=== PATIENT | female | born 1960 | race Caucasian/White ===

== ENCOUNTER 2018-04-01 09:00 | Outpatient (RCR) | payer OTHER, SELFPAY ==
--- NOTE | 2018-03-02 09:30 | PTTR_ITS ---
DATE: 03/02/18 SUBJECTIVE: Indicated she is slowly improving, still has sensitivity at end range flexion. OBJECTIVE: * x Ultrasound - (x 8 mins) - 51730x9: Received ultrasound x 8 minutes at 3 mHz at 1.0 w/cm2 to left greater tubercle region. Manual therapy: (05839l6). Mobilization of left fannie-hum jt while in supine consisting of inferior and posterior glides, as well as caudal distraction. AA/PROM throughout all planes. STM to posterior cuff and TFM to anterior cuff. PA mobs at grade 1/2 to mid to upper thoracic vertebrae. CFM to lev scap and periscapular region. Therapeutic procedures (70981o4). * x See flow sheet: Focus on AAROM , scap stabilization and light theraband resisted IR/ ER. Performed 10 minutes of wellness with assistive personnel at no charge. * x Provided skilled instruction in proper exercise performance * x Provided skilled manual cues to facilitate proper muscle recruitment and/ or movement pattern * x Electrical Stim Unattended - [id number]: Ended session with IFC and MHP x 15 minutes to left shoulder at no charge. Direct treatment time: 40 minutes Total treatment time: 65 minutes
--- NOTE | 2018-03-04 10:30 | PTTR_ITS ---
DATE: 03/04/18 SUBJECTIVE: Delphine indicates that she continues to note improvement being made with her treatment. Manual therapy: (22461k3). Did receive mobilization of the L GH joint while in supine position. Mobilization did include inferior/posterior glides, caudal distraction, AAROM throughout all planes, cross friction to the greater tubercle region was performed as well as positional release techniques to posterior cuff and brief trigger point work throughout the periscapular region and upper trap. While in prone position did receive PA mobs at grade 2 to the thoracic vertebra. Did receive ultrasound 3 mhz, 50% duty cycle at 1.0 w/cm2 to L greater tubercle region x8 mins. Therapeutic procedures (21715s5). * x See flow sheet: with focus on scap stabilization and cuff strengthening. * x Other: finishing with wellness. She ended with IFC with moist heat x15 mins while in seated position at no charge. Direct treatment time: 30 mins Total treatment time: 60 mins SG/dl
--- NOTE | 2018-03-08 09:30 | PTTR_ITS ---
DATE: 03/08/18 SUBJECTIVE: Patient reports her shoulders have felt aggravated the past few days. She states she has been doing some lifting at work over the weekend. Rates her pain overall as 3-4/10. States she has been compliant with her HEP including the shoulder ER stretches. OBJECTIVE: Manual therapy: (19133g3). Reassessed left shoulder AROM at start of session. Flexion 150 degrees which is equal to right shoulder flexion, abduction 180, FIR to T9, and ER to 40 degrees. Performed left glenohumeral caudal distraction. Grade 2/3 left glenohumeral joint mobilizations inferior and posterior directions. STM anterior and posterior cuff, upper trapezius, and levator scapula. TP release infraspinatus/teres minor musculature. Cross friction massage over greater tuberosity. PROM into left shoulder flexion, abduction, ER, and IR. Therapeutic procedures (33945l2). [X] See flow sheet: Continued progressing left shoulder ROM, scapular stabilization and rotator cuff strengthening program. [X] Provided skilled instruction in proper exercise performance: for proper body mechanics and postural awareness. [X] Provided skilled manual cues to facilitate proper muscle recruitment and/or movement pattern: Continued with wellness portion of program x 20 minutes to complete ther-ex. Followed by 10 minutes of cryotherapy to the left shoulder. Will continue to advance and progress to strong I self management program within symptom allowance. Will monitor response to holding on the ultrasound. Direct treatment time: 30 minutes Total treatment time: 60 minutes Agatha Verma, SPT Lauren Almanza,MPT
--- NOTE | 2018-03-11 09:30 | PTTR_ITS ---
DATE: 03/11/18 SUBJECTIVE: Patient reports she has no pain upon arrival. She has been completing her HEP. She is working everyday this weekend. States she felt good after the exercises last session. OBJECTIVE: Manual therapy: (07021n0). Performed left glenohumeral joint caudal distraction. Grade 2/3 inferior and posterior glenohumeral joint mobilizations. STM left anterior and posterior cuff, upper trapezius, and levator scapula. Cross friction massage over greater tuberosity. Patient is still sensitive over greater tuberosity and reminded to perform self cross friction massage at home for desensitization. P/AAROM into shoulder flexion, abduction, ER, and IR. Therapeutic procedures (40015z3). [X] See flow sheet: Continued progressing left shoulder ROM, scapular stabilization, and rotator cuff strengthening program. [X] Provided skilled instruction in proper exercise performance: for proper body mechanics and postural awareness [X] Provided skilled manual cues to facilitate proper muscle recruitment and/or movement pattern: to inhibit upper trapezius activation during standing rows. Continued with wellness portion of program x 10 minutes for completion of ther- ex. Cryotherapy x 10 minutes to left shoulder in seated position post session. Direct treatment time: 30 minutes Total treatment time: 50 minutes Agatha Verma, SPT Lauren Almanza, MPT
--- NOTE | 2018-03-14 10:00 | PTTR_ITS ---
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 Post PT session patient indicated shoulder was feeling better than upon arrival. OBJECTIVE: Manual therapy: (81764n2). Mobilization of left fannie-hum jt while in supine consisting of inferior / posterior glides, caudal and lateral distraction and P/AAROM throughout all planes. TFM to anterior cuff, PRT to posterior cuff and TPM to upper traps and lev scap soft tissue. Performed 10 reps of active assistive PNF D1/D2 exercise within pain free ROM today. Therapeutic procedures (50105e6). * x See flow sheet: Focus was on AAROM, scap stabilization and rotator cuff strengthening. Performed 15 minutes of wellness with assistive personnel at no charge. * x Provided skilled instruction in proper exercise performance * x Provided skilled manual cues to facilitate proper muscle recruitment and/ or movement pattern * Ended session with IFC and cryotherapy x 15 minutes at no charge. Direct treatment time: 30 minutes Total treatment time: 60 minutes
--- NOTE | 2018-03-17 13:34 | PTTR_ITS ---
DATE: 03/17/18 SUBJECTIVE: Delphine reports that her shld is still sore but is feeling better today than earlier this week. OBJECTIVE: Manual therapy: (71011c2). mobilizations of left GH jt including posterior and inferior glides, caudal and lateral distractions. P/AAROM. STM t/o posterior cuff as well as levator scap and upper trap. CFM over anterior cuff, I also worked into her deltoid area. Therapeutic procedures (79479v5). * x See flow sheet: RTC strengthening and scapular stabilizations. * x Provided skilled instruction in proper exercise performance: proper scapular positioning. She ended with IFC and cryo to shld x 15 min at no charge. Direct treatment time: 30 min Total treatment time: 55 min
--- NOTE | 2018-03-21 09:00 | PTTR_ITS ---
DATE: March 21, 2018 SUBJECTIVE: Delphine reports ~75 % improved since her IE. She however notes that she had a tough weekend noting increased tightness into her left shoulder and cervical spine. She awoken with a tension TAYLOR on Wednesday and has struggled with it since. OBJECTIVE: Upon reassessment AROM left shoulder flexion 150 degrees, abduction 160 with painful arch, IR T9, ER 55 degrees. PROM flexion 160 degrees , abduction 175 degrees, IR 80 degrees at 90 degrees abduction, ER 75 degrees at 90 degrees abduction. Manual therapy: (36526x3). Manual cervical distractions. Side bending and rotation stretching. GH joint mobilization to the left shoulder Gr III inferior and posterior glides. STM throughout the anterior and posterior cuff. CFM to the greater tuberosity. TPR to the upper trap, lev scap and throughout the periscapular musculature. P/AAROM performed throughout all planes. Therapeutic procedures (21367g9). * HEP review: Recommended self massage techniques with use of tennis ball / theracane or wand to reduce triggers points that continue to develop. * X See flow sheet: Incorporated modified program today due to level of irritation. * X Provided skilled instruction in proper exercise performance: * X Provided skilled manual cues to facilitate proper muscle recruitment and/ or movement pattern: Electrical Stim Unattended - 91958w1: Provided to the left shoulder post therex along with cryotherapy for 15 minutes at no charge. She does not have a follow up consult with her PCP at this time however due to continued pain and limited function with lifting and overhead tasks feel at this time she consult with Dr. Woods again in question of further intervention via injection or orthopedic consult. Direct treatment time: 40 minutes Total treatment time: 55 minutes
--- NOTE | 2018-03-24 09:03 | PTTR_ITS ---
DATE: 03/24/18 SUBJECTIVE: Delphine indicates that her shoulder has actually felt pretty good for the past couple of days. Does get some increasing soreness with mobilization and therapeutic exercises, but realizes she has to continue stretching the shoulder in order to increase her ROM. OBJECTIVE: Manual therapy: (96144j9). Mobs of the left glenohumeral jt while in supine to include inferior and posterior glides, caudal and lateral distractions as well as AA/PROM throughout all planes. Minimal sensitivity noted with palpation of the anterior cuff, but did have notable sensitivity at the posterior cuff. Performed positional release techniques to this area, as well as brief trigger point work to the upper traps and rhomboids while in right side lying with a pillow between her knees, under her head and under her left UE. Therapeutic procedures (98905e7). * x See flow sheet: focus was on AAROM with [place] Pulleys, finger ladder and ball on the wall. * x Electrical Stim Unattended - 18313o3: applied x15 min. with cryotherapy while seated to the left shoulder. Direct treatment time: 30 min. Total treatment time: 45 min. SG/gc
--- NOTE | 2018-03-28 08:30 | PTTR_ITS ---
DATE: 03/28/18 SUBJECTIVE: Delphine continues to complain of up and down symptoms. She is overall had an okay weekend. Follows up with Dr. Woods on the . Manual therapy: (90111l5). GH joint mobilization of the L shoulder, inferior/ posterior glides, grade 2-3, caudal distraction, P/AAROM performed throughout all planes. PNF D1-D2 performed AA, soft tissue work to the anterior/posterior cuff, desensitization via cross friction to the greater tuberosity, trigger point work to the upper trap, levator scap. Therapeutic procedures (30298k0). Promoting rotator cuff, scap stabilization, end range GH mobility * x See flow sheet: * x Provided skilled instruction in proper exercise performance: * x Provided skilled manual cues to facilitate proper muscle recruitment and/ or movement pattern: Ended with cryotherapy to L shoulder post session. Direct treatment time: 30 mins Total treatment time: 50 mins with 10 mins of wellness and ice to the shoulder. KW/dl
--- NOTE | 2018-04-01 09:00 | PTTR_ITS ---
DATE: April 01, 2018 SUBJECTIVE: Delphine reports that Dr. Woods did not feel that an injection would help at this time. He feels that she can continue with her HEP at this time on her own to continue to promote her end range mobility. She continues to have ups and downs. She continues to utilize ice for pain reduction. Overall continues to feel that she has made gains just wished it would last longer. OBJECTIVE: Manual therapy: (77040q6).GH joint mobilization to the left shoulder in supine Gr II/III inferior and posterior glides. P/AAROM to the left shoulder. STM throughout the anterior and posterior cuff. CFM to the greater tuberosity and TPR to the upper trap and lev scap. Recommended that she continue with self massage techniques via therawand or cane or use of a tennis ball. Therapeutic procedures (64726p5). * X HEP review: Upgraded HEP to include PRE to the RTC and scapular stabilizers. Issued orange resistance band for continued stabilization. Reviewed her home stretches and emphasized importance of continuing with her ROM to prevent loss of mobility. * X See flow sheet: RTC strength and scapular stabilization along with AA/ AROM via wall climb, pulleys and ball walk on wall. * X Provided skilled instruction in proper exercise performance: promoting body mechanics and postural awareness. * X Provided skilled manual cues to facilitate proper muscle recruitment and/ or movement pattern: avoiding compensatory movement patterns. * X Other: Recommended utilizing the wall as a posture correction for continues to remain very forward increasing level of impingement pain. Electrical Stim Unattended - 57946y4: Provided to the left shoulder post session along with cryotherapy for 15 minutes. Patient at this time will be considered discharged from our care to independent self management program via MD order. Patient will contact us with any questions or concerns. If further problems occur recommend further consultation with PCP. Direct treatment time: 40 minutes Total treatment time: 55 minutes
== END 2018-04-01 23:59 | disposition home or self-care (01) ==
LOC: PT 09:00
PROVIDERS: PCP Emergency Medicine; Referring Provider Emergency Medicine; Visit Provider Emergency Medicine
DX: M75.02 Adhesive capsulitis of left shoulder (principal); M65.812 Other synovitis and tenosynovitis, left shoulder
CPT/HCPCS: 97014; 97035; 97110; 97140

== ENCOUNTER 2018-05-20 08:36 | Emergency (ER) | payer OTHER, SELFPAY ==
[2018-05-20 09:05] VITALS: BP 134/78; PULSE 120; RESP 16; TEMP 36.6; O2SAT 95
[2018-05-20] MEDS: Normal Saline 1,000 ML 1000 ML IV ×2 (09:40→12:10)
[2018-05-20] MEDS: Ondansetron 4 MG/2 ML VIAL IVP ×2 (09:46→12:43)
[2018-05-20] MEDS: MORPHine 10 MG/ML VIAL 2 MG IVP (09:47)
[2018-05-20 09:53] LABS: Abs Immature Grans 0.01 k/cumm (0.0-0.09); Absolute Basophil Count 0.01 k/cumm (0.0-0.2); Absolute Eosinophil Count 0.15 k/cumm (0.0-0.7); Absolute Lymphocyte Count 1.31 k/cumm (1.2-3.4); Absolute Monocyte Count 0.56 k/cumm (0.11-0.7); Absolute Neutrophil Count 6.99 k/cumm (1.2-6.7); Basophils % 0.1; Eosinophils % 1.7; HCT 42.7 % (36.0-46.0); HGB 13.8 g/dL (12.0-15.5); Immature Grans % 0.1; Lymphocytes % 14.5; Mean Corp. HGB Concentration 32.3 g/dL (32.0-36.0); Mean Corpuscular Hemoglobin 30.3 pg (27.0-33.0); Mean Corpuscular Volume 93.6 fL (80-95); Mean Platelet Volume 9.7 fL (8.0-11.0); Monocytes % 6.2; Neutrophils % 77.4; Platelet Count 298 x1000/uL (130-400); RBC 4.56 m/cumm (4.00-5.20); White Blood Cell Count 9.03 k/cumm (4.4-10.8)
[2018-05-20 10:07] LABS: ALT 37 U/L (12-78); AST 25 U/L (15-37); Albumin 3.5 g/dL (3.4-5.0); Alkaline Phosphatase 116 U/L (46-116); Anion Gap 11.2 mmol/L (3-11); BUN 18 mg/dL (7-18); Bilirubin, Total 0.6 mg/dL (0.2-1.0); CO2 25.8 mmol/L (21.0-32.0); CREATININE 1.37 mg/dL (0.55-1.02); Calcium 9.1 mg/dL (8.5-10.1); Chloride 102 mmol/L (98-107); Estimated GFR 39.74 (mL/min/1.73m2); Glucose 177 mg/dL (70-100); Lipase 96 U/L (73-393); Potassium 3.6 mmol/L (3.5-5.1); Sodium 139 mmol/L (136-145); Total Protein 7.9 g/dL (6.4-8.2)
[2018-05-20] MEDS: Omnipaque 350 MG/ML 50 ML BTL IJ (10:07)
[2018-05-20] MEDS: Breeza Beverage 473 ML BTL PO ×2 (10:07→10:08)
--- NOTE | 2018-05-20 10:46 | DI.CT_ITS ---
SYMPTOMS/DIAGNOSIS: ABD PAIN ABDOMINAL AND PELVIC CT: CT examination of the abdomen and pelvis was performed with oral contrast only. Images obtained through the lung bases are unremarkable. Note is made of hepatic steatosis. The gallbladder has been surgically removed. A small calcified splenic presumed granuloma is noted. The pancreas is unremarkable in appearance. No biliary dilatation seen. The abdominal aorta is of normal diameter. No abdominal or pelvic adenopathy. Bilateral fat containing inguinal hernias are noted. The adrenals and kidneys appear normal. No evidence of urinary tract calcification or obstruction. The appendix appears normal. The cecum appears to have a thickened irregular wall. The possibility of neoplastic vs inflammatory disease raised. Correlation with colonoscopy recommended. There is diverticulosis without evidence of diverticulitis. STRADDLE BUG structures appear intact. CONCLUSION: Normal appearance of the appendix but question irregular cecal wall thickening, neoplastic vs inflammatory cause. Colonoscopy recommended for further evaluation.
--- NOTE | 2018-05-20 12:17 | W.ED.GENAD ---
Discharge Plan Disposition Patient Disposition: HOME Condition: Improving Discharge Details Chief Complaint: Nausea/Vomit/Diar Clinical Impression: Abdominal pain, Nausea vomiting and diarrhea, Decreased renal function Primary Care Provider: Benny Woods ED Provider: Nishant Alvarez Home Meds and New Rx's Prescriptions: New ondansetron 4 mg tablet,disintegrating 4 mg PO QID PRN (Reason: nausea and vomiting) Qty: 12 RF: 0 Continue ibuprofen 800 MG tablet 800 mg PO TID PRNQty: 90 RF: 0 triamcinolone acetonide 60 ML lotion 1 grecia Topical DAILY, THEN PRN Qty: 1 RF: 0 cholecalciferol (vitamin D3) 1,000 UNIT tablet 1,000 unit PO DAILY Qty: 90 RF: 3 albuterol sulfate [Proventil HFA] 6.7 GM HFA aerosol inhaler 2 puff Inhalation Q6H PRN Qty: 1 RF: 2 duloxetine [Cymbalta] 60 MG capsule,delayed release(DR/EC) 60 mg PO DAILY Qty: 90 RF: 3 omeprazole 20 MG capsule,delayed release(DR/EC) 20 mg PO DAILY Qty: 90 RF: 3 sumatriptan succinate [Imitrex] 50 MG tablet 50 mg PO ONCE Qty: 10 RF: 4 levothyroxine [Synthroid] 100 MCG tablet 100 mcg PO DAILY Qty: 90 RF: 3 quetiapine 100 MG tablet 100 mg PO HS RF: 0 lamotrigine 100 MG tablet 100 mg PO DAILY RF: 0 modafinil 100 MG tablet 100 mg PO DAILY RF: 0 lisinopril 20 MG tablet 20 mg PO DAILY Qty: 60 RF: 3 clonazepam 1 MG tablet 1 mg PO HS Qty: 60 RF: 0 Discharge Instructions Instructions: Acute Nausea and Vomiting (ED), Abdominal Pain (ED) Additional Instructions: Feel free to return to the emergency department immediately for any new or worsening symptoms otherwise follow-up with your primary care provider and general surgeon for further testing and reassess Referrals: Benny Woods DO [Primary Care Provider] - 1 week (Please follow-up with your primary care provider for reassessment of your kidney function) Varinder Bryant DO [ [facility] STAFF PHYSICIAN] - 1 week (Please follow-up with general surgeon in the next 1-2 weeks for arrangement of colonoscopy testing) Discharge Data Discharge Date/Time-TO BE ENTERED AT DEPARTURE: 05/20/18 14:52 Medical Decision Making Patient presenting to the emergency department for abdominal pain. Patient states left lower pain. Physical exam shows diffuse nonspecific abdominal pain otherwise unremarkable exam. Labs and CT imaging performed. Pending results patient given Zofran, IV fluids, and morphine. Labs show signs of dehydration and some notation made of previous labs converted today decreasing renal function. It is questionable if this is more due to patient not being able to tolerate any p.o. intake for the last 2-3 days or if ongoing decreased renal function is being noted. Plan to give second liter of IV fluids pending other results. Also of notation is no leukocytosis and otherwise unremarkable labs. Patient with radiologist regarding CT imaging shows normal appendix, post cholecystectomy, and some cecal wall thickening that is concerning for inflammatory changes versus possible malignancy. She was reassessed and did have some improvement of her symptoms. Patient p.o. challenged and was able to tolerate intake of water which had not been able to do. Patient encouraged to stay well-hydrated and advance diet as tolerated. Patient placed up on follow-up list for primary care for reassessment of decreasing renal function versus dehydration and also placed on general surgery follow-up list for need of colonoscopy at recommendation of radiologist which I agree with this recommendation. After discussion of diagnosis and plan of care patient is no further needs, questions, or concerns and states clear understanding to return to the emergency department for any worsening symptoms. HPI General Mode of arrival: ambulatory. Date/Time Provider Initiated Documentation: 05/20/18 09:10. Limitations to Documentation: no limitations. Information obtained by: patient, RN notes reviewed and old records reviewed. History of Present Illness 57 year old F presents to the emergency department with the chief complaint of abd pain, described as moderate, with intensity rated at 8. Quality is described as aching and sharp, and is localized to the abdomen. Patient started experiencing this year(s) (2) and it has been intermittent. No relieving factors improve symptom(s), No exacerbating factors reported . Patient did receive the following treatments prior to arrival, none Related Data Home Medications Medication Instructions Recorded Confirmed ibuprofen 800 mg PO TID PRN #90 tab-cap 11/07/14 triamcinolone acetonide 1 grecia TOPICAL DAILY, THEN PRN #1 12/11/14 tube cholecalciferol (vitamin D3) 1,000 unit PO DAILY #90 tab 10/18/15 albuterol sulfate [Proventil HFA] 2 puff INHALATION Q6H PRN #1 puff 01/10/16 duloxetine [Cymbalta] 60 mg PO DAILY #90 tab-cap 09/04/16 omeprazole 20 mg PO DAILY #90 tab-cap 10/07/16 05/20/18 sumatriptan succinate [Imitrex] 50 mg PO ONCE #10 tab 03/12/17 05/20/18 levothyroxine [Synthroid] 100 mcg PO DAILY #90 tab-cap 06/29/17 05/20/18 lamotrigine 100 mg PO DAILY tab-cap 01/12/18 lisinopril 20 mg PO DAILY #60 tab-cap 01/12/18 05/20/18 modafinil 100 mg PO DAILY 01/12/18 quetiapine 100 mg PO HS 01/12/18 05/20/18 clonazepam 1 mg PO HS #60 tab 03/31/18 ondansetron 4 mg PO QID PRN #12 tab 05/20/18 Previous Rx's Medication Instructions Recorded levothyroxine [Synthroid] 100 mcg PO DAILY #90 tab-cap 06/29/17 lisinopril 20 mg PO DAILY #60 tab-cap 01/12/18 clonazepam 1 mg PO HS #60 tab 03/31/18 ondansetron 4 mg PO QID PRN #12 tab 05/20/18 Allergies Allergy/AdvReac Type Severity Reaction Status Date / Time lactose Allergy Unverified 05/20/18 13:41 ziprasidone HCl [From Geodon] AdvReac Intermediate leg pain, Unverified 05/20/18 13:41 couldn't sit still ziprasidone mesylate AdvReac Intermediate leg pain, Unverified 05/20/18 13:41 [From Geodon] couldn't sit still amoxicillin [Amoxicillin] AdvReac GI upset Unverified 05/20/18 13:41 Metronidazole HCl AdvReac GI UPSET Unverified 05/20/18 13:41 [From Flagyl] General Stated Complaint: Nausea/Vomit/Diar MAYRA: 3 Review of Systems Constitutional Denies chills, Denies fever(s) and Reports poor appetite Cardiovascular Denies chest pain and Denies dyspnea Respiratory Denies dyspnea Gastrointestinal Reports as per HPI, Reports abdominal pain, Denies melena, Reports bloating, Denies change in bowel habits, Denies constipation, Denies heartburn, Reports diarrhea, Reports nausea and Reports vomiting Genitourinary Denies hematuria, Denies urinary incontinence, Denies urinary hesitancy and Denies urinary urgency Integumentary/Breasts Denies rash PFSH Social History Smoking/Tobacco Use Status: Never Surgical History Biopsy of breast Cholecystectomy Cystoscopy Oophrectomy, Left (~04/2012) Exam Const General: cooperative Orientation: alert, awake and oriented x3 Resp Effort & Inspection: normal respiratory effort and able to speak in complete sentences Auscultation: clear to auscultation bilaterally Cardio Rate: regular rate Rhythm: regular rhythm Heart Sounds: S1 normal and S2 normal GI Palpation: soft, no hepatosplenomegaly, not firm, no guarding, no masses, no pulsatile masses, not rigid, no splenomegaly and tender in the epigastrum, in the LLQ and in the LUQ; not at McBurney's point and Falcon's sign negative Auscultation: normal bowel sounds Back/Spine/Pelvis Back: no CVA tenderness Neuro General: alert, awake, oriented x3, gait normal and moves all extremities Course Vital Signs Temperature 36.6 C 05/20/18 09:05 Pulse 120 H 05/20/18 09:05 Respiratory Rate 16 05/20/18 09:05 Blood Pressure 134/78 05/20/18 09:05 Pulse Oximetry 95 05/20/18 09:05 Temperature 36.6 C 05/20/18 09:05 Temperature Source Skin 05/20/18 09:05 Pulse 120 H 05/20/18 09:05 Respiratory Rate 16 05/20/18 09:05 Blood Pressure 134/78 05/20/18 09:05 Blood Pressure Position Sitting 05/20/18 09:05 Pulse Oximetry 95 05/20/18 09:05 Oxygen Delivery Method Room Air 05/20/18 09:05 Oxygen Flow Rate 0 05/20/18 09:05 Pain Level 8 05/20/18 09:47 Lab/Test Results Lab/Test Results: Laboratory Tests Range/Units 05/20/18 05/20/18 09:40 09:40 WBC (4.4-10.8) k/cumm 9.03 RBC (4.00-5.20) m/cumm 4.56 Hgb (12.0-15.5) g/dL 13.8 Hct (36.0-46.0) % 42.7 MCV (80-95) fL 93.6 MCH (27.0-33.0) pg 30.3 MCHC (32.0-36.0) g/dL 32.3 RDW (11.7-14.6) % 14.0 Plt Count (130-400) x1000/uL 298 MPV (8.0-11.0) fL 9.7 Immature Gran % 0.1 Neutrophils % 77.4 Lymphocytes % 14.5 Monocytes % 6.2 Eosinophils % 1.7 Basophils % 0.1 Absolute Neutrophils (1.2-6.7) k/cumm 6.99 H Absolute Lymphocytes (1.2-3.4) k/cumm 1.31 Absolute Monocytes (0.11-0.7) k/cumm 0.56 Absolute Eosinophils (0.0-0.7) k/cumm 0.15 Absolute Basophils (0.0-0.2) k/cumm 0.01 Sodium (136-145) mmol/L 139 Potassium (3.5-5.1) mmol/L 3.6 Chloride (98-107) mmol/L 102 Carbon Dioxide (21.0-32.0) mmol/L 25.8 Anion Gap (3-11) mmol/L 11.2 H BUN (7-18) mg/dL 18 Creatinine (0.55-1.02) mg/dL 1.37 H Estimated GFR/1.73 m2 (mL/min/1.73m2) 39.74 Glucose (70-100) mg/dL 177 H Calcium (8.5-10.1) mg/dL 9.1 Total Bilirubin (0.2-1.0) mg/dL 0.6 AST (15-37) U/L 25 ALT (12-78) U/L 37 Alkaline Phosphatase (46-116) U/L 116 Total Protein (6.4-8.2) g/dL 7.9 Albumin (3.4-5.0) g/dL 3.5 Lipase (73-393) U/L 96
[2018-05-20 12:46] VITALS: BP 115/61; PULSE 75; TEMP 36.9; O2SAT 94
[2018-05-20 14:24] LABS: Bilirubin Negative (Negative); Blood Trace-intact (Negative); Clarity Clear; Glucose Negative (Negative); Ketones Negative (Negative); Leukocyte Esterase Negative (Negative); Nitrite Negative (Negative); Urobilinogen 0.2 EU/dL (Up TO 0.2); pH 5.5 (5-8)
[2018-05-20 14:35] LABS: Bacteria Moderate HPF (Negative); C & S Indicated? No/Sq. Contamination; Casts Negative LPF (Negative); Crystals Negative HPF (Negative); Epithelial Cells Many HPF (Negative); Mucus Moderate (Negative); WBC 0-2 HPF (0-5)
--- NOTE | 2018-05-23 08:48 | PDOC.ERCMPRO ---
Care Management Progress Note 05/23-Serafin TREJO requested assistance with a PCP (Chuck) f/u this week for decreased renal function and a general surgery referral for abnormal CT-recommend colonoscopy. Referral faxed to [facility] and [facility] this am.
--- NOTE | 2018-05-23 08:50 | CMPROGNOTE_ITS ---
Care Management Progress Note 05/23-Serafin TREJO requested assistance with a PCP (Chuck) f/u this week for decreased renal function and a general surgery referral for abnormal CT- recommend colonoscopy. Referral faxed to [facility] this am.
== END 2018-05-20 14:52 | disposition home or self-care (01) ==
PROVIDERS: Emergency Provider Nurse Practitioner Family; PCP Emergency Medicine
DX: R11.2 Nausea with vomiting, unspecified (principal); R19.7 Diarrhea, unspecified; R10.32 Left lower quadrant pain; R93.3 Abnormal findings on diagnostic imaging of other parts of digestive tract; R94.4 Abnormal results of kidney function studies
CPT/HCPCS: 36415; 80053; 83690; 96361; 96374; 96375; 96376; 99284; 74176; 81003; 81015; 85025; J2270; J2405; Q9967

== ENCOUNTER 2018-06-14 10:54 | Day surgery (SDC) | payer OTHER, SELFPAY ==
[2018-06-14 11:00] VITALS: BP 158/103; PULSE 92; RESP 18; TEMP 37.3; O2SAT 94
[2018-06-14] MEDS: Lactated Ringers 1,000 ML 30 ML IV (11:45)
--- NOTE | 2018-06-14 14:28 | W.PM.ENDDOP ---
Date of service: 06/14/18 Time of Service: 14:28 Endoscopy Report DATE OF PROCEDURE: 06/14/18 PRE-OP DIAGNOSIS: 1. Abnormal findings on CT of the cecum.2. Abdominal pain w/n,v,d POST-OP DIAGNOSIS: other (1. Abnormal findings on CT 2. Abdominal pain w/n,v,d 3.Mild sigmoid diverticulosis) PROCEDURE: 1. Esophagogastroduodenoscopy with biopsy by cold forceps 2. Colonoscopy to cecum with random biopsies of the colon and rectum SURGEON: Varinder Bryant ANESTHESIA: MAC (Nanette Bob CRNA; ASA 3Mallampati class) ESTIMATED BLOOD LOSS: 1 PATHOLOGY: other (1. Gastric antral biopsies 2. Random colon biopsies 3. Random rectal biopsies) DISPOSITION: same day INDICATIONS: 57-year-old woman referred for abdominal pain with associated nausea, vomiting, and diarrhea. She reports a 1-2-year history of these symptoms that were intermittent mid occurring once every few months and lasting for 24-48 hours. She does not recall any association with food. This did start after her gallbladder was removed. She presented to the emergency room after her symptoms did not not resolve in 24-48 hours, but have lasted 2-3 weeks. She is really not had much improvement since being seen in the emergency room. She still reports abdominal pain that is nonfocal. She still has not having intermittent nausea, vomiting, and diarrhea. She has been following a brat diet, but is able to tolerate little else than that diet. It was recommended she undergo upper and lower endoscopy. The upper endoscopy and colonoscopy procedures were reviewed with her, and the risks of the procedure was discussed. All her questions were answered to her satisfaction. Consents been obtained to proceed with upper gastrointestinal endoscopy and colonoscopy. PREP: Miralax/Dulcolax (Prep quality good) FINDINGS: In examining the upper gastrointestinal tract from the oropharynx to the third portion of the duodenum, the duodenum and esophagus appear grossly normal. There were some inflammatory changes seen in the antrum of the stomach and multiple biopsies were taken. On examining the colon from cecum to anus, there is some mild sigmoid diverticulosis noted, but no other gross pathology was identified. Random biopsies were taken throughout the colon and rectum. PROCEDURE DESCRIPTION: The patient was brought to the procedure room. Monitoring for telemetry, end-tidal CO2, O2 saturation, blood pressure were applied. An appropriate timeout was taken reviewing the patient's identification, allergies, medications,and procedure. Sedation was titrated for effect by the SOIL CHEMIST. The upper endoscopy was performed first. An Olympus variable stiffness endoscope was advanced from the oropharynx to the third portion of the duodenum without difficulty. The scope was then withdrawn in circumferential manner from the duodenum back to the oropharynx. In performing withdrawal of the scope, the duodenum appeared grossly normal. The scope was then withdrawn into the gastric antrum and retroflexed to examine the entire stomach, and there was some shallow ulcerations noted in the gastric antrum but the remainder of the stomach anterior, posterior, lesser curvature, and greater curvature appeared grossly normal. Biopsies were taken from the gastric antrum submitted for pathology. The scope was then withdrawn to the GE junction which I measured at 30 cm The Z line was at 37 cm and appeared regular. I withdrew the scope through the remainder of the esophagus all which appear grossly normal. Scope was then withdrawn terminating the upper endoscopy. The patient was then repositioned for colonoscopy. Sedation was titrated for effect again. Once adequate sedation was achieved, I performed a inspection of the external perineum, and a digitial rectal examination. No significant external abnormalities were noted. On digital rectal examination, there was no blood, no masses, good rectal tone. I advanced the colonoscope from the anus to the cecum under direct visualization. The cecum was identified by the ileal-cecal valve, and the appendiceal orifice. The scope was then withdrawn in circumferential manner from the cecum to the rectum. No abnormalites were noted in the colon, and in particular the cecum and ascending colon appeared grossly normal with no significant abnormalities noted. Random biopsies were taken throughout the colon and submitted for pathology. There was some mild sigmoid diverticulosis noted no other abnormalities.. The scope was then withdrawn into the rectum, and retroflexed. No abnormalities were noted of the rectum or anorectal junction. Random biopsies were taken from the rectum for submission to pathology. The scope was then withdrawn, terminating the procedure. There were no complications during the procedure, and the patient tolerated the procedure well. The patient was returned to the day surgery recovery area in good condition. Plan: We will await biopsy results for making further recommendations.
--- NOTE | 2018-06-14 14:32 | ENDO_ITS ---
Date of service: 06/14/18 Time of Service: 14:28 Endoscopy Report DATE OF PROCEDURE: 06/14/18 PRE-OP DIAGNOSIS: 1. Abnormal findings on CT of the cecum.2. Abdominal pain w/ n,v,d POST-OP DIAGNOSIS: other (1. Abnormal findings on CT 2. Abdominal pain w/n,v,d 3.Mild sigmoid diverticulosis) PROCEDURE: 1. Esophagogastroduodenoscopy with biopsy by cold forceps 2. Colonoscopy to cecum with random biopsies of the colon and rectum SURGEON: Varinder Bryant ANESTHESIA: MAC (Nanette Bob CRNA; ASA 3Mallampati class) ESTIMATED BLOOD LOSS: 1 PATHOLOGY: other (1. Gastric antral biopsies 2. Random colon biopsies 3. Random rectal biopsies) DISPOSITION: same day INDICATIONS: 57-year-old woman referred for abdominal pain with associated nausea, vomiting, and diarrhea. She reports a 1-2-year history of these symptoms that were intermittent mid occurring once every few months and lasting for 24-48 hours. She does not recall any association with food. This did start after her gallbladder was removed. She presented to the emergency room after her symptoms did not not resolve in 24-48 hours, but have lasted 2-3 weeks. She is really not had much improvement since being seen in the emergency room. She still reports abdominal pain that is nonfocal. She still has not having intermittent nausea, vomiting, and diarrhea. She has been following a brat diet , but is able to tolerate little else than that diet. It was recommended she undergo upper and lower endoscopy. The upper endoscopy and colonoscopy procedures were reviewed with her, and the risks of the procedure was discussed. All her questions were answered to her satisfaction. Consents been obtained to proceed with upper gastrointestinal endoscopy and colonoscopy. PREP: Miralax/Dulcolax (Prep quality good) FINDINGS: In examining the upper gastrointestinal tract from the oropharynx to the third portion of the duodenum, the duodenum and esophagus appear grossly normal. There were some inflammatory changes seen in the antrum of the stomach and multiple biopsies were taken. On examining the colon from cecum to anus, there is some mild sigmoid diverticulosis noted, but no other gross pathology was identified. Random biopsies were taken throughout the colon and rectum. PROCEDURE DESCRIPTION: The patient was brought to the procedure room. Monitoring for telemetry, end- tidal CO2, O2 saturation, blood pressure were applied. An appropriate timeout was taken reviewing the patient's identification, allergies, medications,and procedure. Sedation was titrated for effect by the LANDSCAPER. The upper endoscopy was performed first. An Olympus variable stiffness endoscope was advanced from the oropharynx to the third portion of the duodenum without difficulty. The scope was then withdrawn in circumferential manner from the duodenum back to the oropharynx. In performing withdrawal of the scope , the duodenum appeared grossly normal. The scope was then withdrawn into the gastric antrum and retroflexed to examine the entire stomach, and there was some shallow ulcerations noted in the gastric antrum but the remainder of the stomach anterior, posterior, lesser curvature, and greater curvature appeared grossly normal. Biopsies were taken from the gastric antrum submitted for pathology. The scope was then withdrawn to the GE junction which I measured at 30 cm The Z line was at 37 cm and appeared regular. I withdrew the scope through the remainder of the esophagus all which appear grossly normal. Scope was then withdrawn terminating the upper endoscopy. The patient was then repositioned for colonoscopy. Sedation was titrated for effect again. Once adequate sedation was achieved, I performed a inspection of the external perineum, and a digitial rectal examination. No significant external abnormalities were noted. On digital rectal examination, there was no blood, no masses, good rectal tone. I advanced the colonoscope from the anus to the cecum under direct visualization. The cecum was identified by the ileal-cecal valve, and the appendiceal orifice. The scope was then withdrawn in circumferential manner from the cecum to the rectum. No abnormalites were noted in the colon, and in particular the cecum and ascending colon appeared grossly normal with no significant abnormalities noted. Random biopsies were taken throughout the colon and submitted for pathology. There was some mild sigmoid diverticulosis noted no other abnormalities.. The scope was then withdrawn into the rectum, and retroflexed. No abnormalities were noted of the rectum or anorectal junction. Random biopsies were taken from the rectum for submission to pathology. The scope was then withdrawn, terminating the procedure. There were no complications during the procedure, and the patient tolerated the procedure well. The patient was returned to the day surgery recovery area in good condition. Plan: We will await biopsy results for making further recommendations.
--- NOTE | 2018-06-14 14:53 | STOM_PTH ---
PATIENT: Delphine Chou V LOC: [facility] U#:[id number] AGE/SX: 57/F ROOM: RE06/14/[address]: Varinder Bryant DO : 1960 BED: DIS: 06/14/2018 SPEC #: [id number] RECD: 06/14/18 17:30 STATUS: ERNST REQ #: [id number] NUNO: 06/14/18 14:[address]: Varinder Bryant DEPT: Surgical Specimen RECD BY: Keena Shahid ENTERED: 06/14/18 17:31 SP TYPE: STOMACH OTHR DR: Benny Woods DO Tissues: 1 - STOMACH BIOPSY 2 - BIOPSY BOWEL 3 - BIOPSY BOWEL Procedures: GROSS AND MICRO LEVEL 4 Comments: [id number]
--- NOTE | 2018-06-14 15:57 | W.PM.DSUDISC ---
Discharge Plan Disposition Patient Disposition: HOME Condition: Good Discharge Details Reason For Visit: ABDOMINA; PAIN, N/V/DIARRHEA Attending Provider: Varinder Bryant Primary Care Provider: Benny Woods Home Meds and New Rx's Prescriptions: Continue ibuprofen 800 MG tablet 800 mg PO TID PRNQty: 90 RF: 0 cholecalciferol (vitamin D3) 1,000 UNIT tablet 1,000 unit PO DAILY Qty: 90 RF: 3 albuterol sulfate [Proventil HFA] 6.7 GM HFA aerosol inhaler 2 puff Inhalation Q6H PRN Qty: 1 RF: 2 duloxetine [Cymbalta] 60 MG capsule,delayed release(DR/EC) 60 mg PO DAILY Qty: 90 RF: 3 sumatriptan succinate [Imitrex] 50 MG tablet 50 mg PO ONCE Qty: 10 RF: 4 levothyroxine [Synthroid] 100 MCG tablet 100 mcg PO DAILY Qty: 90 RF: 3 quetiapine 100 MG tablet 100 mg PO HS RF: 0 lamotrigine 100 MG tablet 100 mg PO DAILY RF: 0 modafinil 100 MG tablet 100 mg PO DAILY RF: 0 lisinopril 20 MG tablet 20 mg PO DAILY Qty: 60 RF: 3 clonazepam 1 mg tablet 1 mg PO HS Qty: 60 RF: 0 ondansetron 4 mg tablet,disintegrating 4 mg PO QID PRN (Reason: nausea and vomiting) Qty: 12 RF: 0 ranitidine HCl [Zantac] 150 mg Tablet 150 mg PO DAILY RF: 0 Discharge Instructions Instructions: Colonoscopy (DC), Upper Endoscopy (DC) Activity:: Activity as Tolerated Diet:: As Tolerated Discharge Orders Discharge Orders: Discharge Order (Routine); Ordered 06/14/18 Ordered By: Varinder Bryant DS: Diagnosis Discharge Diagnosis (1) Nausea, vomiting, and diarrhea: Status: Acute Asessment and Plan: Upper Endoscopy and Colonoscopy performed: Endoscopy Report DATE OF PROCEDURE: 06/14/18 PRE-OP DIAGNOSIS: 1. Abnormal findings on CT of the cecum.2. Abdominal pain w/n,v,d POST-OP DIAGNOSIS: other (1. Abnormal findings on CT 2. Abdominal pain w/n,v,d 3.Mild sigmoid diverticulosis) PROCEDURE: 1. Esophagogastroduodenoscopy with biopsy by cold forceps 2. Colonoscopy to cecum with random biopsies of the colon and rectum SURGEON: Varinder Bryant ANESTHESIA: MAC (Nanette Bob CRNA; ASA 3Mallampati class) ESTIMATED BLOOD LOSS: 1 PATHOLOGY: other (1. Gastric antral biopsies 2. Random colon biopsies 3. Random rectal biopsies) DISPOSITION: same day INDICATIONS: 57-year-old woman referred for abdominal pain with associated nausea, vomiting, and diarrhea. She reports a 1-2-year history of these symptoms that were intermittent mid occurring once every few months and lasting for 24-48 hours. She does not recall any association with food. This did start after her gallbladder was removed. She presented to the emergency room after her symptoms did not not resolve in 24-48 hours, but have lasted 2-3 weeks. She is really not had much improvement since being seen in the emergency room. She still reports abdominal pain that is nonfocal. She still has not having intermittent nausea, vomiting, and diarrhea. She has been following a brat diet, but is able to tolerate little else than that diet. It was recommended she undergo upper and lower endoscopy. The upper endoscopy and colonoscopy procedures were reviewed with her, and the risks of the procedure was discussed. All her questions were answered to her satisfaction. Consents been obtained to proceed with upper gastrointestinal endoscopy and colonoscopy. PREP: Miralax/Dulcolax (Prep quality good) FINDINGS: In examining the upper gastrointestinal tract from the oropharynx to the third portion of the duodenum, the duodenum and esophagus appear grossly normal. There were some inflammatory changes seen in the antrum of the stomach and multiple biopsies were taken. On examining the colon from cecum to anus, there is some mild sigmoid diverticulosis noted, but no other gross pathology was identified. Random biopsies were taken throughout the colon and rectum. PROCEDURE DESCRIPTION: The patient was brought to the procedure room. Monitoring for telemetry, end-tidal CO2, O2 saturation, blood pressure were applied. An appropriate timeout was taken reviewing the patient's identification, allergies, medications,and procedure. Sedation was titrated for effect by the MAINTENANCE INSTRUCTOR. The upper endoscopy was performed first. An Olympus variable stiffness endoscope was advanced from the oropharynx to the third portion of the duodenum without difficulty. The scope was then withdrawn in circumferential manner from the duodenum back to the oropharynx. In performing withdrawal of the scope, the duodenum appeared grossly normal. The scope was then withdrawn into the gastric antrum and retroflexed to examine the entire stomach, and there was some shallow ulcerations noted in the gastric antrum but the remainder of the stomach anterior, posterior, lesser curvature, and greater curvature appeared grossly normal. Biopsies were taken from the gastric antrum submitted for pathology. The scope was then withdrawn to the GE junction which I measured at 30 cm The Z line was at 37 cm and appeared regular. I withdrew the scope through the remainder of the esophagus all which appear grossly normal. Scope was then withdrawn terminating the upper endoscopy. The patient was then repositioned for colonoscopy. Sedation was titrated for effect again. Once adequate sedation was achieved, I performed a inspection of the external perineum, and a digitial rectal examination. No significant external abnormalities were noted. On digital rectal examination, there was no blood, no masses, good rectal tone. I advanced the colonoscope from the anus to the cecum under direct visualization. The cecum was identified by the ileal-cecal valve, and the appendiceal orifice. The scope was then withdrawn in circumferential manner from the cecum to the rectum. No abnormalites were noted in the colon, and in particular the cecum and ascending colon appeared grossly normal with no significant abnormalities noted. Random biopsies were taken throughout the colon and submitted for pathology. There was some mild sigmoid diverticulosis noted no other abnormalities.. The scope was then withdrawn into the rectum, and retroflexed. No abnormalities were noted of the rectum or anorectal junction. Random biopsies were taken from the rectum for submission to pathology. The scope was then withdrawn, terminating the procedure. There were no complications during the procedure, and the patient tolerated the procedure well. The patient was returned to the day surgery recovery area in good condition. Plan: We will await biopsy results for making further recommendations. (2) Abnormal finding on CT scan: Status: Acute
[2018-06-14 16:15] VITALS: BP 157/87; PULSE 75; RESP 18; TEMP 37.1; O2SAT 95
== END 2018-06-14 16:47 | disposition home or self-care (01) ==
PROVIDERS: PCP Emergency Medicine; Visit Provider Surgery
PROC: (CPT 43239; principal; 2018-06-14 12:45)
DX: R93.5 Abnormal findings on diagnostic imaging of other abdominal regions, including retroperitoneum (principal); R19.7 Diarrhea, unspecified; K57.30 Diverticulosis of large intestine without perforation or abscess without bleeding; R10.84 Generalized abdominal pain; R11.2 Nausea with vomiting, unspecified; K31.89 Other diseases of stomach and duodenum; K29.00 Acute gastritis without bleeding; K21.9 Gastro-esophageal reflux disease without esophagitis
CPT/HCPCS: 43239; 45380; 88305

== ENCOUNTER 2018-07-12 09:20 | Outpatient (CLI) | payer OTHER, SELFPAY ==
[2018-07-12 11:22] LABS: TSH 1.41 uIU/mL (0.358-3.74)
== END 2018-07-12 09:40 ==
PROVIDERS: PCP Emergency Medicine; Visit Provider Emergency Medicine
DX: E03.9 Hypothyroidism, unspecified (principal)
CPT/HCPCS: 36415; 84443

== ENCOUNTER 2019-02-15 09:38 | Outpatient (CLI) | payer OTHER, SELFPAY ==
[2019-02-15 12:43] LABS: ALT 45 U/L (12-78); AST 24 U/L (15-37); Albumin 3.5 g/dL (3.4-5.0); Alkaline Phosphatase 116 U/L (46-116); Anion Gap 10.2 mmol/L (3-11); BUN 13 mg/dL (7-18); Bilirubin, Total 0.4 mg/dL (0.2-1.0); CO2 26.8 mmol/L (21.0-32.0); CREATININE 1.17 mg/dL (0.55-1.02); Chloride 108 mmol/L (98-107); Estimated GFR 47.51 (mL/min/1.73m2); Glucose 133 mg/dL (70-100); Potassium 4.2 mmol/L (3.5-5.1); Sodium 145 mmol/L (136-145); Total Protein 6.8 g/dL (6.4-8.2)
[2019-02-16 06:53] LABS: Vitamin D 25 Total 17.4 ng/ml (30-100)
== END 2019-02-15 09:58 ==
PROVIDERS: PCP Emergency Medicine; Visit Provider Internal Medicine
DX: E55.9 Vitamin D deficiency, unspecified (principal); I10 Essential (primary) hypertension
CPT/HCPCS: 36415; 80053; 82306

== ENCOUNTER 2019-03-22 07:07 | Day surgery (SDC) | payer OTHER, SELFPAY ==
[2019-03-22] VITALS (10 sets, daily range): BP systolic 131–192; BP diastolic 65–106; PULSE 64–82; RESP 11–18; TEMP 36.6–37.2; O2SAT 94–99
--- NOTE | 2019-03-22 06:38 | W.PM.OP ---
Date of service: 03/22/19 Time of Service: 09:37 Operative Note DATE OF PROCEDURE: 03/22/19 PRE-OP DIAGNOSIS: LLE skin lesion POST-OP DIAGNOSIS: same PROCEDURE: Excision of LLE skin lesion with Z-plasty closure SURGEON: Ivania Hedrick COOKER PROCESS CHEESE: Kelsi Clement ANESTHESIA: MAC (LMA) and local ESTIMATED BLOOD LOSS: 10 PATHOLOGY: other (skin lesion suture superior) COMPLICATIONS: None Patient was transported to: same day Patient's condition: stable Indications: Mrs. Chou is a pleasant 58 year old female whom I saw in the office for removal of a skin lesion. The lesion is a good size and is right next to her knee. Risks, benefits, complications were reviewed with her in the office and again in same-day surgery. Questions were entertained and answered to her satisfaction and she wished to proceed. No guarantees were given or implied. Findings: 1 x 1.5 cm raised lesion of the LLE Excision site was 3 x 6 cm Procedure Description: After informed consent was obtained and her left lower extremity lesion was marked in same-day surgery, Mrs. Gonzalez was taken back to the operating room and placed in the supine position on the operating room table. Monitors were applied and she was placed under a general anesthetic with LMA. At this point a timeout was done. The patient's name, date of , allergies to medications, antibiotic given, DVT prophylaxis, procedure type and site were reviewed. Fire risk was assessed. Next a stockinette was applied to her left foot and her leg was elevated. The leg was circumferentially prepped with iodine and then draped in a sterile surgical fashion. The lesion was again inspected and measured to 1 x 1.5 cm. An elliptical kiana was placed around the lesion measuring 3 x 6 cm. The area was then infiltrated with half percent Marcaine with epi mixed with 1% lidocaine. Approximately 20 cc of total local was used. An incision was then made along the previously marked line with a 10 blade down to the subcutaneous tissue. Cautery was used to stop any bleeding and dissect the subcutaneous tissue down to the fascia. The lesion was removed from the operating area and marked with a 2-0 Vicryl in the superior edge. The wound was inspected and some bleeding was noted which was stopped using cautery. The wound edges were then pulled together and a lot of tension was noted. Flaps were created circumferentially and then the edges were again pulled together and there was still a lot of tension. More local was then injected inferiorly and superiorly in a straight line in a Z pattern. An incision was then made into the skin with a 10 blade. Dissection was done with cautery down to the fascia through the subcutaneous tissue. Triangular flaps were created on both ends of the incision. The flaps were then slightly rotated and the skin was loosely re-approximated with shira. Interrupted 4-0 Prolene vertical mattress sutures were used to close the entire incision. The shira were removed. The leg was grabbed and bent to make sure that the incision did not open up. At this point the skin was cleaned and dried. A Xeroform dressing was applied to the incision this was covered with 4 x 4's and held in place with Kerlix. Cold band was then used to hold the Kerlix in place. The drapes were removed and the patient was woken up, the LMA was removed and she was taken back to recovery in stable condition. Suture, instrument and needle counts were correct at the end of the case. There were no immediate complications.
--- NOTE | 2019-03-22 06:41 | W.PM.DSUDISC ---
Discharge Plan Disposition Patient Disposition: HOME Condition: Good Discharge Details Reason For Visit: Skin lesion Attending Provider: Ivania Hedrick Primary Care Provider: Benny Woods Home Meds and New Rx's Prescriptions: New ibuprofen 600 mg tablet 600 mg PO Q6H PRN (Reason: pain) Qty: 60 RF: 0 acetaminophen [Tylenol] 325 mg tablet 650 mg PO Q6H PRN (Reason: pain) Qty: 30 RF: 0 Continued ranitidine HCl [Zantac] 150 mg tablet 150 mg PO DAILY PRNRF: 0 sumatriptan succinate [Imitrex] 50 mg tablet 50 mg PO ONCE PRNRF: 0 ondansetron 4 mg tablet,disintegrating 4 mg PO QID PRN (Reason: nausea and vomiting) Qty: 14 RF: 0 lisinopril 20 mg tablet 20 mg PO DAILY Qty: 90 RF: 3 cholecalciferol (vitamin D3) 1,000 UNIT tablet 1,000 unit PO DAILY Qty: 90 RF: 3 duloxetine [Cymbalta] 60 MG capsule,delayed release(DR/EC) 60 mg PO DAILY Qty: 90 RF: 3 quetiapine 100 MG tablet 100 mg PO HS RF: 0 lamotrigine 100 MG tablet 100 mg PO DAILY RF: 0 levothyroxine [Synthroid] 100 mcg tablet 100 mcg PO DAILY Qty: 90 RF: 3 omeprazole 20 mg capsule,delayed release(DR/EC) 20 mg PO DAILY Qty: 90 RF: 4 cholecalciferol (vitamin D3) 50,000 unit capsule 50,000 unit PO QWEEK Qty: 8 RF: 0 clonazepam 1 mg tablet 1 mg PO HS Qty: 60 RF: 1 Discontinued ibuprofen 800 mg tablet See Rx Instructions PO ONCE PRNRF: 0 Discharge Instructions Instructions: Care For Your Stitches (ED) Additional Instructions: Activity at Home after surgery: 1. Make sure you walk outside at least 4 times per day 2. You should be able to climb a flight of stairs 3. No driving while in pain or taking pain medications Diet, Nutrition, & wound healin. Avoid alcohol until after you are recovered from your surgery 2. Make sure to eat plenty of lean protein (meat, fish, eggs, cottage cheese, beans) 3. Eat a variety of fruits and vegetables. Eat plenty of high fiber foods to avoid constipation. 4. Drink plenty of liquids to stay hydrated and avoid constipation Pain Medications: 1. Alternate Tylenol 650 mg and Ibuprofen 600 mg every 3 hours 2. If a narcotic has been prescribed take as directed only for breakthrough pain For Constipation: 1. Take Milk of Magnesia or MiraLax as needed for constipation Other: 1. You may shower on 03/24/19. Do not scrub the incisions 2. Do not soak the incisions for 1 week 3. You may alternate ice and heat as needed for pain and swelling 4. Leave dressing on for 48 hours. May remove the dressing in 48 hours and then leave open to air Wound Care: 1. Keep the incisions clean and dry Please call our office if you develop: 1. Fevers >101.5 2. Nausea or Vomiting 3. Worsening pain 4. Redness and thick discharge from the wounds If after hours please call the Hospital at and ask to speak to the on-call surgeon Referrals: Ivania Hedrick MD [ [facility] STAFF PHYSICIAN] - 04/07/19 Activity:: NO strenuous activity for 2 weeks Diet:: As Tolerated Discharge Orders Discharge Orders: Discharge Order (Routine); Ordered 03/22/19 Ordered By: Ivania Hedrick DS: Diagnosis Discharge Diagnosis (1) Skin lesion: Status: Chronic (2) H/O excision of mass:
[2019-03-22] MEDS: Lactated Ringers 1,000 ML 80 ML IV (07:50)
[2019-03-22] MEDS: ceFAZolin 2 GM/50 ML BAG IVPB (08:55)
[2019-03-22] MEDS: Lidocaine 1% Multi-Dose 50 ML VIAL (09:00)
--- NOTE | 2019-03-22 09:03 | SKI_PTH ---
PATIENT: Delphine Chou V LOC: LUCIO U#:[id number] AGE/SX: 58/F ROOM: RE03/22/[address]: Ivania Hedrick MD : 1960 BED: DIS: 03/22/2019 SPEC #: [id number] RECD: 03/22/19 12:50 STATUS: ERNST REQ #: [id number] NUNO: 03/22/19 09:[address]: Ivania Hedrick DEPT: Surgical Specimen RECD BY: Keena Shahid ENTERED: 03/22/19 12:52 SP TYPE: RYNE PHILLIPS DR: Benny Woods DO Tissues: 1 - SKIN BIOPSY(SHAVE/PUNCH) Procedures: SKIN LEVEL 4 Comments: [id number]
[2019-03-22] MEDS: Acetaminophen 500 MG TAB 1000 MG PO (10:56)
== END 2019-03-22 11:40 | disposition home or self-care (01) ==
PROVIDERS: PCP Emergency Medicine; Visit Provider Surgery
PROC: (CPT 11606; principal; 2019-03-22 08:45)
DX: C44.719 Basal cell carcinoma of skin of left lower limb, including hip (principal)
CPT/HCPCS: 11606; 88305; J0690; J1100; J1885; J2250; J2405; J3010

== ENCOUNTER 2019-05-17 09:33 | Outpatient (REF) | payer OTHER, SELFPAY ==
--- NOTE | 2019-05-17 09:00 | PAPFT_PTH ---
PATIENT: Delphine Chou V LOC: SKY U#:[id number] AGE/SX: 58/F ROOM: RE05/17/[address]: Yany Monroy NP : 1960 BED: DIS: 05/17/2019 SPEC #: [id number] RECD: 05/17/19 12:55 STATUS: ERNTS REThiago #: [id number] NUNO: 05/17/19 09:[address]: Yany Monroy NP DEPT: [facility] Cytology RECD BY: Keena Shahid ENTERED: 05/17/19 12:55 SP TYPE: PAPFT ALAN DR: Benny Woods, DO Tissues: 1 - CX/ENDOCX FOR PAP SMEARS Procedures: PAP THIN PREP/UVM Screening HPV DNA PROBE Comments: [id number]
== END 2019-05-17 09:53 ==
LOC: LBN 09:33
PROVIDERS: PCP Emergency Medicine; Visit Provider Nurse Practitioner Women's Health
DX: Z12.4 Encounter for screening for malignant neoplasm of cervix (principal); Z11.51 Encounter for screening for human papillomavirus (HPV)
CPT/HCPCS: 88142; 87624

== ENCOUNTER 2020-05-17 11:02 | Outpatient (REF) | payer OTHER, SELFPAY ==
[2020-05-17 13:49] LABS: Anion Gap 10.2 mmol/L (3-11); BUN 17 mg/dL (7-18); CO2 28.8 mmol/L (21.0-32.0); CREATININE 1.37 mg/dL (0.55-1.02); Calcium 9.1 mg/dL (8.5-10.1); Calculated LDL 119 mg/dL (<100); Chloride 105 mmol/L (98-107); Cholesterol 194 mg/dL (<200); Estimated GFR 39.46 (mL/min/1.73m2); Glucose 205 mg/dL (74-106); HDL Cholesterol 50 mg/dL (40-60); Sodium 144 mmol/L (136-145); TSH 2.41 uIU/mL (0.36-3.74); Triglyceride 125 mg/dL (<150)
== END 2020-05-17 11:22 ==
LOC: LBN 11:02
PROVIDERS: PCP Nurse Practitioner Family; Visit Provider Emergency Medicine
DX: I10 Essential (primary) hypertension (principal); E11.9 Type 2 diabetes mellitus without complications; E03.9 Hypothyroidism, unspecified
CPT/HCPCS: 80048; 80061; 83036; 84443

== ENCOUNTER 2020-07-08 01:12 | Outpatient (CLI) | payer OTHER, SELFPAY ==
--- NOTE | 2020-07-08 06:30 | DI.MAMMO_ITS ---
EXAM: MG MAMMO SCREENING CLINICAL HISTORY: screening. TECHNIQUE: Bilateral full field digital CC and MLO mammographic images were obtained with 3D tomosyn thesis and utilizing computer aided detection (CAD). COMPARISON: None FINDINGS: Towards the lateral aspect of the left breast there is a suggestion of a new noncalcified nodular den sity measuring approximately 8 x 4 millimeters and located 10 centimetres in from the nipple. Spot c ompression view recommended. In the opposite-right breast there is a noncalcified well-defined nodule located inferiorly which bakari sures 5 x 4 millimeters, approximately 6 centimetres in from the nipple on 3D imaging.. No malignant -appearing microcalcification groups evident in this region nor elsewhere in either breast. There is a biopsy marker clip noted posteromedially in the right breast adjacent to a benign-appearing nodule . There is no new architectural distortion nor skin thickening-retraction. IMPRESSION: Bilateral nodular densities. Spot compression views and bilateral breast ultrasound examination are recommended BI-RADS Category 0 - Assessment Incomplete: Need additional imaging evaluation Breast Density - Category B - Scattered areas of fibroglandular density Breast density Category C or D implies that the patient has dense breast tissue. Dense breast tissue can make it harder to find cancer on a mammogram. Dense breast tissue is also associated with an incr eased risk of breast cancer. This information about the result of the mammogram report was provided to the patient to raise their awareness. Use this report when you speak with the patient about their risks for breast cancer, which includes their family history. At that time, you may recommend additional screening tests (Ultrasoun d or MRI) as these tests may add significant information. A negative radiographic report should not delay biopsy if a dominant or clinically suspicious mass is present. Up to ten percent of cancers are not identified on mammography. A negative report may reinforce clinical impression. Adenosis and dense breasts may obscure an underlying neoplasm. False positive reports average 6 to 10%. Patient will receive a letter notifying them of these results.
== END 2020-07-08 01:32 ==
PROVIDERS: PCP Nurse Practitioner Family; Visit Provider Emergency Medicine
DX: Z12.31 Encounter for screening mammogram for malignant neoplasm of breast (principal); R92.8 Other abnormal and inconclusive findings on diagnostic imaging of breast
CPT/HCPCS: 77063; 77067

== ENCOUNTER 2020-07-18 00:32 | Outpatient (CLI) | payer OTHER, SELFPAY ==
--- NOTE | 2020-07-18 | DI.US_ITS ---
EXAM: US BREAST RT LIMITED CLINICAL HISTORY: F/U MAMMO, LT DENSITY, RT NODULE TECHNIQUE: Ultrasound right breast performed using standard protocol. COMPARISON: US RENAL ULTRASOUND(P) {[id number]} from 01/17/2015 mammogram was reviewed FINDINGS: There is a 3 millimeter microcysts at the 9 o'clock position. No other focal ultrasound findings in the right breast. IMPRESSION: Solitary benign 3 3 millimeter microcysts 3 o'clock position. No solid lesions seen. BI-RADS Category 2 - Benign Findings DATA REPOSITORY:
--- NOTE | 2020-07-18 | DI.US_ITS ---
EXAM: US BREAST LT LIMITED CLINICAL HISTORY: F/U MAMMO, LT DENSITY, RT NODULE TECHNIQUE: Ultrasound right breast performed using standard protocol. Additional spot mammographic view left breast performed 3D. COMPARISON: Prior screening mammogram was reviewed. FINDINGS: Additional spot compression 3D mammogram view does reveal a nodular density at 3 o'clock position. Left breast performed following this mammogram today does reveal a finding at 3 o'clock position judie esponding to this nodule. 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 Exhibits neutral through transmis jessica. IMPRESSION: 3 o'clock position finding as described above, probably benign and correspond to the finding on the m ammogram. Appropriate follow-up is repeat left breast imaging in 6 months, to include repeat left justin mogram and ultrasound. BI-RADS Category 3 - 6 month - Probably Benign Finding: Recommend follow-up mammography and ultrasoun d in 6 months DATA REPOSITORY:
--- NOTE | 2020-07-18 13:46 | DI.MAMMO_ITS ---
EXAM: MG MAMMO SCREEN CALL BACK BI CLINICAL HISTORY: F/U MAMMO, SUGGESTION LT BREAST NODULAR DENSITY,RT BREAST NODULE. TECHNIQUE: Bilateral breast ultrasound COMPARISON: Prior mammograms reviewed FINDINGS: At the 3 o'clock position of the left breast there is a 9 by 5 millimeter wider than taller benign-ap pearing finding which has appearance of a septated cyst, this correspond to the finding on the mammog walter. No other focal ultrasound findings in the left breast. No significant axillary adenopathy IMPRESSION: Benign-appearing septated microcyst at 3 o'clock position left breast. Incorrectly marked 9 o'clock position on the images)) Appropriate follow-up is repeat left breast mammogram in 6 months. BI-RADS Category 3 - 6 month - Probably Benign Finding: Recommend follow-up mammography in 6 months Breast Density - Category C - Heterogeneously dense Breast density Category C or D implies that the patient has dense breast tissue. Dense breast tissue can make it harder to find cancer on a mammogram. Dense breast tissue is also associated with an incr eased risk of breast cancer. This information about the result of the mammogram report was provided to the patient to raise their awareness. Use this report when you speak with the patient about their risks for breast cancer, which includes their family history. At that time, you may recommend additional screening tests (Ultrasoun d or MRI) as these tests may add significant information. A negative radiographic report should not delay biopsy if a dominant or clinically suspicious mass is present. Up to ten percent of cancers are not identified on mammography. A negative report may reinforce clinical impression. Adenosis and dense breasts may obscure an underlying neoplasm. False positive reports average 6 to 10%. Patient will receive a letter notifying them of these results.
== END 2020-07-18 00:52 ==
PROVIDERS: PCP Nurse Practitioner Family; Visit Provider Emergency Medicine
DX: R92.8 Other abnormal and inconclusive findings on diagnostic imaging of breast (principal); N60.02 Solitary cyst of left breast; N60.01 Solitary cyst of right breast
CPT/HCPCS: 76642; 77063; 77067

== ENCOUNTER 2020-07-31 12:37 | Outpatient (CLI) | payer OTHER, SELFPAY ==
--- NOTE | 2020-07-31 12:00 | DI.RAD_ITS ---
EXAM: XR FOOT LT COMPLETE CLINICAL HISTORY: Trauma to left lateral foot with discoloration/swe S99.922A INJURY TECHNIQUE: COMPARISON: CR LEFT FOOT COMPLETE from 12/02/2009 FINDINGS: Three views were obtained. Bony alignment appears within normal limits. No evidence of acute fractu re or dislocation. IMPRESSION: RADIATION DOSE DELIVERED: Total DLP
== END 2020-07-31 12:57 ==
PROVIDERS: PCP Emergency Medicine; Visit Provider Nurse Practitioner Family
DX: S99.822A Other specified injuries of left foot, initial encounter (principal); R23.8 Other skin changes; R60.0 Localized edema
CPT/HCPCS: 73630

== ENCOUNTER 2020-10-10 03:54 | Outpatient (CLI) | payer OTHER, SELFPAY ==
--- NOTE | 2020-10-10 14:00 | NS.NUTBLAN_ITS ---
Delphine was referred for medical nutrition therapy for newly diagnosed DM2. She was recently started on metformin 750 mg/dl qd, which she tolerates. She reports losing about 7 lbs in last month. BMI 32. Most recent A1c 7% (05/17/21). random finger stick today: 119 mg/dl. She has an active job, working at a [employer] 4 days per week. Session today focused on how to use glucometer and optimal blood sugar ranges. Reviewed technique to capture optimal blood sample. Reviewed carbohydrate counting and encouraged her to follow [id number] kcal diet, with 80-100 g carbohydrate, 60-80 g prot, 45-55 g fat which should lead to moderate weight loss. Reviewed menu ideas that incorporate complex carbs, lean protein and non starchy vegetables. Encourage daily exercise of 20 minutes. Goal is to have optimal glycemic control with 10% weight loss to help increase insulin sensitivity. Delphine was engaged during education. Plan: recommended that Delphine keep a blood sugar log and bring to next MD appt Delphine did not want to make a follow up appt. today Delphine to follow up with proposal lead writer if needs continued diabetes education
== END 2020-10-10 03:55 | disposition home or self-care (01) ==
LOC: DS 03:54
PROVIDERS: PCP Emergency Medicine; Visit Provider Dietitian, Registered
DX: E11.9 Type 2 diabetes mellitus without complications (principal); Z71.3 Dietary counseling and surveillance
CPT/HCPCS: 97802

== ENCOUNTER 2020-12-18 10:27 | Outpatient (CLI) | payer OTHER, SELFPAY ==
[2020-12-18 13:06] LABS: Anion Gap 8.9 mmol/L (3-11); BUN 16 mg/dL (7-18); CO2 29.1 mmol/L (21.0-32.0); CREATININE 1.5 mg/dL (0.55-1.02); Calcium 9.5 mg/dL (8.5-10.1); Chloride 109 mmol/L (98-107); Estimated GFR 35.42 (mL/min/1.73m2); Glucose 115 mg/dL (74-106); Potassium 4.4 mmol/L (3.5-5.1); Sodium 147 mmol/L (136-145); TSH 1.84 uIU/mL (0.36-3.74)
[2020-12-18 14:35] LABS: Hemoglobin A1C 5.7 % (<5.7)
== END 2020-12-18 10:28 | disposition home or self-care (01) ==
LOC: LOS 10:27
PROVIDERS: PCP Emergency Medicine; Visit Provider Emergency Medicine
DX: I10 Essential (primary) hypertension (principal); E11.9 Type 2 diabetes mellitus without complications; E03.9 Hypothyroidism, unspecified
CPT/HCPCS: 36415; 80048; 83036; 84443

== ENCOUNTER → 2021-03-05 02:25 | Outpatient (CLI) | payer OTHER, SELFPAY ==
--- NOTE | 2021-03-05 07:00 | DI.MAMMO_ITS ---
Exam(s) MG MAMMO DIAGNOSTIC UNI EXAM: MAMMO DIAGNOSTIC UNI -LEFT CLINICAL HISTORY: 3-6 MO F/U, F/U ABNL MAMMO, R92.8,INCONCLUSIVE MAMMO, Z09. TECHNIQUE: Unilateral spot mammographic images were obtained with 3D Tomosynthesistechnique and util izing computer aided detection (CAD). COMPARISON: Prior mammograms were reviewed, most recent being july 2020 FINDINGS: Patient has now returned for repeat left breast mammogram and spot views. The previously described nodular density towards the lateral aspect of the left breast is still evide nt on the mammogram. It does not appear to have appreciably changed. Repeat left breast ultrasound is required. Unfortunately I am informed by the technologist at this [facility] was not scheduled for this ultrasound and there are unfortunately not able to fit her in for [facility] breast ultrasound today because of a very tight schedule. Final report will follow when the ultrasound is performed. Apparently she was given an appointment in the near future prior to leaving the department today. IMPRESSION: Stable mammographic finding but final report will follow when the ultrasound is performed. Apparently this was not able to be performed today. The patient was informed of the findings and follow-up recommendations prior to leaving the departmen t today. BI-RADS Category 0 - Assessment Incomplete: Need additional imaging evaluation Breast Density - Category C - Heterogeneously dense Breast density Category C or D implies that the patient has dense breast tissue. Dense breast tissue can make it harder to find cancer on a mammogram. Dense breast tissue is also associated with an incr eased risk of breast cancer. This information about the result of the mammogram report was provided to the patient to raise their awareness. Use this report when you speak with the patient about their risks for breast cancer, which includes their family history. At that time, you may recommend additional screening tests (Ultrasoun d or MRI) as these tests may add significant information. A negative radiographic report should not delay biopsy if a dominant or clinically suspicious mass is present. Up to ten percent of cancers are not identified on mammography. A negative report may reinforce clinical impression. Adenosis and dense breasts may obscure an underlying neoplasm. False positive reports average 6 to 10%. Patient will receive a letter notifying them of these results.
== END ==
PROVIDERS: PCP Emergency Medicine; Visit Provider Emergency Medicine
DX: Z09 Encounter for follow-up examination after completed treatment for conditions other than malignant neoplasm; R92.8 Other abnormal and inconclusive findings on diagnostic imaging of breast; R92.2 Inconclusive mammogram
CPT/HCPCS: 77061; 77065; G0279

== ENCOUNTER 2021-04-08 10:19 | Emergency (ER) | payer OTHER, SELFPAY ==
--- NOTE | 2021-04-08 10:15 | DI.CT_ITS ---
Exam(s) CT RENAL COLIC WO EXAM: CT RENAL COLIC WO CLINICAL HISTORY: Left side abd pain, hematuria, Hx kidney stones. TECHNIQUE: Imaging Protocol: Axial computed tomography images with coronal and sagittal reformatted images were created and reviewed. CONTRAST MATERIAL: Noncontrast COMPARISON: CT CT ABDOMEN PELVIS WO from 05/20/2018 FINDINGS: ABDOMEN: Lung Bases: Normal where visualized. Liver: Normal attenuation. No measurable mass. Gallbladder and biliary tract: Status post cholecystectomy. No radiodense calculus or dilation. Pancreas: Normal density, no calcifications or inflammatory process. Spleen: Normal. Kidneys: Normal size, contour and axis. No radiodense stones or obstructive uropathy. Stable cyst mi d pole left kidney no masses seen. Adrenal glands: No masses seen. Abdominal Aorta: Abdominal portion non-dilated. PELVIS: Bladder: Symmetric distention, no gross wall thickening. Bowel: No obstruction or bowel wall thickening. Normal appendix. Diverticulosis descending and sigm oid. No evidence of diverticulitis. Increased stool. Peritoneal cavity: No ascites, collection or mesenteric inflammatory response. Soft tissues: Bilateral fatty containing inguinal hernias, stable. Reproductive: Retroverted uterus with question of small fibroids. Bones: Mild degenerative changes. IMPRESSION: No evidence of urinary tract calculi, hydronephrosis or other acute abnormality. RADIATION DOSE DELIVERED: 1,058.29mGy.cm Total DLP DATA REPOSITORY: All CT scans at this facility are submitted to the National Radiology Data Registry (NRDR) Dose Index Registry (DIR) with the [employer] (ACR). RADIATION OPTIMIZATION: All CT scans at this facility use at least one of these dose optimization te chniques: automated exposure control; mA and/or kV adjustment per patient size (includes targeted exa ms where dose is matched to clinical indication); or iterative reconstruction.
[2021-04-08 10:25] VITALS: BP 135/70; PULSE 89; RESP 14; TEMP 36.7; O2SAT 98
--- NOTE | 2021-04-08 10:35 | W.ED.GENAD ---
Discharge Plan Disposition Patient Disposition: HOME Condition: Stable Discharge Details Clinical Impression: UTI (urinary tract infection), Diverticulosis Primary Care Provider: Benny Woods ED Provider: Debra Haile Home Meds and New Rx's Prescriptions: New nitrofurantoin macrocrystal 100 mg capsule 100 mg PO BID 7 Days Qty: 14 RF: 0 No Action sumatriptan succinate [Imitrex] 50 mg tablet 50 mg PO ONCE PRNRF: 0 lisinopril 30 mg tablet 30 mg PO DAILY Qty: 90 RF: 4 omeprazole 20 mg capsule,delayed release(DR/EC) 20 mg PO DAILY PRNRF: 0 amlodipine 10 mg tablet 10 mg PO DAILY Qty: 90 RF: 3 (DME) blood-glucose meter [[employer] WideTouch Ultra2 Meter] Kit See Rx Instructions .ROUTE .MEDSUPPLY Qty: 1 RF: 0 duloxetine [Cymbalta] 60 MG capsule,delayed release(DR/EC) 60 mg PO DAILY Qty: 90 RF: 3 quetiapine 100 MG tablet 100 mg PO HS RF: 0 cholecalciferol (vitamin D3) 25 mcg (1,000 unit) tablet 2,000 unit PO DAILY Qty: 90 RF: 3 lamotrigine 100 mg tablet 100 mg PO DAILY Qty: 90 RF: 3 (DME) OneTouch Ultra Blue Test Strip Strip See Rx Instructions .ROUTE .MEDSUPPLY Qty: 100 RF: 5 (DME) lancets [OneTouch UltraSoft Lancets] Misc See Rx Instructions .ROUTE .MEDSUPPLY Qty: 100 RF: 4 clonazepam 1 mg tablet 1 mg PO HS Qty: 90 RF: 1 levothyroxine [Synthroid] 100 mcg tablet 100 mcg PO DAILY Qty: 90 RF: 3 ibuprofen 600 mg tablet 600 mg PO Q6H PRN (Reason: pain) Qty: 60 RF: 0 acetaminophen [Tylenol] 325 mg tablet 650 mg PO Q6H PRN (Reason: pain) Qty: 30 RF: 0 Discharge Instructions Instructions: Urinary Tract Infection in Women (ED), Abdominal Pain (ED) Additional Instructions: The CT today shows no evidence for kidney stone at this time. You do have a urinary tract infection we will give you antibiotics Macrobid twice daily x7 days. Follow up with primary care provider in 3-5 days. Return to ED sooner if any worsening or concerns. Increase oral fluids. Please take Tylenol or Ibuprofen with food every 4-6 hours as needed for pain and swelling. Referrals: Benny Woods DO [Primary Care Provider] - Medical Decision Making 60-year-old female presents to the ER after being seen by primary care provider today with chief complaint of some left lower quadrant abdominal pain which has been ongoing for 2 days. Patient states it originated her left flank and is now pinpoint left lower pelvis. She describes it as intermittent sharp pain associated with nausea no vomiting no diarrhea no fever. She also reports some urinary frequency and hesitancy. Urine dip done prior to arrival showed positive for moderate blood and leukocytes. Has been taking Tylenol at home with little to no relief. Does have a history of an oophorectomy on the left side and kidney stones with stone retrieval. Urinalysis shows moderate leukocytes small blood 5-10 RBCs greater than 50 WBCs culture is pending at this time. Back a blood cell count slightly elevated at 13.63 BUN 22 creatinine 1.4 GFR 38 is at patient's baseline. CT RENAL COLIC WO EXAM: CT RENAL COLIC WO CLINICAL HISTORY: Left side abd pain, hematuria, Hx kidney stones. TECHNIQUE: Imaging Protocol: Axial computed tomography images with coronal and sagittal reformatted images were created and reviewed. CONTRAST MATERIAL: Noncontrast COMPARISON: CT CT ABDOMEN PELVIS WO from 05/20/2018 FINDINGS: ABDOMEN: Lung Bases: Normal where visualized. Liver: Normal attenuation. No measurable mass. Gallbladder and biliary tract: Status post cholecystectomy. No radiodense calculus or dilation. Pancreas: Normal density, no calcifications or inflammatory process. Spleen: Normal. Kidneys: Normal size, contour and axis. No radiodense stones or obstructive uropathy. Stable cyst mid pole left kidney no masses seen. Adrenal glands: No masses seen. Abdominal Aorta: Abdominal portion non-dilated. PELVIS: Bladder: Symmetric distention, no gross wall thickening. Bowel: No obstruction or bowel wall thickening. Normal appendix. Diverticulosis descending and sigmoid. No evidence of diverticulitis. Increased stool. Peritoneal cavity: No ascites, collection or mesenteric inflammatory response. Soft tissues: Bilateral fatty containing inguinal hernias, stable. Reproductive: Retroverted uterus with question of small fibroids. Bones: Mild degenerative changes. IMPRESSION: No evidence of urinary tract calculi, hydronephrosis or other acute abnormality. Discussed CT results with patient who verbalized understanding. Discussed follow-up with PCP. Patient was given Macrobid for UTI. HPI General Mode of arrival: ambulatory. Date/Time Provider Initiated Documentation: 04/08/21 10:20. Limitations to Documentation: no limitations. Information obtained by: patient and RN notes reviewed. HPI Narrative: 60-year-old female presents to the ER after being seen by primary care provider today with chief complaint of some left lower quadrant abdominal pain which has been ongoing for 2 days. Patient states it originated her left flank and is now pinpoint left lower pelvis. She describes it as intermittent sharp pain associated with nausea no vomiting no diarrhea no fever. She also reports some urinary frequency and hesitancy. Urine dip done prior to arrival showed positive for moderate blood and leukocytes. Has been taking Tylenol at home with little to no relief. Does have a history of an oophorectomy on the left side and kidney stones with stone retrieval. Related Data Home Medications Medication Instructions Recorded Confirmed duloxetine [Cymbalta] 60 mg PO DAILY #90 tab-cap 09/04/16 04/08/21 quetiapine 100 mg PO HS 01/12/18 04/08/21 sumatriptan succinate 50 mg tablet 50 mg PO ONCE PRN tab 03/10/19 04/08/21 acetaminophen [Tylenol] 650 mg PO Q6H PRN #30 tab 03/22/19 04/08/21 ibuprofen 600 mg PO Q6H PRN #60 tab 03/22/19 04/08/21 cholecalciferol (vitamin D3) 25 2,000 unit PO DAILY #90 tab 10/13/19 04/08/21 mcg (1,000 unit) tablet lamotrigine 100 mg tablet 100 mg PO DAILY #90 tab-cap 01/09/20 04/08/21 lisinopril 30 mg tablet 30 mg PO DAILY #90 tab 04/15/20 04/08/21 amlodipine 10 mg tablet 10 mg PO DAILY #90 tab 05/17/20 04/08/21 omeprazole 20 mg capsule,delayed 20 mg PO DAILY PRN cap 05/17/20 04/08/21 release blood sugar diagnostic #100 ea 10/02/20 04/08/21 blood-glucose meter #1 ea 10/02/20 04/08/21 lancets #100 ea 10/04/20 04/08/21 clonazepam 1 mg tablet 1 mg PO HS #90 tab 10/16/20 04/08/21 levothyroxine 100 mcg tablet 100 mcg PO DAILY #90 tab-cap 03/18/21 04/08/21 nitrofurantoin macrocrystal 100 mg PO BID 7 Days #14 cap 04/08/21 Previous Rx's Medication Instructions Recorded acetaminophen [Tylenol] 650 mg PO Q6H PRN #30 tab 03/22/19 ibuprofen 600 mg PO Q6H PRN #60 tab 03/22/19 lamotrigine 100 mg tablet 100 mg PO DAILY #90 tab-cap 01/09/20 lisinopril 30 mg tablet 30 mg PO DAILY #90 tab 04/15/20 amlodipine 10 mg tablet 10 mg PO DAILY #90 tab 05/17/20 blood sugar diagnostic #100 ea 10/02/20 blood-glucose meter #1 ea 10/02/20 lancets #100 ea 10/04/20 clonazepam 1 mg tablet 1 mg PO HS #90 tab 10/16/20 levothyroxine 100 mcg tablet 100 mcg PO DAILY #90 tab-cap 03/18/21 nitrofurantoin macrocrystal 100 mg PO BID 7 Days #14 cap 04/08/21 Allergies Allergy/AdvReac Type Severity Reaction Status Date / Time lactose AdvReac Intermediate Diarrhea Verified 04/08/21 10:34 ziprasidone HCl [From Geodon] AdvReac Intermediate leg pain, Verified 04/08/21 10:34 couldn't sit still ziprasidone mesylate AdvReac Intermediate leg pain, Verified 04/08/21 10:34 [From Geodon] couldn't sit still amoxicillin [Amoxicillin] AdvReac GI upset Verified 04/08/21 10:34 Metronidazole HCl AdvReac GI UPSET Verified 04/08/21 10:34 [From Flagyl] General Stated Complaint: Urinary MAYRA: 3 Review of Systems Narrative: Constitutional: Negative for weight loss, alert and oriented, well groomed, normal body habitus, appears comfortable. HEENT: Denies trauma, headaches, blurry vision, nasal discharge, sore throat, trouble swallowing. Chest: Denies chest pain, palpitations, irregular rhythm, hypertension. Respiratory: Denies Shortness of breath, cough, hemoptysis. GI: Denies vomiting, diarrhea, constipation. Positive abdominal pain and nausea. : Deniesrectal bleeding. Positive urinary frequency hesitancy positive hematuria. history of kidney stones. Neuro: Denies dizziness, blurry vision, weakness, syncope, headache or facial numbness. Hematologic: Denies easy bruising, intolerance to heat or cold, hair loss. [facility] Medical History Depression Fibromyalgia Gastritis History of basal cell cancer Hypothyroidism Left shoulder pain Plantar fascia syndrome PTSD (post-traumatic stress disorder) Surgical History Biopsy of breast Cholecystectomy Cystoscopy H/O colonoscopy (06/14/18) dr escamilla, no abnormalities, repeat in ten years H/O excision of mass (~03/22/19) Skin lesion excision on the LLE History of esophagogastroduodenoscopy (EGD) (06/14/18) dr escamilla, mild gastropathy Oophrectomy, Left (~04/2012) [facility] Family History Mother Breast cancer Hyperlipidemia Hypertension Thyroid disease History of venous thromboembolism Paternal Grandmother Breast cancer Social History Smoking/Tobacco Use Status: Never Smoking risk assessment performed?: Yes Alcohol Intake: never Drug use: Never Substance use type: does not use Do you feel safe at home: Yes Do you feel safe in your relationship?: Yes Female Reproductive History Menstrual Menopause type: natural History History 3 Para 3 Hx # Term Pregnancies 3 Multiple births Hx # Pregnancies Ectopic pregnancies AB induced Hx Number of Living Children 3 AB spontaneous Exam Narrative Exam Narrative: Constitutional: Alert and oriented x3. Appears stated age. Normal body habitus. Head: Normocephalic, no trauma. Eyes: Pupils PERRLA, Red reflex noted, EOM's intact. Eyelids symmetrical without lesions, discharge, or swelling. ENT: Bilateral TM's WNL, External ear normal to inspection, no mastoid TTP, swelling, or erythema, Nasal turbinates WNL, no nasal discharge. Normal dentition, Posterior pharynx WNL, no exudate. Chest: RRR, Normal S1, S2, distal pulses intact. Resp: Lungs clear to auscultation bilaterally, no wheezes, rales, or rhonchi. Abdomen: Soft, nondistended tender with palpation left upper quadrant and left lower quadrant. Musculoskeletal: Normal gait, 5/5 strength to all four extremities. Skin: No suspicious rashes or lesions. Capillary refill less than 2 sec. Neurologic: Cranial nerves II-XII intact. Alert and oriented x 3. DTR's intact. Hematologic/Lymphatic: No ecchymosis, no lymphadenopathy. Course Vital Signs Vital signs: Vital Signs Temperature 36.7 C 04/08/21 10:25 Pulse 89 04/08/21 10:25 Respiratory Rate 14 04/08/21 10:25 Blood Pressure 135/70 04/08/21 10:25 Pulse Oximetry 98 04/08/21 10:25 Temperature 36.7 C 04/08/21 10:25 Temperature Source Skin 04/08/21 10:25 Pulse 89 04/08/21 10:25 Respiratory Rate 14 04/08/21 10:25 Respiratory Effort 04/08/21 10:32 Blood Pressure 135/70 04/08/21 10:25 Blood Pressure Position Sitting 04/08/21 10:25 Pulse Oximetry 98 04/08/21 10:25 Oxygen Delivery Method Room Air 04/08/21 10:25 Oxygen Flow Rate 0 04/08/21 10:25 Pain Level 9 04/08/21 10:32
[2021-04-08] MEDS: Ondansetron 4 MG/2 ML VIAL IVP (10:48)
[2021-04-08] MEDS: Normal Saline 1,000 ML 1000 ML IV (10:49)
[2021-04-08] MEDS: Normal Saline Flush 10 ML SYR IVP (10:50)
[2021-04-08 11:28] LABS: Abs Immature Grans 0.05 10^3/uL (0.0-0.06); Absolute Basophil Count 0.07 10^3/uL (0.0-0.2); Absolute Eosinophil Count 0.35 10^3/uL (0.0-0.7); Absolute Monocyte Count 0.45 10^3/uL (0.1-0.8); Basophils % 0.5; Eosinophils % 2.6; HCT 37.7 % (36.0-46.0); HGB 11.9 g/dL (11.2-15.7); Immature Grans % 0.4; Lymphocytes % 15.4; MCHC 31.6 % (32.0-36.0); MPV 9.7 fL (8.0-11.0); Monocytes % 3.3; Neutrophils % 77.8; Nucleated RBC 0 %; Platelet Count 287 10^3/uL (130-400); RBC 3.97 10^6/uL (3.93-5.22); RDW 13.2 % (11.7-14.6); RDW-SD 46.3 fL; WBC 13.63 10^3/uL (4.4-10.8)
[2021-04-08 11:44] LABS: ALT 23 U/L (14-59); AST 14 U/L (15-37); Albumin 3.4 g/dL (3.4-5.0); Alkaline Phosphatase 105 U/L (46-116); Anion Gap 6.4 mmol/L (3-11); BUN 22 mg/dL (7-18); Bilirubin, Total 0.2 mg/dL (0.2-1.0); CO2 29.6 mmol/L (21.0-32.0); CREATININE 1.4 mg/dL (0.55-1.02); Chloride 107 mmol/L (98-107); Estimated GFR 38.36 (mL/min/1.73m2); Glucose 117 mg/dL (74-106); Lipase 97 U/L (73-393); Potassium 4.2 mmol/L (3.5-5.1); Sodium 143 mmol/L (136-145); Total Protein 7.2 g/dL (6.4-8.2)
[2021-04-08 11:48] LABS: Bilirubin Negative (Negative); Blood Small (Negative); Clarity Sl Cloudy (Clear); Glucose Negative (Negative); Ketones Negative (Negative); Leukocyte Esterase Moderate (Negative); Nitrite Negative (Negative); Urobilinogen 0.2 EU/dL (Up TO 0.2); pH 5.5 (5-8)
[2021-04-08 12:02] LABS: Bacteria Many HPF (Negative); C & S Indicated? Yes; Casts Negative LPF (Negative); Crystals Negative HPF (Negative); Epithelial Cells Few HPF (Negative); Mucus Negative (Negative); WBC >50 HPF (0-5)
== END 2021-04-08 12:35 | disposition home or self-care (01) ==
PROVIDERS: Emergency Provider Registered Nurse Emergency; PCP Emergency Medicine
DX: N39.0 Urinary tract infection, site not specified (principal); B96.20 Unspecified Escherichia coli [E. coli] as the cause of diseases classified elsewhere; K57.90 Diverticulosis of intestine, part unspecified, without perforation or abscess without bleeding; Z87.442 Personal history of urinary calculi
CPT/HCPCS: 36415; 80053; 83690; 87077; 96361; 96374; 99284; 74176; 81003; 81015; 85025; 87086; 87186; J2405

== ENCOUNTER 2021-08-02 11:33 | Outpatient (REF) | payer OTHER, SELFPAY | END 2021-08-02 11:34 | disposition home or self-care (01) | LOC: LBN 11:33 | PROVIDERS: PCP Emergency Medicine; Visit Provider Physician Assistant Medical | DX: R39.89 Other symptoms and signs involving the genitourinary system (principal) | CPT/HCPCS: 87086 ==

== ENCOUNTER 2021-08-14 04:26 | Outpatient (CLI) | payer OTHER, SELFPAY ==
[2021-08-14 11:54] LABS: COMMENT (LAB VIEW ONLY) 89.73 mg/dL; Microalb ug/mg Crea 10.4 ug/mg Cr
[2021-08-14 12:02] LABS: Anion Gap 7.6 mmol/L (3-11); BUN 14 mg/dL (7-18); CO2 29.4 mmol/L (21.0-32.0); CREATININE 1.4 mg/dL (0.55-1.02); Calcium 9.1 mg/dL (8.5-10.1); Calculated LDL 156 mg/dL (<100); Chloride 106 mmol/L (98-107); Cholesterol 243 mg/dL (<200); Estimated GFR 38.23 (mL/min/1.73m2); Glucose 117 mg/dL (74-106); HDL Cholesterol 57 mg/dL (40-60); Potassium 4.4 mmol/L (3.5-5.1); Sodium 143 mmol/L (136-145); TSH 1.59 uIU/mL (0.36-3.74); Triglyceride 151 mg/dL (<150)
== END 2021-08-14 04:27 | disposition home or self-care (01) ==
LOC: LBO 04:26
PROVIDERS: PCP Family Medicine; Visit Provider Emergency Medicine
DX: E03.9 Hypothyroidism, unspecified (principal); E11.9 Type 2 diabetes mellitus without complications; I10 Essential (primary) hypertension
CPT/HCPCS: 36415; 80048; 80061; 82043; 82570; 83036; 84443

== ENCOUNTER 2021-10-17 19:31 | Outpatient (REF) | payer OTHER, SELFPAY ==
[2021-10-17 18:38] LABS: Uric Acid 8.6 mg/dL (2.6-6.0)
== END 2021-10-17 19:32 | disposition home or self-care (01) ==
LOC: LBN 19:31
PROVIDERS: PCP Family Medicine; Visit Provider Nurse Practitioner Family
DX: M10.9 Gout, unspecified (principal)
CPT/HCPCS: 84550

== ENCOUNTER 2021-12-01 20:57 | Outpatient (REF) | payer OTHER, SELFPAY ==
[2021-12-03 12:01] LABS: COVID-19 RT-PCR UVMMC Result Negative (Negative)
== END 2021-12-01 20:58 | disposition home or self-care (01) ==
LOC: LBN 20:57
PROVIDERS: PCP Family Medicine; Visit Provider Nurse Practitioner Family
DX: Z20.822 Contact with and (suspected) exposure to COVID-19 (principal)
CPT/HCPCS: U0003

== ENCOUNTER 2022-05-08 18:01 | Outpatient (REF) | payer MEDICAID, SELFPAY ==
[2022-05-08 13:56] LABS: *AMPHETAMINES SCREEN URINE Negative (Negative); *BARBITURATES SCREEN URINE Negative (Negative); *BENZODIAZEPINES SCREEN URINE Negative (Negative); Cannabinoids THC Negative (Negative); Cocaine Screen,Urine Negative (Negative); METHADONE URINE SCREEN Negative (Negative); OPIATES URINE SCREEN Positive (Negative); Tricyclic Antidepressants Negative (Negative)
[2022-05-12 09:06] LABS: 2-OH-Ethyl-Flurazepam Negative ng/mL (Cutoff: 10); 7-NH-Clonazepam 264 ng/mL (Cutoff: 10); 7-NH-Flunitrazepam Negative ng/mL (Cutoff: 10); Alpha OH-Alprazolam Negative ng/mL (Cutoff: 10); Alpha-OH Midazolam Negative ng/mL (Cutoff: 10); Alpha-OH-Triazolam Negative ng/mL (Cutoff: 10); Alprazolam Negative ng/mL (Cutoff: 10); Benzodiazepines Interpretation Positive.; Chlordiazepoxide Negative ng/mL (Cutoff: 10); Clobazam Negative ng/mL (Cutoff: 10); Clonazepam Negative ng/mL (Cutoff: 10); Diazepam Negative ng/mL (Cutoff: 10); Flurazepam Negative ng/mL (Cutoff: 10); Lorazepam Negative ng/mL (Cutoff: 10); Midazolam Negative ng/mL (Cutoff: 10); N-Desmethylclobazam Negative ng/mL (Cutoff: 10); Prazepam Negative ng/mL (Cutoff: 10); Temazepam Negative ng/mL (Cutoff: 10); Triazolam Negative ng/mL (Cutoff: 10); Zolpidem Carboxylic acid Negative ng/mL (Cutoff: 10)
== END 2022-05-08 18:02 | disposition home or self-care (01) ==
LOC: LBN 18:01
PROVIDERS: PCP Nurse Practitioner; Visit Provider Nurse Practitioner Family
DX: G47.00 Insomnia, unspecified (principal)
CPT/HCPCS: 80307; 80346

== ENCOUNTER 2022-07-28 12:34 | Outpatient (REF) | payer MEDICAID, SELFPAY | END 2022-07-28 12:35 | disposition home or self-care (01) | LOC: LBN 12:34 | PROVIDERS: PCP Nurse Practitioner Family; Visit Provider Physician Assistant Medical | DX: N39.0 Urinary tract infection, site not specified (principal) | CPT/HCPCS: 87077; 87086; 87186 ==

== ENCOUNTER 2022-08-07 02:23 | Outpatient (CLI) | payer MEDICAID, SELFPAY ==
[2022-08-07 13:22] LABS: COMMENT (LAB VIEW ONLY) 101.68 mg/dL; Microalb ug/mg Crea 36.9 ug/mg Cr
[2022-08-07 13:23] LABS: ALT 29 U/L (14-59); AST 19 U/L (15-37); Albumin 3.6 g/dL (3.4-5.0); Alkaline Phosphatase 115 U/L (46-116); Anion Gap 9.7 mmol/L (3-11); BUN 14 mg/dL (7-18); Bilirubin, Total 0.3 mg/dL (0.2-1.0); CO2 27.3 mmol/L (21.0-32.0); CREATININE 1.4 mg/dL (0.55-1.02); Calcium 9.5 mg/dL (8.5-10.1); Calculated LDL 141 mg/dL (<100); Chloride 108 mmol/L (98-107); Cholesterol 220 mg/dL (<200); Estimated GFR 42.54 (mL/min/1.73m2); Glucose 118 mg/dL (74-106); HDL Cholesterol 53 mg/dL (40-60); Potassium 3.8 mmol/L (3.5-5.1); Sodium 145 mmol/L (136-145); TSH (W/Ref FT4) 1.49 uIU/mL (0.36-3.74); Total Protein 7.6 g/dL (6.4-8.2); Triglyceride 133 mg/dL (<150)
[2022-08-07 14:48] LABS: Uric Acid 7.6 mg/dL (2.6-6.0)
[2022-08-09 13:20] LABS: HIV-1/2 Ag & Ab Screen Negative (Negative)
[2022-08-10 09:24] LABS: Hepatitis C Ab w Rflx HCV PCR Negative (Negative)
== END 2022-08-07 02:24 | disposition home or self-care (01) ==
LOC: LOS 02:23
PROVIDERS: PCP Nurse Practitioner Family; Visit Provider Family Medicine
DX: I10 Essential (primary) hypertension (principal); E11.9 Type 2 diabetes mellitus without complications; E03.9 Hypothyroidism, unspecified; M10.9 Gout, unspecified; N18.30 Chronic kidney disease, stage 3 unspecified; Z11.4 Encounter for screening for human immunodeficiency virus [HIV]; Z11.59 Encounter for screening for other viral diseases
CPT/HCPCS: 36415; 80053; 80061; 86803; 87389; 82043; 82570; 84443; 84550

== ENCOUNTER 2022-09-11 16:05 | Outpatient (REF) | payer BC, MEDICAID, SELFPAY ==
--- NOTE | 2022-09-11 15:12 | PAPFT_PTH ---
PATIENT: Delphine Chou V LOC: [facility] U#:[id number] AGE/SX: 62/F ROOM: RE09/11/[address]: Alisia Payton MD : [id number] BED: DIS: 09/11/2022 SPEC #: [id number] RECD: 09/11/22 18:22 STATUS: ERNST REThiago #: [id number] NUNO: 09/11/22 15:[address]: Alisia Payton DEPT: [facility] Cytology RECD BY: Keena Shahid ENTERED: 09/11/22 18:22 SP TYPE: PAPFT ALAN DR: Nancy Cabrera, NEIL Tissues: 1 - CX/ENDOCX FOR PAP SMEARS Procedures: PAP THIN PREP/UVM Screening HPV DNA PROBE Comments: [id number]
== END 2022-09-11 16:06 | disposition home or self-care (01) ==
LOC: LBN 16:05
PROVIDERS: PCP Nurse Practitioner Family; Visit Provider Obstetrics & Gynecology
DX: Z12.4 Encounter for screening for malignant neoplasm of cervix (principal); Z11.51 Encounter for screening for human papillomavirus (HPV)
CPT/HCPCS: 88142; 87624

== ENCOUNTER 2022-09-21 01:34 | Outpatient (CLI) | payer BC, MEDICAID, SELFPAY ==
--- NOTE | 2022-09-21 08:00 | DI.MAMMO_ITS ---
Exam(s) MAMMO SCREENING EXAM: MAMMO SCREENING CLINICAL HISTORY: screening,Z12.39 TECHNIQUE: Mammograms were interpreted according to the usual protocol including computer analysis w [employer] CAD system, tomosynthesis and C-view imaging. COMPARISON: 2013 through 2020 FINDINGS: The breasts are composed of scattered fibroglandular densities, Breast Density category B. No suspicious masses or suspicious microcalcifications are seen. There is a stable circumscribed nod ule in the upper outer quadrant of the left breast. A biopsy marker clip is again noted adjacent to a tiny nodule in the posterior lower inner quadrant of the right breast. No skin thickening or abnormal axillary lymph nodes are seen. There has been no significant change from prior exams. IMPRESSION: Yearly screening mammography is recommended. BI-RADS Cat 2 - Benign Findings Breast Density - Category B, scattered fibroglandular densities. A negative radiographic report should not delay biopsy if a dominant or clinically suspicious mass is present. Up to ten percent of cancers are not identified on mammography. A negative report may reinforce clinical impression. Adenosis and dense breasts may obscure an underlying neoplasm. False positive reports average 6 to 10%. Patient will receive a letter notifying them of these results.
== END 2022-09-21 01:54 ==
PROVIDERS: PCP Nurse Practitioner Family; Visit Provider Obstetrics & Gynecology
DX: Z12.31 Encounter for screening mammogram for malignant neoplasm of breast (principal)
CPT/HCPCS: 77063; 77067

== ENCOUNTER 2023-02-11 10:09 | Outpatient (REF) | payer MEDICAID, SELFPAY ==
[2023-02-11 12:31] LABS: Bilirubin Negative (Negative); Blood Negative (Negative); Clarity Clear (Clear); Glucose Negative (Negative); Ketones Negative (Negative); Leukocyte Esterase Small (Negative); Nitrite Negative (Negative); Specific Gravity >= 1.030 (1.005-1.025); Urobilinogen 0.2 mg/dL (Up to 0.2)
[2023-02-11 12:37] LABS: Bacteria Few HPF (Negative); C & S Indicated? No/Sq. Contamination; Casts Negative LPF (Negative); Crystals Negative HPF (Negative); Epithelial Cells Moderate HPF (Negative); Mucus Negative (Negative); RBC Negative HPF (0-2)
== END 2023-02-11 10:10 | disposition home or self-care (01) ==
LOC: LBN 10:09
PROVIDERS: PCP Nurse Practitioner Family; Visit Provider Nurse Practitioner Family
DX: R30.0 Dysuria (principal); R35.0 Frequency of micturition; N39.0 Urinary tract infection, site not specified
CPT/HCPCS: 81003; 81015

== ENCOUNTER 2023-02-11 10:53 | Outpatient (CLI) | payer MEDICAID, SELFPAY ==
[2023-02-11 12:19] LABS: Abs Immature Grans 0.01 10^3/uL (0.0-0.06); Absolute Basophil Count 0.07 10^3/uL (0.0-0.2); Absolute Eosinophil Count 0.43 10^3/uL (0.0-0.7); Absolute Lymphocyte Count 2.39 10^3/uL (1.2-3.4); Absolute Monocyte Count 0.35 10^3/uL (0.1-0.8); Absolute Neutrophil Count 3.95 10^3/uL (1.2-6.7); HCT 38.2 % (36.0-46.0); HGB 11.9 g/dL (11.2-15.7); Immature Grans % 0.1; Lymphocytes % 33.2; MCH 30.9 pg (27.0-33.0); MCHC 31.2 % (32.0-36.0); MCV 99 fL (80-95); MPV 10.4 fL (8.0-11.0); Monocytes % 4.9; Neutrophils % 54.8; Platelet Count 310 10^3/uL (130-400); RBC 3.85 10^6/uL (3.93-5.22); RDW-SD 50.7 fL
[2023-02-11 12:35] LABS: Anion Gap 6.6 mmol/L (3-11); BUN 16 mg/dL (7-18); CO2 28.4 mmol/L (21.0-32.0); CREATININE 1.8 mg/dL (0.55-1.02); Calcium 9.5 mg/dL (8.5-10.1); Chloride 108 mmol/L (98-107); Estimated GFR 31.46 (mL/min/1.73m2); Glucose 109 mg/dL (74-106); Potassium 3.9 mmol/L (3.5-5.1); Sodium 143 mmol/L (136-145)
== END 2023-02-11 10:54 | disposition home or self-care (01) ==
LOC: LOS 10:53
PROVIDERS: PCP Nurse Practitioner Family; Referring Provider Nurse Practitioner Family; Visit Provider Nurse Practitioner Family
DX: E11.9 Type 2 diabetes mellitus without complications (principal); N18.30 Chronic kidney disease, stage 3 unspecified; N39.0 Urinary tract infection, site not specified; I10 Essential (primary) hypertension; K21.9 Gastro-esophageal reflux disease without esophagitis
CPT/HCPCS: 36415; 80048; 85025

== ENCOUNTER 2023-02-11 15:10 | Outpatient (CLI) | payer MEDICAID, SELFPAY ==
--- NOTE | 2023-02-11 13:15 | DI.US_ITS ---
Exam(s) US RENAL EXAM: US RENAL CLINICAL HISTORY: UTI, N39.0, evaluate renal stones/hydronephrosis TECHNIQUE: Ultrasound of both kidneys performed using standard protocol. COMPARISON: Prior CT scan of April 2021 was reviewed. FINDINGS: RIGHT KIDNEY: Measures 9.6 cm in length. No cysts evident. Normal cortical thickness and corticomedullary different iation .No solid masses No intrarenal calculi nor hydronephrosis.The right ureterovesical jet in the urinary bladder was seen . LEFT KIDNEY: Measures 9.2 cm in length. No cysts evident. Normal cortical thickness and corticomedullary differen tiaion. No solids masses. No obvious calculi seen in the left kidney but there appears to be possibl e mild hydronephrosis of the left kidney. In addition, the left ureterovesical jet in the urinary bl adder was not visualized. URINARY BLADDER: Prevoid volume is 52 cc Postvoid volume is 14 cc No evidence of bladder mass nor diverticuli. IMPRESSION: 1. No calculi seen in the kidneys but there is slight dilatation of the left upper collecting system and absence of visualization of the left ureteral vesicle jet at the urinary bladder level. This ma y imply presence of a calculus in the left ureter. 2. Right kidney unremarkable. Wet read. DATA REPOSITORY:
== END 2023-02-11 15:30 ==
LOC: DI 15:10
PROVIDERS: PCP Nurse Practitioner Family; Visit Provider Nurse Practitioner Family
DX: N39.0 Urinary tract infection, site not specified (principal); N13.2 Hydronephrosis with renal and ureteral calculous obstruction
CPT/HCPCS: 76770

== ENCOUNTER → 2023-03-15 08:44 | Outpatient (CLI) | payer MEDICAID, SELFPAY ==
--- NOTE | 2023-03-15 08:00 | DI.US_ITS ---
Exam(s) US LOWER EXTREMITY VENOUS LT EXAM: US LOWER EXTREMITY VENOUS LT CLINICAL HISTORY: LT LEG PAIN, M79.605, ? DVT TECHNIQUE: Grayscale, color, and doppler imaging of the deep venous system of the left lower extremi ty was performed. COMPARISON: US US RENAL from 02/11/2023 FINDINGS: There is no evidence of intraluminal thrombus and there is normal compression and augmentation demons trated within the common femoral vein, femoral vein, and popliteal vein. In the ipsilateral calf the interrogated veins also exhibit normal compression/ augmentation properti es. The ipsilateral saphenofemoral junction is patent. IMPRESSION: 1. No evidence of DVT in the left lower extremity. DATA REPOSITORY:
== END ==
PROVIDERS: PCP Nurse Practitioner Family; Visit Provider Physician Assistant
DX: M79.605 Pain in left leg (principal)
CPT/HCPCS: 93971

== ENCOUNTER → 2023-04-13 01:33 | Outpatient (CLI) | payer MEDICAID, SELFPAY ==
--- NOTE | 2023-04-13 06:45 | DI.US_ITS ---
Exam(s) US RENAL EXAM: US RENAL CLINICAL HISTORY: monitoring ? resolution of hydronephrosis to left,chronic kidney disease,. TECHNIQUE: Coto scale, color and spectral Doppler were used. COMPARISON: US US RENAL from 02/11/2023 FINDINGS: Renal size in cm: Right: 8.7 left: 8.1 Echogenicity: Normal Hydronephrosis: No Cyst or mass: 1.3 centimeter cyst left mid kidney. Nephrolithiasis: No Bladder:Normal as visualized. Suboptimally distended. Prevoid vol:41 Postvoid vol: 0 IMPRESSION: No evidence of hydronephrosis. DATA REPOSITORY:
== END ==
PROVIDERS: PCP Nurse Practitioner Family; Visit Provider Nurse Practitioner Gerontology
DX: N18.30 Chronic kidney disease, stage 3 unspecified
CPT/HCPCS: 76770

== ENCOUNTER 2023-04-20 03:26 | Outpatient (CLI) | payer MEDICAID, SELFPAY ==
[2023-04-20 12:42] LABS: BUN 18 mg/dL (7-18); CREATININE 1.5 mg/dL (0.55-1.02); Estimated GFR 39.16 (mL/min/1.73m2)
== END 2023-04-20 03:27 | disposition home or self-care (01) ==
LOC: LBO 03:26
PROVIDERS: PCP Nurse Practitioner Family; Visit Provider Nurse Practitioner Gerontology
DX: N18.30 Chronic kidney disease, stage 3 unspecified (principal); N13.30 Unspecified hydronephrosis
CPT/HCPCS: 36415; 84520; 82565

== ENCOUNTER 2023-06-07 14:56 | Emergency (ER) | payer MEDICAID, SELFPAY ==
[2023-06-07 15:01] VITALS: BP 202/104; PULSE 110; RESP 17; TEMP 36.9; O2SAT 97
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
[2023-06-07 15:26] LABS: Bilirubin Negative (Negative); Blood Trace-intact (Negative); Clarity Clear (Clear); Glucose Negative (Negative); Ketones Negative (Negative); Leukocyte Esterase Trace (Negative); Nitrite Negative (Negative); Specific Gravity 1.025 (1.005-1.025); Urobilinogen 0.2 mg/dL (Up to 0.2); pH 5.5 (5-8)
[2023-06-07 15:38] LABS: Bacteria Rare HPF (Negative); Crystals Negative HPF (Negative); Epithelial Cells Rare HPF (Negative); Mucus Trace (Negative); RBC 0-2 HPF (0-2); WBC 0-2 HPF (0-5)
[2023-06-07 15:39] LABS: C & S Indicated? Yes; Casts Negative LPF (Negative)
[2023-06-07 15:45] VITALS: BP 164/96; PULSE 92; O2SAT 96
[2023-06-07] MEDS: Ketorolac 15 MG/ML VIAL IVP (15:49)
[2023-06-07] MEDS: Normal Saline 1,000 ML 1000 ML IV (15:49)
[2023-06-07] MEDS: Tamsulosin 0.4 MG CAPCR PO (15:50)
[2023-06-07 15:51] LABS: Abs Immature Grans 0.04 10^3/uL (0.0-0.06); Absolute Basophil Count 0.08 10^3/uL (0.0-0.2); Absolute Eosinophil Count 0.44 10^3/uL (0.0-0.7); Absolute Lymphocyte Count 3.07 10^3/uL (1.2-3.4); Absolute Monocyte Count 0.54 10^3/uL (0.1-0.8); Basophils % 0.7; Eosinophils % 3.8; HCT 40.3 % (36.0-46.0); HGB 12.9 g/dL (11.2-15.7); Immature Grans % 0.3; Lymphocytes % 26.5; MCH 30.3 pg (27.0-33.0); MCV 95 fL (80-95); MPV 9.1 fL (8.0-11.0); Monocytes % 4.7; Platelet Count 348 10^3/uL (130-400); RBC 4.26 10^6/uL (3.93-5.22); RDW 13.1 % (11.7-14.6); RDW-SD 45.2 fL; WBC 11.57 10^3/uL (4.4-10.8)
--- NOTE | 2023-06-07 15:55 | NUR.NOTE ---
Nursing Note: Pamphlet for [facility] in [facility] given to patient. Patient receptive to information No further information on the situation given to this RN about home life.
[2023-06-07 16:00] VITALS: BP 154/81
[2023-06-07 16:06] LABS: ALT 25 U/L (14-59); AST 15 U/L (15-37); Albumin 3.8 g/dL (3.4-5.0); Alkaline Phosphatase 103 U/L (46-116); Anion Gap 6.3 mmol/L (3-11); BUN 16 mg/dL (7-18); Bilirubin, Total 0.3 mg/dL (0.2-1.0); CO2 29.7 mmol/L (21.0-32.0); CREATININE 1.4 mg/dL (0.55-1.02); Calcium 10.2 mg/dL (8.5-10.1); Chloride 103 mmol/L (98-107); Estimated GFR 42.54 (mL/min/1.73m2); Glucose 109 mg/dL (74-106); Potassium 3.9 mmol/L (3.5-5.1); Sodium 139 mmol/L (136-145); Total Protein 7.9 g/dL (6.4-8.2)
--- NOTE | 2023-06-07 16:30 | DI.CT_ITS ---
Exam(s) CT ABDOMEN PELVIS WO EXAM: CT ABDOMEN PELVIS WO CLINICAL HISTORY: left groin.suprapubic pain; hx of kidney stones. TECHNIQUE: Imaging Protocol: Axial computed tomography images with coronal and sagittal reformatted images were created and reviewed CONTRAST MATERIAL: Intravenous: none Oral: None COMPARISON: CT ABD PELVIS WITH CONTRAST from 02/25/[address] RENAL COLIC WO from 04/08/2021 FINDINGS: VISUALIZED LUNG BASES: No nodules nor pleural effusions evident. ABDOMEN: There is no ascites. LIVER: There are no obvious focal hepatic lesions evident of this noninfused study. GALLBLADDER/BILIARY: Gallbladder is again noted be surgically absent. CBD is not dilated. PANCREAS: No evidence of pancreatic mass nor dilatation of the pancreatic duct. SPLEEN: Spleen is not enlarged. No obvious intrasplenic lesions. Solitary calcified granuloma noted in the inferior aspect of the spleen, unchanged. ADRENALS: Right adrenal gland unremarkable. There is a nodular density in the lateral limb of the le ft adrenal gland, unchanged, measuring 1.3 x 1.5 cm. KIDNEYS:Right kidney unremarkable. Hypodensity in the lateral cortex of the left kidney measures 1.2 x 1.1 cm. Probably cyst but difficult to assess without IV contrast. There are no calculi in the k idneys and nondilated ureters and there are no calculi within the nondistended urinary bladder.. ABDOMINAL AORTA: Abdominal aorta is not enlarged. LYMPH NODES: There is no retroperitoneal nor paraaortic adenopathy. ABDOMINAL WALL: There are bilateral symmetrical appearing fat only containing inguinal hernias. GI: There is no evidence of bowel obstruction, free air, nor abscess. PELVIS: LYMPH NODES: There is no intrapelvic nor inguinal adenopathy. GI: Mobile cecum. Cecum is in the midline. No evidence of appendicitis.There is sigmoid diverticulo sis. No evidence of obvious acute diverticulitis. There also diverticuli in the descending-left col on at and distal to the splenic flexure. No colitis pattern seen. URINARY BLADDER: No calculi nor obvious masses evident REPRODUCTIVE: Uterus size upper normal and retroverted.. Densities in both periuterine regions are p ossibly exophytic fibroids versus ovaries. The previously present large cyst on the left side is not seen but there is a density at this level of almost similar size and this may be uniformly hemorrhag ic. Other consideration would be interval development of the of an or enlargement of an exophytic fi broid at this level. There is a smaller exophytic fibroid at this level seen on the prior CT scan of 2011. There is no free fluid in the pelvis. OSSEOUS: No significant osseous lesions. IMPRESSION: 1. Left side: Diverticulosis without evidence of acute diverticulitis. There is also no evidence of acute appendicitis in this patient who has a mobile midline cecum. 2. Gallbladder surgically absent. Biliary tree is not dilated. 3. Bilateral fat only containing inguinal hernias of similar size. No bowel obstruction. 4. Bilateral adnexal masses larger on the left side either hemorrhagic cyst or exophytic fibroid. N o free fluid. On the left side this measures approximately 2.7 x 3 by 4 cm. Recommend follow-up ul trasound of the pelvis to differentiate between hemorrhagic ovarian cysts versus exophytic fibroid. Called by myself to ER physician RADIATION DOSE DELIVERED: Total DLP DATA REPOSITORY: All CT scans at this facility are submitted to the National Radiology Data Registry (NRDR) Dose Index Registry (DIR) with the [employer] (ACR). RADIATION OPTIMIZATION: All CT scans at this facility use at least one of these dose optimization te chniques: automated exposure control; mA and/or kV adjustment per patient size (includes targeted exa ms where dose is matched to clinical indication); or iterative reconstruction.
[2023-06-07 16:52] VITALS: BP 164/87; PULSE 86
[2023-06-07 17:34] VITALS: BP 164/88; PULSE 93; RESP 20; O2SAT 99
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
[2023-06-07] MEDS: Cephalexin 500 MG CAP PO (18:09)
== END 2023-06-07 18:22 | disposition home or self-care (01) ==
PROVIDERS: Emergency Provider Emergency Medicine; PCP Nurse Practitioner Family
DX: N94.89 Other specified conditions associated with female genital organs and menstrual cycle (principal); K57.30 Diverticulosis of large intestine without perforation or abscess without bleeding; N39.0 Urinary tract infection, site not specified; Z90.49 Acquired absence of other specified parts of digestive tract
CPT/HCPCS: 80053; 96361; 96374; 99284; 74176; 81003; 81015; 85025; 87086; J1885

== ENCOUNTER → 2023-06-09 00:49 | Outpatient (CLI) | payer MEDICAID, SELFPAY ==
--- NOTE | 2023-06-09 | DI.US_ITS ---
Exam(s) US PELVIS TRANSVAGINAL EXAM: US PELVIS TRANSVAGINAL CLINICAL HISTORY: ADNEXAL/PELVIC MASSES ON CT. TECHNIQUE: Transabdominal and transvaginal pelvic ultrasound was performed using standard protocol. COMPARISON: CT ABD PELVIS WITH CONTRAST from 02/25/2012 US PELVIS TRANSVAG from 02/25/[address] RENAL COLIC WO from 04/08/[address] ABDOMEN PELVIS WO from 06/07/2023 FINDINGS: UTERUS: Position: Retroverted. Size: 5.7 long by 3.0 AP by 3.6 transverse cm Endometrium: 0.2 cm. Normal for patient's menstrual status. Myometrium: Unremarkable. Cervix: Unremarkable. There is a 2.6 x 2.2 x 3.3 cm hypoechoic solid left adnexal mass. This would appear to correspond to the soft tissue mass seen adjacent to the uterus on the left on the CT scan from 06/07/2023. This jones s a similar appearance to prior CT examinations. This may be uterine origin and represent a fibroid. OVARIES: The patient reports prior left oophorectomy. Right: 2.7 x 1.7 x 1.8 cm Cyst or mass: No suspicious cystic or solid masses. 1.7 x 1.5 x 1.6 cm right ovarian cyst. DOPPLER: Color: Not definitely seen to the right ovary. CUL-DE-SAC: Free fluid: None. Other: None. IMPRESSION: 1. 2.6 x 2.2 x 2.3 cm hypoechoic left adnexal mass. The patient is status post left oophorectomy. A n MRI of the pelvis should be considered in this patient for further evaluation. This may represent a uterine mass a ches a fibroid. 2. Unremarkable right ovary. Unexpected findings DATA REPOSITORY:
== END ==
PROVIDERS: PCP Nurse Practitioner Family; Visit Provider Emergency Medicine
DX: N83.311 Acquired atrophy of right ovary (principal); Z90.721 Acquired absence of ovaries, unilateral
CPT/HCPCS: 76830; 76856

== ENCOUNTER → 2023-07-02 01:04 | Outpatient (CLI) | payer MEDICAID, SELFPAY ==
[2023-07-02] MEDS: Gadoterate meglumine 20 ML VIAL 19 ML IVP (13:55)
[2023-07-02] MEDS: Normal Saline Flush 10 ML SYR IJ (13:56)
--- NOTE | 2023-07-02 14:40 | DI.MRI_ITS ---
Exam(s) MR PELVIS WO/W EXAM: MR PELVIS WO/W CLINICAL HISTORY: adnexal mass found on CT and US,R19.00 COMPARISON: CT CT ABDOMEN PELVIS WO from 06/07/2023 FINDINGS: Bowel: There is diverticulosis seen in the colon. Urinary bladder: Unremarkable. Vasculature: Unremarkable. Lymph nodes: No pelvic adenopathy. Soft tissues: There appear to be bilateral fat containing inguinal hernias. Bones: Unremarkable. Reproductive organs: The uterus is unremarkable. Cervical nabothian cysts are seen. There is a 4.0 x 2.5 cm left adnexal mass which is hypointense on both T1 and T2 weighted images. Thin septa are se en internally. Following contrast administration there is enhancement peripherally there is mild enh ancement internally with a nonenhancing rounded area measuring 1.0 cm, laterally. The right ovary me asures 1.9 x 1.5 cm. IMPRESSION: 1. 4.0 x 2.5 cm left adnexal mass as described above. Differential considerations include endometrio ma or ovarian lesions particularly fibroma or fibrothecoma. Metastasis should also be considered. 2. Diverticulosis of the colon. DATA REPOSITORY:
== END ==
PROVIDERS: PCP Nurse Practitioner Family; Visit Provider Nurse Practitioner Family
DX: R19.09 Other intra-abdominal and pelvic swelling, mass and lump (principal); K57.30 Diverticulosis of large intestine without perforation or abscess without bleeding
CPT/HCPCS: 72197

== ENCOUNTER 2023-07-14 09:37 | Outpatient (CLI) | payer MEDICAID, SELFPAY ==
[2023-07-14 18:45] LABS: CEA 1.1 ng/mL (See Note)
[2023-07-14 19:24] LABS: CA 125 8 U/mL (<30)
[2023-07-14 23:34] LABS: CA 19-9 3 U/mL (<35)
[2023-07-20 14:20] LABS: Inhibin A, Tumor Marker <2.0 pg/mL; Inhibin B <10 pg/mL
== END 2023-07-14 09:38 | disposition home or self-care (01) ==
LOC: LBO 09:37
PROVIDERS: PCP Nurse Practitioner Family; Visit Provider Obstetrics & Gynecology
DX: N94.89 Other specified conditions associated with female genital organs and menstrual cycle (principal)
CPT/HCPCS: 36415; 86304; 86336; 82378; 86301

== ENCOUNTER 2023-09-02 14:20 | Outpatient (REF) | payer MEDICAID, SELFPAY ==
[2023-09-02 13:40] LABS: COMMENT (LAB VIEW ONLY) 150.25 mg/dL; Microalb ug/mg Crea 10.2 ug/mg Cr
== END 2023-09-02 14:21 | disposition home or self-care (01) ==
LOC: LBN 14:20
PROVIDERS: PCP Nurse Practitioner Family; Visit Provider Nurse Practitioner Family
DX: E11.9 Type 2 diabetes mellitus without complications (principal)
CPT/HCPCS: 82043; 82570

== ENCOUNTER 2023-10-27 20:33 | Emergency (ER) | payer MEDICAID, SELFPAY ==
[2023-10-27 20:35] VITALS: BP 126/79; PULSE 128; RESP 18; TEMP 36.1; O2SAT 94
[2023-10-27 20:55] LABS: Abs Immature Grans 0.02 10^3/uL (0.0-0.06); Absolute Eosinophil Count 0.43 10^3/uL (0.0-0.7); Absolute Lymphocyte Count 3.11 10^3/uL (1.2-3.4); Absolute Monocyte Count 0.64 10^3/uL (0.1-0.8); Absolute Neutrophil Count 8.07 10^3/uL (1.2-6.7); Basophils % 0.2; Eosinophils % 3.5; HCT 47.9 % (36.0-46.0); Immature Grans % 0.2; Lymphocytes % 25.3; MCH 30.2 pg (27.0-33.0); MCHC 31.3 % (32.0-36.0); MCV 96 fL (80-95); MPV 9.2 fL (8.0-11.0); Monocytes % 5.2; Neutrophils % 65.6; Platelet Count 475 10^3/uL (130-400); RBC 4.97 10^6/uL (3.93-5.22); RDW 13.4 % (11.7-14.6); RDW-SD 48.2 fL
[2023-10-27 20:56] LABS: Absolute Basophil Count 0.02 10^3/uL (0.0-0.2)
[2023-10-27] MEDS: Lactated Ringers 1,000 ML 1000 ML IV (20:56)
--- NOTE | 2023-10-27 21:12 | W.ED.GENAD ---
Discharge Plan Disposition Patient Disposition: Home Condition: Stable Discharge Details Clinical Impression: Acute dehydration, Loose stools, Abdominal pain, Vomiting Primary Care Provider: Nancy Cabrera ED Provider: Tal Bradford Home Meds and New Rx's Prescriptions: Continued omeprazole 20 mg capsule,delayed release(DR/EC) 20 mg PO DAILY PRN Patient Comments: pt. takes ranitidine now nystatin 100,000 unit/gram ointment 1 applic topical BID PRN (Reason: yeast ) Qty: 30 1RF clonazepam 0.5 mg tablet 0.5 mg PO BID PRN (Reason: sleep or anxiety) Qty: 60 0RF bupropion HCl [Wellbutrin XL] 150 mg tablet extended release 24 hr 150 mg PO QAM Qty: 90 3RF ondansetron HCl 4 mg tablet 4 mg PO Q8H PRN (Reason: nausea and vomiting) Qty: 60 0RF lamotrigine 100 mg tablet 100 mg PO DAILY montelukast 10 mg tablet 10 mg PO QHS Qty: 90 1RF albuterol sulfate 90 mcg/actuation HFA aerosol inhaler 2 inh inhalation Q4H PRN (Reason: shortness of breath or wheezing) Qty: 18 1RF (DME) Aerochamber MV Spacer See Rx Instructions .Route Qty: 1 0RF Rx Instructions: As directed cholecalciferol (vitamin D3) 25 mcg (1,000 unit) tablet 2,000 unit PO DAILY Qty: 90 duloxetine [Cymbalta] 60 mg capsule,delayed release(DR/EC) 60 mg PO DAILY Qty: 90 lisinopril 30 mg tablet See Rx Instructions .ROUTE .COMPLEX Qty: 90 4RF Dose Instruction: TAKE ONE TABLET BY MOUTH EVERY DAY Rx Instructions: TAKE ONE TABLET BY MOUTH EVERY DAY amlodipine 10 mg tablet 10 mg PO DAILY Qty: 90 3RF allopurinol 200 mg tablet 200 mg PO DAILY Qty: 90 3RF quetiapine 100 mg tablet 150 mg PO HS levothyroxine [Synthroid] 100 mcg tablet 100 mcg PO DAILY Qty: 90 3RF acetaminophen [Tylenol] 325 mg tablet 650 mg PO Q6H PRN (Reason: pain) Qty: 30 0RF Discharge Instructions Instructions: Dehydration (ED), Gastroenteritis (ED), Abdominal Pain (ED) Additional Instructions: Maintain a clear liquid diet over the next day. Advance your diet slowly thereafter to bland foods. Please drink small amounts of clear fluid frequently in order to stay hydrated. Use ondansetron as prescribed. Please contact your primary care physician to arrange follow-up. Return to the ER immediately for any worsening or new concerning symptoms. Referrals: Nancy Cabrera NP [Primary Care Provider] - [facility] General Mode of arrival: ambulatory. Date/Time Provider Initiated Documentation: 10/27/23 20:42. Limitations to Documentation: no limitations. Information obtained by: patient. HPI Narrative: 63-year-old female presents with chief complaint of diarrhea. Patient notes she has had loose stool since yesterday. She has associated nausea and vomiting. She is not tolerating p.o. intake. She has associated diffuse abdominal pain. She denies fever. No blood in her stool or vomit. No known sick contacts. No recent antibiotics. Related Data Home Medications Medication Instructions Recorded Confirmed acetaminophen 325 mg tablet 650 mg (2 x 325 mg) PO Q6H PRN 03/22/19 10/27/23 (Tylenol) pain #30 tabs cholecalciferol (vitamin D3) 25 2,000 unit PO DAILY #90 tabs 10/13/19 10/27/23 mcg (1,000 unit) tablet omeprazole 20 mg capsule,delayed 20 mg PO DAILY PRN 05/17/20 10/27/23 release duloxetine 60 mg capsule,delayed 60 mg PO DAILY #90 tab-caps 05/08/22 10/27/23 release (Cymbalta) lamotrigine 100 mg tablet 100 mg PO DAILY 05/08/22 10/27/23 lisinopril 30 mg tablet See Rx Instructions .Route 09/07/22 10/27/23 .COMPLEX #90 tabs ondansetron HCl 4 mg tablet 4 mg PO Q8H PRN nausea and 10/09/22 10/27/23 vomiting #60 tabs amlodipine 10 mg tablet 10 mg PO DAILY #90 tabs 01/21/23 10/27/23 nystatin 100,000 unit/gram topical 1 applic topical BID PRN yeast 03/01/23 10/27/23 ointment #30 grams allopurinol 200 mg tablet 200 mg PO DAILY #90 tabs 06/10/23 10/27/23 quetiapine 100 mg tablet 150 mg PO HS 06/22/23 10/27/23 albuterol sulfate 90 mcg/actuation 2 inh inhalation Q4H PRN shortness 07/13/23 10/27/23 aerosol inhaler of breath or wheezing #18 grams inhalational spacing device #1 ea 07/13/23 09/02/23 (Aerochamber MV spacer) montelukast 10 mg tablet 10 mg PO QHS #90 tabs 07/13/23 10/27/23 bupropion HCl 150 mg 24 hr tablet, 150 mg PO QAM #90 tabs 09/02/23 10/27/23 extended release (Wellbutrin XL) clonazepam 0.5 mg tablet 0.5 mg PO BID PRN sleep or anxiety 09/02/23 10/27/23 #60 tabs levothyroxine 100 mcg tablet 100 mcg PO DAILY #90 tab-caps 10/04/23 10/27/23 (Synthroid) Previous Rx's Medication Instructions Recorded acetaminophen 325 mg tablet 650 mg (2 x 325 mg) PO Q6H PRN 03/22/19 (Tylenol) pain #30 tabs lisinopril 30 mg tablet See Rx Instructions .Route 09/07/22 .COMPLEX #90 tabs ondansetron HCl 4 mg tablet 4 mg PO Q8H PRN nausea and 10/09/22 vomiting #60 tabs amlodipine 10 mg tablet 10 mg PO DAILY #90 tabs 01/21/23 nystatin 100,000 unit/gram topical 1 applic topical BID PRN yeast 03/01/23 ointment #30 grams allopurinol 200 mg tablet 200 mg PO DAILY #90 tabs 06/10/23 albuterol sulfate 90 mcg/actuation 2 inh inhalation Q4H PRN shortness 07/13/23 aerosol inhaler of breath or wheezing #18 grams inhalational spacing device #1 ea 07/13/23 (Aerochamber MV spacer) montelukast 10 mg tablet 10 mg PO QHS #90 tabs 07/13/23 bupropion HCl 150 mg 24 hr tablet, 150 mg PO QAM #90 tabs 09/02/23 extended release (Wellbutrin XL) clonazepam 0.5 mg tablet 0.5 mg PO BID PRN sleep or anxiety 09/02/23 #60 tabs levothyroxine 100 mcg tablet 100 mcg PO DAILY #90 tab-caps 10/04/23 (Synthroid) Allergies Allergy/AdvReac Type Severity Reaction Status Date / Time lactose AdvReac Intermediate Diarrhea Verified 10/27/23 20:41 ziprasidone HCl [From Geodon] AdvReac Intermediate leg pain, Verified 10/27/23 20:41 couldn't sit still ziprasidone mesylate AdvReac Intermediate leg pain, Verified 10/27/23 20:41 [From Geodon] couldn't sit still amoxicillin [Amoxicillin] AdvReac GI upset Verified 10/27/23 20:41 Metronidazole HCl AdvReac GI UPSET Verified 10/27/23 20:41 [From Flagyl] General Stated Complaint: Abd Prob MAYRA: 3 Review of Systems Gastrointestinal Gastrointestinal: Reports as per HPI and Reports abdominal pain Genitourinary Genitourinary: Denies dysuria Exam Const General: cooperative and no acute distress HENMT Mouth: moist mucous membranes Eyes Conjunctivae: normal conjunctivae Sclera: normal sclerae Resp Auscultation: clear to auscultation bilaterally, no rales, no rhonchi and no wheezes Cardio Rate: regular rate and not tachycardic Rhythm: regular rhythm GI Palpation: soft, not firm, no guarding, no masses, not rigid and tender in the LLQ, in the RLQ, in the LUQ and in the RUQ; with no rebound tenderness Skin General skin exam: no rashes or lesions noted Neuro General: patient alert, patient awake and tone normal Extrem General: no edema Psych Appearance: grossly normal Mental Status: mental status grossly normal Course Vital Signs Vital signs: Vital Signs Temperature 36.1 C L 10/27/23 20:35 Pulse 128 H 10/27/23 20:35 Respiratory Rate 18 10/27/23 20:35 Blood Pressure 126/79 10/27/23 20:35 Pulse Oximetry 94 10/27/23 20:35 Temperature 36.1 C L 10/27/23 20:35 Pulse 128 H 10/27/23 20:35 Respiratory Rate 18 10/27/23 20:35 Respiratory Effort Normal 10/27/23 20:39 Blood Pressure 126/79 10/27/23 20:35 Pulse Oximetry 94 10/27/23 20:35 Lab/Test Results Lab/Test Results: Laboratory Tests Range/Units 10/27/23 20:51 WBC (4.4-10.8) 10^3/uL 12.30 H RBC (3.93-5.22) 10^6/uL 4.97 Hgb (11.2-15.7) g/dL 15.0 Hct (36.0-46.0) % 47.9 H MCV (80-95) fL 96 H MCH (27.0-33.0) pg 30.2 MCHC (32.0-36.0) % 31.3 L RDW (11.7-14.6) % 13.4 Plt Count (130-400) 10^3/uL 475 H MPV (8.0-11.0) fL 9.2 Immature Gran % 0.2 Neutrophils % 65.6 Lymphocytes % 25.3 Monocytes % 5.2 Eosinophils % 3.5 Basophils % 0.2 Nucleated RBC % (0.0-0.3) % 0.0 Absolute Neutrophils (1.2-6.7) 10^3/uL 8.07 H Absolute Lymphocytes (1.2-3.4) 10^3/uL 3.11 Absolute Monocytes (0.1-0.8) 10^3/uL 0.64 Absolute Eosinophils (0.0-0.7) 10^3/uL 0.43 Absolute Basophils (0.0-0.2) 10^3/uL 0.02 Medical Decision Making 2114?63-year-old female presents with loose stool, nausea, vomiting and diffuse abdominal pain since yesterday. Patient is tachycardic, normotensive. She appears dehydrated. Patient has diffuse abdominal tenderness. Suspect gastroenteritis with dehydration. Consider pancreatitis and acute intra-abdominal surgical pathology. I will initiate treatment with IV fluid bolus. Patient took Zofran prior to arrival. I will give IV acetaminophen for discomfort. Plan to obtain CT of the abdomen pelvis. 2339 --CT of the abdomen pelvis was interpreted by radiology: No acute finding. Labs reviewed and nondiagnostic. Patient reassessed and feeling much better. Plan for discharge with outpatient follow-up. Disposition decision was made weighing the risks and benefits of hospitalization versus outpatient treatment, the risk for further decompensation, and the patient's wishes. The patient was stable and requested discharge. Prior to discharge, my usual and customary return precautions were reviewed with the patient - this included follow-up instructions and reason to return to the emergency department if condition worsens, does not improve as expected, or other new concerns arise. Lab Data Lab results reviewed: Yes I reviewed the patient's lab results. Labs: Laboratory Tests Range/Units 10/27/23 20:51 WBC (4.4-10.8) 10^3/uL 12.30 H RBC (3.93-5.22) 10^6/uL 4.97 Hgb (11.2-15.7) g/dL 15.0 Hct (36.0-46.0) % 47.9 H MCV (80-95) fL 96 H MCH (27.0-33.0) pg 30.2 MCHC (32.0-36.0) % 31.3 L RDW (11.7-14.6) % 13.4 Plt Count (130-400) 10^3/uL 475 H MPV (8.0-11.0) fL 9.2 Immature Gran % 0.2 Neutrophils % 65.6 Lymphocytes % 25.3 Monocytes % 5.2 Eosinophils % 3.5 Basophils % 0.2 Nucleated RBC % (0.0-0.3) % 0.0 Absolute Neutrophils (1.2-6.7) 10^3/uL 8.07 H Absolute Lymphocytes (1.2-3.4) 10^3/uL 3.11 Absolute Monocytes (0.1-0.8) 10^3/uL 0.64 Absolute Eosinophils (0.0-0.7) 10^3/uL 0.43 Absolute Basophils (0.0-0.2) 10^3/uL 0.02 Sodium (136-145) mmol/L 139 Potassium (3.5-5.1) mmol/L 4.2 Chloride (98-107) mmol/L 103 Carbon Dioxide (21.0-32.0) mmol/L 23.3 Anion Gap (3-11) mmol/L 12.7 H BUN (7-18) mg/dL 17 Creatinine (0.55-1.02) mg/dL 1.7 H Est GFR (CKD-EPI 2020) (mL/min/1.73m2) 33.49 Glucose (74-106) mg/dL 161 H Calcium (8.5-10.1) mg/dL 9.6 Magnesium (1.8-2.4) mg/dL 1.9 Total Bilirubin (0.2-1.0) mg/dL 0.5 AST (15-37) U/L 16 ALT (14-59) U/L 28 Alkaline Phosphatase (46-116) U/L 131 H Total Protein (6.4-8.2) g/dL 8.4 H Albumin (3.4-5.0) g/dL 3.8 Lipase (16-77) U/L 33 TSH (0.36-3.74) uIU/mL 5.58 H Free T4 (0.76-1.46) ng/dL 0.88 Quality:SDOH Health Related Social Needs: Health related social needs inadequate housing Health related social needs details NA PFSH All Active Problems (Updated 10/27/23 @ 23:36 by Tal Bradford MD) Vomiting (Acute) Abdominal pain (Acute) Loose stools (Acute) Acute dehydration (Acute) Hypothyroidism (Chronic 11/28/12) 2 nodules on the left side of the thyroid Allergies (Acute) Conjunctivitis (Acute) Adnexal mass (Acute) MRI on 07/02/23: 4.0 x 2.5 cm left adnexal mass Impacted cerumen, right ear (Acute) Anxiety (Chronic) Depressive disorder (Chronic) [place] [facility] [place] Essential hypertension (Chronic 08/21/13) Gastroesophageal reflux disease (Chronic) Refill her antireflux medications. Diabetes (Chronic) Gout (Chronic) Chronic kidney disease, stage 3 (Acute) Asymmetrical sensorineural hearing loss (Acute) Medical History UTI (urinary tract infection), uncomplicated Prolapse of vaginal wall Onychomycosis right great toe 2021 Insomnia History of basal cell cancer MATT on CPAP PTSD (post-traumatic stress disorder) Vitamin D deficiency (10/18/15) Rosacea Primary fibromyalgia syndrome Nephrolithiasis Ureteroscopy 2003 Migraine Surgical History Status post cystoscopy Status post cholecystectomy Status post breast biopsy History of unilateral oophorectomy H/O excision of mass (~03/22/19) Skin lesion excision on the LLE History of esophagogastroduodenoscopy (EGD) (06/14/18) dr escamilla, mild gastropathy H/O colonoscopy (06/14/18) dr escamilla, no abnormalities, repeat in ten years Oophrectomy, Left (~04/2012[place] [facility] [place] Family History Mother Breast cancer >50yrs Hyperlipidemia Hypertension Thyroid disease History of venous thromboembolism Paternal Grandmother Breast cancer >50yrs Social History Smoking/Tobacco Use Status: Never Second Hand Exposure: No Smoking risk assessment performed?: Yes Alcohol Intake: never Drug use: Never Substance use type: does not use Adopted: No Caregiver/Support person: No Household members: spouse and children Housing: house Number of Children: 3 Communication Needs: Hard of Hearing Education Level: college Do you need help understanding health information?: Never current occupation: RETIRED Pets and animals: Yes Pets and animals: cat(s) Sexually active: No Do you think of yourself as: straight/heterosexual Current gender identity: female What is your relationship status?: How often do you talk on the phone with friends or family?: decline to answer How often do you get together with friends or relatives?: decline to answer How often do you attend scientology or pentecostal services?: decline to answer Do you belong to any clubs or organized social groups?: no Panel score (0-1 are the most socially isolated patients): 1 What type of physical activity do you participate in: none Mary/Mormon: Non roman catholic Seatbelt use: always Helmet use: No Drive intox or ride w/intox 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 Domingo,RN 06/07/23 Female Reproductive History Menstrual Age of Menarche: 13 Menopause type: natural History History 3 Para 3 Hx # Term Pregnancies 3 Multiple births Hx # Pregnancies Ectopic pregnancies AB induced Hx Number of Living Children 3 AB spontaneous
[2023-10-27 21:19] LABS: ALT 28 U/L (14-59); AST 16 U/L (15-37); Albumin 3.8 g/dL (3.4-5.0); Alkaline Phosphatase 131 U/L (46-116); Anion Gap 12.7 mmol/L (3-11); BUN 17 mg/dL (7-18); Bilirubin, Total 0.5 mg/dL (0.2-1.0); CO2 23.3 mmol/L (21.0-32.0); CREATININE 1.7 mg/dL (0.55-1.02); Calcium 9.6 mg/dL (8.5-10.1); Chloride 103 mmol/L (98-107); Estimated GFR 33.49 (mL/min/1.73m2); Glucose 161 mg/dL (74-106); Lipase 33 U/L (16-77); Magnesium 1.9 mg/dL (1.8-2.4); Potassium 4.2 mmol/L (3.5-5.1); Sodium 139 mmol/L (136-145); TSH (W/Ref FT4) 5.58 uIU/mL (0.36-3.74); Total Protein 8.4 g/dL (6.4-8.2)
--- NOTE | 2023-10-27 21:30 | DI.CT_ITS ---
Exam(s) CT ABDOMEN PELVIS WO EXAM: CT ABDOMEN PELVIS WO CLINICAL HISTORY: diffuse abdominal pain, vomiting, diarrhea. TECHNIQUE: Imaging Protocol: Axial computed tomography images with coronal and sagittal reformatted images were created and reviewed. COMPARISON: CT CT RENAL COLIC WO from 04/08/[address] ABDOMEN PELVIS WO from 06/07/2023 FINDINGS: ABDOMEN: Lung Bases: Normal where visualized. Liver: Normal density. No measurable mass. Gallbladder and biliary tract: Status post cholecystectomy. No significant biliary ductal dilatation . Bile duct size is consistent with the post cholecystectomy state. Pancreas: Normal density, no abnormal calcifications or inflammatory process. Spleen: Normal. Calcified granuloma. Kidneys: Normal size, contour and axis.No radiodense stones or obstructive uropathy. Stable left buck l cyst. No follow-up is recommended. Adrenal glands: Stable mild nodularity of the left adrenal gland. No follow-up is recommended. The right adrenal gland is unremarkable. Lymph nodes: Within normal limits. Abdominal Aorta: Abdominal portion non-dilated. Mild atherosclerotic calcification. PELVIS: Bladder:Symmetric distention, no gross wall thickening. Bowel: Colonic diverticulosis without evidence of acute diverticulitis. There are fluid-filled loops small and large bowel which can be seen with a diarrheal illness. There is no bowel wall thickening or obstruction. The cecum lies transversely and is located in the left abdomen. No evidence of grecia endicitis. Peritoneal cavity: No ascites, collection or mesenteric inflammatory response. No free air. Reproductive organs: Stable size of the 4 cm left adnexal mass. (Series 3, image 705). Bones: Within normal limits. Soft Tissues: Bilateral fat containing inguinal hernias. IMPRESSION: 1. No acute abdominal pelvic process. 2. Stable findings in the abdomen and pelvis as described above. RADIATION DOSE DELIVERED: Total DLP DATA REPOSITORY: All CT scans at this facility are submitted to the National Radiology Data Registry (NRDR) Dose Index Registry (DIR) with the [employer] (ACR). RADIATION OPTIMIZATION: All CT scans at this facility use at least one of these dose optimization te chniques: automated exposure control; mA and/or kV adjustment per patient size (includes targeted exa ms where dose is matched to clinical indication); or iterative reconstruction.
[2023-10-27] MEDS: ACETAMINOPHEN 1,000 MG/100 ML BTL 400 MG IVPB (21:42)
--- NOTE | 2023-10-27 22:47 | DI.VRAD_ITS ---
PROCEDURE INFORMATION: Exam: CT Abdomen And Pelvis Without Contrast Exam date and time: 10/27/2023 10:10 PM Age: 63 years old Clinical indication: Other: Diffuse abdominal pain, vomiting, diarrhea TECHNIQUE: Imaging protocol: Computed tomography of the abdomen and pelvis without contrast. COMPARISON: MR PELVIS WO/W 07/02/2023 1:45 PM FINDINGS: Liver: Hepatic steatosis. Gallbladder and bile ducts: Status post cholecystectomy. Pancreas: Normal. No ductal dilation. Spleen: Normal. No splenomegaly. Adrenal glands: 15 mm left adrenal adenoma versus myelolipoma. Kidneys and ureters: Normal. No hydronephrosis. Stomach and bowel: Colonic diverticula. No bowel obstruction. Appendix: No evidence of appendicitis. Intraperitoneal space: Unremarkable. No free air. No significant fluid collection. Vasculature: Unremarkable. No abdominal aortic aneurysm. Lymph nodes: Unremarkable. No enlarged lymph nodes. Urinary bladder: Unremarkable as visualized. Reproductive: Unremarkable as visualized. Bones/joints: Unremarkable. No acute fracture. Soft tissues: Fat containing bilateral inguinal hernias. IMPRESSION: No acute finding. Dictated and Authenticated by: Jorje De León MD. Ordering:MONTANA Parada MD
[2023-10-27 22:59] LABS: FREE T4 0.88 ng/dL (0.76-1.46)
[2023-10-27 23:39] VITALS: O2SAT 96
[2023-10-27 23:40] VITALS: O2SAT 91
[2023-10-27 23:41] VITALS: BP 149/100; PULSE 113
== END 2023-10-27 23:44 | disposition home or self-care (01) ==
PROVIDERS: Emergency Provider Student in an Organized Health Care Education/Training Program; PCP Nurse Practitioner Family
DX: R19.7 Diarrhea, unspecified (principal); R11.2 Nausea with vomiting, unspecified; E86.0 Dehydration; R10.9 Unspecified abdominal pain
CPT/HCPCS: 80053; 83690; 96361; 96374; 99284; 74176; 83735; 84439; 84443; 85025; J0131

== ENCOUNTER → 2023-12-09 00:31 | Outpatient (CLI) | payer MEDICAID, SELFPAY ==
--- NOTE | 2023-12-09 | DI.DEXA_ITS ---
Exam(s) XR DEXA BONE DENSITY W/WO MAGALIS EXAM: XR DEXA BONE DENSITY W/WO MAGALIS CLINICAL HISTORY: E21.3 Hyperparathyroidism TECHNIQUE: COMPARISON: No exams were available for comparison FINDINGS: Lateral Spine Image: Unremarkable. No compression deformities identified. Left hip: Total T-Score: -0.1 Total Z-Score: 1.0 T- and Z-scores: There is no evidence of osteoporosis. Lumbar Spine: Total T-Score: 0.5 Total Z-Score: 2.1 T- and Z-scores: No evidence of osteoporosis. IMPRESSION: No evidence of osteoporosis.
== END ==
PROVIDERS: PCP Nurse Practitioner Family; Visit Provider Internal Medicine Nephrology
DX: Z13.820 Encounter for screening for osteoporosis (principal); E21.3 Hyperparathyroidism, unspecified
CPT/HCPCS: 77080

== ENCOUNTER 2024-01-14 12:45 | Outpatient (REF) | payer MEDICAID, SELFPAY ==
[2024-01-15 09:38] LABS: Calcium Urine 6.5 mg/dL (See Note); Calcium Urine 24 hr 59 mg/24hr (100-300); Timed Urine Volume 900 mL
== END 2024-01-14 12:46 | disposition home or self-care (01) ==
LOC: LBN 12:45
PROVIDERS: PCP Nurse Practitioner Family; Visit Provider Surgery
DX: E21.0 Primary hyperparathyroidism (principal); E11.9 Type 2 diabetes mellitus without complications; I10 Essential (primary) hypertension; N18.30 Chronic kidney disease, stage 3 unspecified
CPT/HCPCS: 81050; 82340

== ENCOUNTER → 2024-01-31 03:17 | Outpatient (CLI) | payer MEDICAID, SELFPAY ==
--- NOTE | 2024-01-31 | DI.US_ITS ---
APPROVED REPORT EXAM: Comprehensive 2D, Doppler, and color-flow Echocardiogram Patient Location: Out-Patient Law Examiner: Kim Ibrahim RDCS (AE) Indications: Tachycardia Other Information Study Quality: Adequate Conclusion Normal left ventricular wall thickness and chamber size. Ejection fraction is 55 to 60%. Wall motio n is normal Normal right ventricular size and function Both atria are normal in size There is no structural or hemodynamically significant valvular disease Ascending aorta measures 3.3 cm Wall motion Left Ventricle The left ventricle is normal size. The left ventricular systolic function is normal. The left ventric ular ejection fraction is within the normal range. There is normal left ventricular wall thickness. T here is normal LV segmental wall motion. There is no ventricular septal defect visualized. LVEF is 57 %. Right Ventricle The right ventricle is normal size. The right ventricular systolic function is normal. Atria The left atrium size is normal. The right atrium size is normal. The interatrial septum is intact wit h no evidence for an atrial septal defect. Aortic Valve The aortic valve is normal in structure. Aortic valve is trileaflet. There is no aortic valvular sten osis. No aortic regurgitation is present. Mitral Valve The mitral valve is normal in structure. No evidence of mitral valve stenosis. Trace mitral regurgita tion. Tricuspid Valve The tricuspid valve is normal in structure. There is no tricuspid valve stenosis. Trace tricuspid reg urgitation. Unable to assess PA pressure. Pulmonic Valve The pulmonary valve is normal in structure. There is no pulmonic valvular stenosis. There is no pulmo cristian valvular regurgitation. Great Vessels The aortic root is normal in size. The ascending aorta is mildly dilated. Aortic arch is not well vis ualized. IVC is normal in size and collapses >50% with inspiration. Pericardium There is no pericardial effusion. 2D Dimensions IVSD d PLAX 0.90 cm F: 0.6-1.0 Ao Root d 2.99 cm F: 2.7 - 3.3 LVPW d PLAX 0.94 cm F: 0.6 - 1.0 Ao Asc Diam d 3.30 cm F: 2.3 - 3.1 LVID d PLAX 4.57 cm F: 3.8 - 5.2 LVDs 3.16 cm F: 2.2 - 3.5 LV EF Teichholz 58.5 % FS 30.81 % LV EDV (Teich) 95.9 mL LV ESV (Teich) 39.8 mL M-Mode TAPSE 1.95 cm (M/F) >1.7 Auto EF LV EDV A4C 91.5 mL LV EDV A2C 84.0 mL LV EDV BP 88.8 mL LV ESV A4C 40.2 mL LV ESV A2C 36.2 mL LV ESV BP 37.6 mL LVEF(%) A4C 56.0 % LVEF(%) A2C 56.9 % LVEF(%) BP 57.6 % LV SV A4C 51.3 ml LV SV A2C 47.8 ml LV SV BP 51.2 ml LV CO A4C 4.0 L/min LV CO A2C 3.8 L/min LV CO BP 3.9 L/min HR A4C 78.58 BPM HR A2C 80.18 BPM LV EDV Index (BP) LA Volume LA Length A4C 5.2 cm LA Length A2C 4.8 cm LA Area A4C s 14.96 cm2 LA Area A2C s 16.79 cm2 LA Vol A4C A-L 36.24 mL LA Vol A2C A-L 49.48 mL LA Vol Biplane A-L 44.1 mL LA Vol/BSA A4C A-L LA Vol/BSA A2C A-L LA Vol/BSA BP A-L 22.6 mL/m2 LA Vol A4C MOD 33.2 mL LA Vol A2C MOD 47.2 mL LA Vol BP MOD 41.1 mL RA Volume RA Area A4C 11.1 cm2 RA ESV A4C (A-L) 23.0mL RA Vol/BSA A4C A-L RA Length A4C 4.6 cm RA ESV A4C (MOD) 21.5mL LV Diastology MV E' medial 0.077 (>0.07 m/s) MV E Vmax 0.99 (0.4-1.3 m/s) MV E/E' MED 12.85 (<14) MV A Vmax 1.05 (0.4-1.3 m/s) MV E' lateral 0.089 (>0.1 m/s) E/A Ratio 0.9 MV E/E' LAT 11.07 (<14) MV E' Average 0.083 m/s MV E/E'(average) 11.90 Aortic Valve AoV Vmax 1.33 m/s LVOT Vmax 1.04 m/s AoV Peak Grad 7.1 mmHg LVOT Peak Grad 4.3 mmHg AoV Area (Vmax) 2.16 cm2 LVOT VTI 0.221 m AoV VTI 0.306 m LVOT Mean Grad 2.3 mmHg AoV Mean Arian. 0.98 m/s LVOT SV 60.78 mL AoV Mean Grad 4.3 mmHg LVOT Diam s 1.85 cm AoV Area (VTI) 1.99 cm2 Velocity Ratio 0.78 Mitral Valve MV DT 179 (160-240 msec) MV Vmax TIPS 1.15 m/s MV Mean Grad 2.8 (<2mmHg) MV VTI 0.291 m Pulmonary Valve PV Vmax 0.93 (0.5-1.5 m/s) RVOT Vmax 0.73 m/s PV Peak Grad 3.5 mmHg RVOT Peak Gr. 2.1 mmHg PV Mean Arian 0.78 m/s RVOT VTI 0.156 m PV Mean Grad 2.5 mmHg RVOT Mean Gr. 1.2 mmHg Tricuspid Valve TV S' 0.10 m/s
== END ==
PROVIDERS: PCP Nurse Practitioner Family; Visit Provider Internal Medicine Nephrology
DX: I47.29 Other ventricular tachycardia (principal)
CPT/HCPCS: 93306

== ENCOUNTER 2024-02-01 09:39 | Outpatient (REF) | payer MEDICAID, SELFPAY | END 2024-02-01 09:40 | disposition home or self-care (01) | LOC: LBN 09:39 | PROVIDERS: PCP Nurse Practitioner Family; Visit Provider Nurse Practitioner Family | DX: R30.0 Dysuria (principal) | CPT/HCPCS: 87086 ==

== ENCOUNTER 2024-03-30 10:19 | Outpatient (CLI) | payer MEDICAID, SELFPAY ==
--- NOTE | 2024-03-30 10:15 | RT.EKG_ITS ---
APPROVED REPORT Exam: Resting ECG Reason for Exam: elevated pulse Patient Location: O HR:89 bpm ECG Measurements Heart Rate 89 AXIS MS 151 P 42 QRSd 90 QRS 49 QT 371 T 38 QTc 452 Conclusion Sinus rhythm...normal P axis, V-rate 50- 99 Low voltage, precordial leads...precordial leads <1.0mV Otherwise normal ECG
== END 2024-03-30 10:20 | disposition home or self-care (01) ==
PROVIDERS: PCP Nurse Practitioner Family; Visit Provider Nurse Practitioner Family
DX: R00.0 Tachycardia, unspecified (principal)
CPT/HCPCS: 93005; 93010

== ENCOUNTER 2024-05-01 15:01 | Outpatient (REF) | payer MEDICAID, SELFPAY | END 2024-05-01 15:02 | disposition home or self-care (01) | LOC: LBN 15:01 | PROVIDERS: PCP Nurse Practitioner Family; Visit Provider Obstetrics & Gynecology | DX: R30.0 Dysuria (principal); M62.89 Other specified disorders of muscle | CPT/HCPCS: 87086 ==

== ENCOUNTER 2024-05-21 13:19 | Emergency (ER) | payer MEDICAID, SELFPAY ==
[2024-05-21 13:25] VITALS: BP 173/104; PULSE 122; RESP 14; TEMP 36.9; O2SAT 96
--- NOTE | 2024-05-21 14:00 | DI.CT_ITS ---
Exam(s) CT ABDOMEN PELVIS W EXAM: CT ABDOMEN PELVIS W CLINICAL HISTORY: Diffuse abd pain with diarrhea, guarding TECHNIQUE: Imaging Protocol: Axial computed tomography images with coronal and sagittal reformatted images were created and reviewed. CONTRAST MATERIAL: Intravenous: Omnipaque 350 Contrast volume:80 mL Oral: No COMPARISON: CT CT ABDOMEN PELVIS WO from 06/07/[address] ABDOMEN PELVIS WO from 10/27/2023 FINDINGS: ABDOMEN: Lung Bases: Normal where visualized. Liver: There is diffuse decreased attenuation of the liver consistent with fatty infiltration. No me asurable mass. Portal, Superior Mesenteric, and Splenic Veins: Unremarkable. Gallbladder and Biliary Tract: Status post cholecystectomy. No significant biliary ductal dilatation . Pancreas: Normal density, no abnormal calcifications or inflammatory process. Spleen: Normal. Adrenals: There is stable nodularity of the left adrenal gland. The right adrenal gland is unremarka ble. Kidneys: Normal size, contour and axis. No radiodense stones or obstructive uropathy. There is a stab le cyst on the left kidney. Abdominal Aorta: Abdominal portion non-dilated. Bowel: There is diverticulosis in the colon but no evidence of acute diverticulitis. The cecum is ag ain shown to have a transverse orientation with the normal-appearing appendix seen centrally. No bow el wall thickening is seen. No bowel obstruction is present. There is fluid seen in portions of the colon and small bowel can be seen with a diarrheal illness. Peritoneal Cavity: No ascites, collection or mesenteric inflammatory response. No free air. Lymph Nodes: Within normal limits. Bones: Within normal limits for the patient's age. Soft Tissues: There are bilateral fat containing inguinal hernias. PELVIS: Bladder: Symmetric distention, no gross wall thickening. Reproductive Organs: Unremarkable as visualized. Lymph Nodes: Within normal limits. Bones: Within normal limits for the patient's age. IMPRESSION: 1. No acute abdominal or pelvic process. 2. There is fluid seen in portions of the colon and small bowel which can be seen with a diarrheal il lness. RADIATION DOSE DELIVERED: 637.43mGy.cm Total DLP DATA REPOSITORY: All CT scans at this facility are submitted to the National Radiology Data Registry (NRDR) Dose Index Registry (DIR) with the [employer] (A[employer]). RADIATION OPTIMIZATION: All CT scans at this facility use at least one of these dose optimization te chniques: automated exposure control; mA and/or kV adjustment per patient size (includes targeted exa ms where dose is matched to clinical indication); or iterative reconstruction.
[2024-05-21 14:06] LABS: Abs Immature Grans 0.03 10^3/uL (0.0-0.06); Absolute Basophil Count 0.02 10^3/uL (0.0-0.2); Absolute Eosinophil Count 0.35 10^3/uL (0.0-0.7); Absolute Lymphocyte Count 2.37 10^3/uL (1.2-3.4); Absolute Monocyte Count 0.41 10^3/uL (0.1-0.8); Absolute Neutrophil Count 7.42 10^3/uL (1.2-6.7); Basophils % 0.2 %; Eosinophils % 3.3 %; HCT 43.5 % (36.0-46.0); HGB 13.8 g/dL (11.2-15.7); Immature Grans % 0.3 %; Lactate 1.1 mmol/L (0.6-1.4); Lymphocytes % 22.4 %; MCH 30.9 pg (27.0-33.0); MCHC 31.7 % (32.0-36.0); MCV 98 fL (80-95); MPV 9.4 fL (8.0-11.0); Monocytes % 3.9 %; Neutrophils % 69.9 %; Platelet Count 373 10^3/uL (130-400); RBC 4.46 10^6/uL (3.93-5.22); RDW 12.9 % (11.7-14.6); RDW-SD 46.5 fL
[2024-05-21] MEDS: Ondansetron 4 MG/2 ML VIAL IVP ×2 (14:20→15:51)
[2024-05-21] MEDS: HYDROmorphone 2 MG/ML SYR 0.5 MG IVP ×2 (14:25→15:50)
[2024-05-21 14:28] LABS: ALT 26 U/L (14-59); AST 14 U/L (15-37); Albumin 3.6 g/dL (3.4-5.0); Alkaline Phosphatase 131 U/L (46-116); BUN 15 mg/dL (7-18); Bilirubin, Total 0.32 mg/dL (0.2-1.0); CREATININE 1.5 mg/dL (0.55-1.02); Calcium 9.4 mg/dL (8.5-10.1); Chloride 107 mmol/L (98-107); Estimated GFR 38.91 (mL/min/1.73m2); Glucose 163 mg/dL (74-106); Lipase 110 U/L (16-77); Magnesium 1.6 mg/dL (1.8-2.4); Potassium 4.2 mmol/L (3.5-5.1); Sodium 142 mmol/L (136-145); Troponin I 4 ng/L (<or=51)
--- NOTE | 2024-05-21 14:49 | W.ED.GENAD ---
Discharge Plan Disposition Patient Disposition: Home Condition: Stable Discharge Details Chief Complaint: Abd Prob Clinical Impression: Nausea vomiting and diarrhea, Gastroesophageal reflux disease, Hypothyroidism, Diabetes, Chronic kidney disease, stage 3, Essential hypertension Primary Care Provider: Nancy Cabrera ED Provider: Melanie Raya Home Meds and New Rx's Prescriptions: No Action omeprazole 20 mg capsule,delayed release(DR/EC) 20 mg PO DAILY PRN Patient Comments: pt. takes ranitidine now ondansetron HCl 4 mg tablet 4 mg PO Q8H PRN (Reason: nausea and vomiting) Qty: 60 0RF lamotrigine 100 mg tablet 200 mg PO DAILY montelukast 10 mg tablet 10 mg PO QHS Qty: 90 1RF albuterol sulfate 90 mcg/actuation HFA aerosol inhaler 2 inh inhalation Q4H PRN (Reason: shortness of breath or wheezing) Qty: 18 1RF (DME) Aerochamber MV Spacer See Rx Instructions .Route Qty: 1 0RF Rx Instructions: As directed bupropion HCl [Wellbutrin XL] 150 mg tablet extended release 24 hr 150 mg PO QAM Qty: 90 3RF cholecalciferol (vitamin D3) 25 mcg (1,000 unit) tablet 2,000 unit PO DAILY Qty: 90 duloxetine [Cymbalta] 60 mg capsule,delayed release(DR/EC) 60 mg PO DAILY Qty: 90 allopurinol 200 mg tablet 200 mg PO DAILY Qty: 90 3RF quetiapine 100 mg tablet 150 mg PO HS levothyroxine [Synthroid] 100 mcg tablet 100 mcg PO DAILY Qty: 90 3RF amlodipine 10 mg tablet 10 mg PO DAILY Qty: 90 3RF lisinopril 30 mg tablet See Rx Instructions .ROUTE .COMPLEX Qty: 90 4RF Dose Instruction: TAKE ONE TABLET BY MOUTH EVERY DAY Rx Instructions: TAKE ONE TABLET BY MOUTH EVERY DAY clonazepam 0.5 mg tablet 0.5 mg PO BID PRN (Reason: sleep or anxiety) Qty: 60 0RF acetaminophen [Tylenol] 325 mg tablet 650 mg PO Q6H PRN (Reason: pain) Qty: 30 0RF Discharge Instructions Instructions: Nausea and Vomiting, Adult ED Additional Instructions: You are seen in the emergency department today for evaluation of nausea with vomiting and diarrhea. In our department a full physical examination performed, had laboratory studies that were reassuring and had a CT scan that did not show any severe abnormalities to account for your symptoms. You likely have a diarrheal illness which is usually caused by a bacteria or virus. You should continue to use [id number] medications including Tylenol, Pepto-Bismol or Maalox. Please continue all your home medications, and I provided you with a short course of Zofran and morphine for symptomatic management of pain and nausea. You need to follow-up with your primary care provider in the next few days to discuss next steps in management, because if you have persistent diarrhea, if your diarrhea turns bloody, or if you have a change or worsening in your abdominal pain you will need further workup and management at that time. You knowledge return to the emergency department with any concerns. Thank you for allowing us to be part of your care. HPI General Date/Time Provider Initiated Documentation: 05/21/24 13:33. Limitations to Documentation: no limitations. Information obtained by: patient and old records reviewed. HPI Narrative: HPI: This is a 63-year-old female patient with a past medical history significant for CKD, hypertension, GERD, and diabetes who is presenting for evaluation of nausea and diarrhea. The patient reports that for the last 3 days she has had abdominal cramping, nausea without vomiting, and has had liquid diarrhea, numerous episodes per day. Her also became sick last night with a diarrheal illness. She reports that her pain is located generally throughout her abdomen and epigastric region, and has not responded to Tylenol, Imodium, or pantoprazole taken in the outpatient environment. The patient has a history of gallbladder surgery as well as surgical removal of her ovaries. She is not experiencing any urinary tract symptoms, has not had fever at home. She has been able to eat and drink but it causes worsening of her stomach pain. Exam: Gen: Awake and alert, in no apparent distress HEENT: Non-icteric sclera Neck: Supple Lungs: No apparent respiratory distress, normal respiratory effort. CV: Appears well perfused, heart with regular rate and rhythm, strong distal pulses Abdomen: Non-distended, soft, tender to palpation in a generalized distribution with guarding, no rebound or rigidity MSK: Moves 4 extremities without apparent limitation in ROM Skin: Visualized skin without rashes, cyanosis. Neuro: Normal Gait, no obvious focal deficits or facial asymmetry. Speaks in full, clear sentences. Psych: Appropriate for situation. MDM: This is a 63-year-old female patient presenting for evaluation of abdominal pain with nausea and diarrhea. Differential includes but is not limited to gastroenteritis, gastritis/peptic ulcer disease, pancreatitis, hepatitis, bowel obstruction, mesenteric ischemia was considered, as well as diverticulitis and appendicitis. I considered metabolic electrolyte derangements, kidney injury and dehydration. I considered medication effects, liver disease, patient's history and physical are less concerning for aortic pathology. I did consider mesenteric ischemia in this patient, but the diarrhea has no blood in it. The patient was mildly tachycardic on initial assessment but this decreased appropriately when she was resting in her room. I will provide her with a liter of IV fluids, Zofran and Dilaudid for symptomatic management of pain, and obtain laboratory studies to include CBC, CMP, lipase, troponin. We will proceed with CT abdomen pelvis to better characterize any abnormalities. ED Course: I independently interpreted the laboratory studies, which show no significant leukocytosis, anemia, or thrombocytopenia. The chemistry panel is without evidence of electrolyte abnormality, new kidney dysfunction, or liver injury. Lipase is mildly elevated to 110 but is below 3 times the upper limit of normal that would be concerning for pancreatitis. CT imaging independently interpreted by myself, showing no severe intra-abdominal abnormalities to account for her symptoms, but demonstrating a fluid-filled colon concerning for diarrheal disease. Nondilated abdominal aorta, and the patient's lactate was 1.1, making mesenteric ischemia highly unlikely. Regarding diarrheal illness the patient has had no recent antibiotic use, travel or exposure to unclean water or food sources. She was counseled on conservative management, and is already taking a PPI to prevent any sequelae from gastritis or PUD. I did provide the patient with an additional dose of pain and nausea medicine and after that the patient was able to tolerate p.o. intake to the point where I am reassured that she will be able to maintain her hydration in the outpatient environment. I discussed follow-up with her primary care provider for reassessment, she may require stool testing if she develops bloody diarrhea or has persistence of pain and symptoms for more than 5 to 7 days. I discussed continuing wwiw-szw-tgtawre management of her symptoms and have provided her with a short course of Zofran and oral immediate release morphine for breakthrough pain and nausea. At this time, the patient has had a full medical evaluation and is safe for discharge to home. They are hemodynamically stable, ambulatory, and tolerating PO. They are understanding of the follow-up plan and return precautions. They left our facility without incident. Melanie Raya MD Related Data Home Medications ?Medication ?Instructions ?Recorded ?Confirmed acetaminophen 325 mg tablet 650 mg (2 x 325 mg) PO Q6H PRN 03/22/19 05/21/24 (Tylenol) pain #30 tabs cholecalciferol (vitamin D3) 25 2,000 unit PO DAILY #90 tabs 10/13/19 05/21/24 mcg (1,000 unit) tablet omeprazole 20 mg capsule,delayed 20 mg PO DAILY PRN 05/17/20 05/21/24 release duloxetine 60 mg capsule,delayed 60 mg PO DAILY #90 tab-caps 05/08/22 05/21/24 release (Cymbalta) ondansetron HCl 4 mg tablet 4 mg PO Q8H PRN nausea and 10/09/22 05/21/24 vomiting #60 tabs allopurinol 200 mg tablet 200 mg PO DAILY #90 tabs 06/10/23 05/21/24 quetiapine 100 mg tablet 150 mg PO HS 06/22/23 05/21/24 albuterol sulfate 90 mcg/actuation 2 inh inhalation Q4H PRN shortness 07/13/23 05/21/24 aerosol inhaler of breath or wheezing #18 grams inhalational spacing device #1 ea 07/13/23 05/21/24 (Aerochamber MV spacer) montelukast 10 mg tablet 10 mg PO QHS #90 tabs 07/13/23 05/21/24 levothyroxine 100 mcg tablet 100 mcg PO DAILY #90 tab-caps 10/04/23 05/21/24 (Synthroid) bupropion HCl 150 mg 24 hr tablet, 150 mg PO QAM #90 tabs 11/11/23 05/21/24 extended release (Wellbutrin XL) lamotrigine 100 mg tablet 200 mg PO DAILY 12/02/23 05/21/24 amlodipine 10 mg tablet 10 mg PO DAILY #90 tabs 02/01/24 05/21/24 lisinopril 30 mg tablet See Rx Instructions .Route 02/01/24 05/21/24 .COMPLEX #90 tabs clonazepam 0.5 mg tablet 0.5 mg PO BID PRN sleep or anxiety 05/11/24 05/21/24 #60 tabs Previous Rx's ?Medication ?Instructions ?Recorded acetaminophen 325 mg tablet 650 mg (2 x 325 mg) PO Q6H PRN 03/22/19 (Tylenol) pain #30 tabs ondansetron HCl 4 mg tablet 4 mg PO Q8H PRN nausea and 10/09/22 vomiting #60 tabs allopurinol 200 mg tablet 200 mg PO DAILY #90 tabs 06/10/23 albuterol sulfate 90 mcg/actuation 2 inh inhalation Q4H PRN shortness 07/13/23 aerosol inhaler of breath or wheezing #18 grams inhalational spacing device #1 ea 07/13/23 (Aerochamber MV spacer) montelukast 10 mg tablet 10 mg PO QHS #90 tabs 07/13/23 levothyroxine 100 mcg tablet 100 mcg PO DAILY #90 tab-caps 10/04/23 (Synthroid) bupropion HCl 150 mg 24 hr tablet, 150 mg PO QAM #90 tabs 11/11/23 extended release (Wellbutrin XL) amlodipine 10 mg tablet 10 mg PO DAILY #90 tabs 02/01/24 lisinopril 30 mg tablet See Rx Instructions .Route 02/01/24 .COMPLEX #90 tabs clonazepam 0.5 mg tablet 0.5 mg PO BID PRN sleep or anxiety 05/11/24 #60 tabs Allergies Allergy/AdvReac Type Severity Reaction Status Date / Time lactose AdvReac Intermediate Diarrhea Verified 05/21/24 13:28 ziprasidone HCl (From Geodon) AdvReac Intermediate leg pain, Verified 05/21/24 13:28 couldn't sit still ziprasidone mesylate (From AdvReac Intermediate leg pain, Verified 05/21/24 13:28 Geodon) couldn't sit still amoxicillin (Amoxicillin) AdvReac GI upset Verified 05/21/24 13:28 Metronidazole HCl (From AdvReac GI UPSET Verified 05/21/24 13:28 Flagyl) General Stated Complaint: Abd Prob MAYRA: 3 Course Vital Signs Vital signs: Vital Signs Temperature 36.9 C 05/21/24 13:25 Pulse 122 H 05/21/24 13:25 Respiratory Rate 14 05/21/24 13:25 Blood Pressure 173/104 H 05/21/24 13:25 Pulse Oximetry 96 05/21/24 13:25 Temperature 36.9 C 05/21/24 13:25 Temperature Source Oral 05/21/24 13:25 Pulse 122 H 05/21/24 13:25 Respiratory Rate 14 05/21/24 13:25 Blood Pressure 173/104 H 05/21/24 13:25 Blood Pressure Position Sitting 05/21/24 13:25 Pulse Oximetry 96 05/21/24 13:25 Oxygen Delivery Method Room Air 05/21/24 13:25 Oxygen Flow Rate 0 05/21/24 13:25 Pain Level 8 05/21/24 13:25 Lab/Test Results Lab/Test Results: Laboratory Tests Range/Units 05/21/24 05/21/24 05/21/24 13:56 14:42 16:42 WBC (4.4-10.8) 10^3/uL 10.60 RBC (3.93-5.22) 10^6/uL 4.46 Hgb (11.2-15.7) g/dL 13.8 Hct (36.0-46.0) % 43.5 MCV (80-95) fL 98 H MCH (27.0-33.0) pg 30.9 MCHC (32.0-36.0) % 31.7 L RDW (11.7-14.6) % 12.9 Plt Count (130-400) 10^3/uL 373 MPV (8.0-11.0) fL 9.4 Immature Gran % % 0.3 Neutrophils % % 69.9 Lymphocytes % % 22.4 Monocytes % % 3.9 Eosinophils % % 3.3 Basophils % % 0.2 Nucleated RBC % (0.0-0.3) % 0.0 Absolute Neutrophils (1.2-6.7) 10^3/uL 7.42 H Absolute Lymphocytes (1.2-3.4) 10^3/uL 2.37 Absolute Monocytes (0.1-0.8) 10^3/uL 0.41 Absolute Eosinophils (0.0-0.7) 10^3/uL 0.35 Absolute Basophils (0.0-0.2) 10^3/uL 0.02 VBG Lactate (0.6-1.4) mmol/L 1.1 Sodium (136-145) mmol/L 142 Potassium (3.5-5.1) mmol/L 4.2 Chloride (98-107) mmol/L 107 Carbon Dioxide (21.0-32.0) mmol/L 25.0 Anion Gap (3-11) mmol/L 10.0 BUN (7-18) mg/dL 15 Creatinine (0.55-1.02) mg/dL 1.5 H Est GFR (CKD-EPI 2020) (mL/min/1.73m2) 38.91 Glucose (74-106) mg/dL 163 H Calcium (8.5-10.1) mg/dL 9.4 Magnesium (1.8-2.4) mg/dL 1.6 L Total Bilirubin (0.2-1.0) mg/dL 0.32 AST (15-37) U/L 14 L ALT (14-59) U/L 26 Alkaline Phosphatase (46-116) U/L 131 H Troponin I (<or=51) ng/L 4 Cancelled Cancelled Total Protein (6.4-8.2) g/dL 8.0 Albumin (3.4-5.0) g/dL 3.6 Lipase (16-77) U/L 110 H Medical Decision Making Quality:SDOH Health Related Social Needs: Health related social needs inadequate housing(Z59.1) Health related social needs details NA [facility] All Active Problems (Updated 05/21/24 @ 16:51 by Melanie Raya MD) Nausea vomiting and diarrhea (Acute) Pelvic floor dysfunction in female (Acute) Tinnitus, bilateral (Acute) Hypothyroidism (Chronic 11/28/12) 2 nodules on the left side of the thyroid Allergies (Acute) Conjunctivitis (Acute) Adnexal mass (Acute) MRI on 07/02/23: 4.0 x 2.5 cm left adnexal mass Impacted cerumen, right ear (Acute) Anxiety (Chronic) Depressive disorder (Chronic) [place] [facility] [place] Essential hypertension (Chronic 08/21/13) Gastroesophageal reflux disease (Chronic) Refill her antireflux medications. Diabetes (Chronic) Gout (Chronic) Chronic kidney disease, stage 3 (Acute) Asymmetrical sensorineural hearing loss (Acute) Medical History UTI (urinary tract infection), uncomplicated Prolapse of vaginal wall Onychomycosis right great toe 2021 Insomnia History of basal cell cancer MATT on CPAP PTSD (post-traumatic stress disorder) Vitamin D deficiency (10/18/15) Rosacea Primary fibromyalgia syndrome Nephrolithiasis Ureteroscopy 2003 Migraine Surgical History Status post cystoscopy Status post cholecystectomy Status post breast biopsy History of unilateral oophorectomy H/O excision of mass (~03/22/19) Skin lesion excision on the LLE History of esophagogastroduodenoscopy (EGD) (06/14/18) dr escamilla, mild gastropathy H/O colonoscopy (06/14/18) dr escamilla, no abnormalities, repeat in ten years Oophrectomy, Left (~04/2012[place] [facility] [place] [place] Family History Mother Breast cancer >50yrs Hyperlipidemia Hypertension Thyroid disease History of venous thromboembolism Paternal Grandmother Breast cancer >50yrs Social History Smoking/Tobacco Use Status: Never Second Hand Exposure: No Smoking risk assessment performed?: Yes Alcohol Intake: never Drug use: Never Substance use type: does not use Adopted: No Caregiver/Support person: No Household members: spouse and children Housing: house Number of Children: 3 Communication Needs: Hard of Hearing Education Level: college Do you need help understanding health information?: Never current occupation: RETIRED Pets and animals: Yes Pets and animals: cat(s) Sexually active: No Do you think of yourself as: straight/heterosexual Current gender identity: female What is your relationship status?: How often do you talk on the phone with friends or family?: decline to answer How often do you get together with friends or relatives?: decline to answer How often do you attend bahai or scientologist services?: decline to answer Do you belong to any clubs or organized social groups?: no Panel score (0-1 are the most socially isolated patients): 1 What type of physical activity do you participate in: none Mary/Gnosticism: Non restoration Seatbelt use: always Helmet use: No Drive intox or ride w/intox rolloff driver: No Firearms in home: No In current or past relationships, have you been: other Do you feel safe at home: No Do you feel safe in your relationship?: No Victim of physical abuse: No Victim of emotional abuse: No Victim of sexual abuse: No Additional Social history: when asked about feeling safe at home patient said Ill just say yes This RN offered resources patient said she would accept them if given. Domingo,RN 06/07/23 Female Reproductive History Menstrual Age of Menarche: 13 Menopause type: natural History History 3 Para 3 Hx # Term Pregnancies 3 Multiple births Hx # Pregnancies Ectopic pregnancies AB induced Hx Number of Living Children 3 AB spontaneous
[2024-05-21] MEDS: Lactated Ringers 1,000 ML 1000 ML IV (14:55)
[2024-05-21] MEDS: Omnipaque 350 MG/ML 100 ML BTL IJ (14:58)
[2024-05-21] MEDS: Acetaminophen 500 MG TAB 1000 MG PO (15:49)
[2024-05-21 15:54] VITALS: BP 166/83; PULSE 98; RESP 18; TEMP 36.9; O2SAT 93
[2024-05-21] MEDS: Ondansetron O.D.T. 4 MG TABEF, 3 TABS/BTL PO (17:06)
[2024-05-21] MEDS: MORPHine IR 15 MG TAB, 4 TABS/BTL PO (17:06)
== END 2024-05-21 17:08 | disposition home or self-care (01) ==
PROVIDERS: Emergency Provider Emergency Medicine; PCP Nurse Practitioner Family
DX: R19.7 Diarrhea, unspecified (principal); R11.2 Nausea with vomiting, unspecified; E11.22 Type 2 diabetes mellitus with diabetic chronic kidney disease; I12.9 Hypertensive chronic kidney disease with stage 1 through stage 4 chronic kidney disease, or unspecified chronic kidney disease; N18.30 Chronic kidney disease, stage 3 unspecified; K21.9 Gastro-esophageal reflux disease without esophagitis; E03.9 Hypothyroidism, unspecified; Z90.49 Acquired absence of other specified parts of digestive tract
CPT/HCPCS: 80053; 83690; 96361; 96374; 96375; 96376; 99285; 74177; 83605; 83735; 84484; 85025; 99284; J1171; J2405; J3490

== ENCOUNTER 2024-07-28 01:49 | Outpatient (CLI) | payer MEDICAID, SELFPAY ==
[2024-07-28 10:40] LABS: Hemoglobin A1C 6.9 % (<5.7)
== END 2024-07-28 01:50 | disposition home or self-care (01) ==
PROVIDERS: PCP Nurse Practitioner Family; Visit Provider Nurse Practitioner Family
DX: E11.9 Type 2 diabetes mellitus without complications (principal); E27.9 Disorder of adrenal gland, unspecified
CPT/HCPCS: 36415; 82533; 83036

== ENCOUNTER 2024-08-05 13:36 | Emergency (ER) | payer MEDICARE, MEDICAID, SELFPAY ==
--- NOTE | 2024-08-05 13:30 | RT.EKG_ITS ---
APPROVED REPORT Exam: Resting ECG Reason for Exam: dizziness Patient Location: E HR:117 bpm ECG Measurements Heart Rate 117 AXIS [place] 147 P 33 QRSd 83 QRS 17 QT 315 T 41 QTc 440 Conclusion Sinus tachycardia...rate> 99 Low voltage, precordial leads...precordial leads <1.0mV Consider anterior infarct...Q >30mS in V2-V5 Physician: q wave in III present on prior ekg's. Mild lateral depressions. No Stemi
[2024-08-05 13:39] VITALS: BP 168/85; PULSE 113; RESP 18; TEMP 36.9; O2SAT 91
[2024-08-05 13:44] VITALS: BP 168/85; PULSE 113; RESP 18; TEMP 36.9; O2SAT 91
--- NOTE | 2024-08-05 14:00 | RT.EKG_ITS ---
APPROVED REPORT Exam: Resting ECG Reason for Exam: Nausea Patient Location: E HR:101 bpm ECG Measurements Heart Rate 101 AXIS W[place] 147 P 38 QRSd 88 QRS 38 QT 345 T 29 QTc 448 Conclusion Sinus tachycardia...rate> 99 Low voltage, precordial leads...precordial leads <1.0mV Narrow complex sinus tachycardia at a rate of 101. Low voltage. Normal axis. Poor R wave progress ion. No ST segment abnormalities. No T wave versions. Appears similar to prior.
[2024-08-05 14:03] VITALS: RESP 25
[2024-08-05 14:16] LABS: BE (Venous) 1 mmol/L (-2-3); HCO3 (Venous) 26 mmol/L (23-28); Lactate 1.6 mmol/L (0.6-1.4); O2 Sat (Venous) 71 %; TCO2 (Venous) 24 mmol/L (24-29); pCO2 (Venous) 47 mmHg (41-51); pH (Venous) 7.35 (7.31-7.41); pO2 (Venous) 38 mmHg
[2024-08-05 14:19] LABS: Abs Immature Grans 0.07 10^3/uL (0.0-0.06); Absolute Basophil Count 0.06 10^3/uL (0.0-0.2); Absolute Lymphocyte Count 1.92 10^3/uL (1.2-3.4); Absolute Monocyte Count 0.92 10^3/uL (0.1-0.8); Basophils % 0.3 %; Eosinophils % 5.1 %; HCT 45.2 % (36.0-46.0); HGB 14.3 g/dL (11.2-15.7); Immature Grans % 0.4 %; Lymphocytes % 10.3 %; MCH 30.5 pg (27.0-33.0); MCHC 31.6 % (32.0-36.0); MCV 96 fL (80-95); MPV 9.3 fL (8.0-11.0); Monocytes % 4.9 %; Platelet Count 413 10^3/uL (130-400); RBC 4.69 10^6/uL (3.93-5.22); RDW 13.9 % (11.7-14.6); WBC 18.68 10^3/uL (4.4-10.8)
[2024-08-05 14:20] LABS: Absolute Eosinophil Count 0.95 10^3/uL (0.0-0.7); Absolute Neutrophil Count 14.76 10^3/uL (1.2-6.7)
--- NOTE | 2024-08-05 14:21 | ED.GENADUL_ITS ---
Discharge Plan Disposition Patient Disposition: Home Discharge Details Clinical Impression: Diarrhea Primary Care Provider: Nancy Cabrera ED Provider: Nakul Sandoval [place] Meds and New Rx's Prescriptions: New ondansetron 4 mg tablet,disintegrating 4 mg PO BID 5 Days Qty: 10 0RF Continued omeprazole 20 mg capsule,delayed release(DR/EC) 20 mg PO DAILY PRN Patient Comments: pt. takes ranitidine now ondansetron HCl 4 mg tablet 4 mg PO Q8H PRN (Reason: nausea and vomiting) Qty: 60 0RF lamotrigine 100 mg tablet 200 mg PO DAILY montelukast 10 mg tablet 10 mg PO QHS Qty: 90 1RF albuterol sulfate 90 mcg/actuation HFA aerosol inhaler 2 inh inhalation Q4H PRN (Reason: shortness of breath or wheezing) Qty: 18 1RF (DME) Aerochamber MV Spacer See Rx Instructions .Route Qty: 1 0RF Rx Instructions: As directed bupropion HCl [Wellbutrin XL] 150 mg tablet extended release 24 hr 150 mg PO QAM Qty: 90 3RF aripiprazole [Abilify] 5 mg tablet 5 mg PO DAILY Qty: 90 3RF cholecalciferol (vitamin D3) 25 mcg (1,000 unit) tablet 2,000 unit PO DAILY Qty: 90 duloxetine [Cymbalta] 60 mg capsule,delayed release(DR/EC) 60 mg PO DAILY Qty: 90 allopurinol 200 mg tablet 200 mg PO DAILY Qty: 90 3RF levothyroxine [Synthroid] 100 mcg tablet 100 mcg PO DAILY Qty: 90 3RF amlodipine 10 mg tablet 10 mg PO DAILY Qty: 90 3RF lisinopril 30 mg tablet See Rx Instructions .ROUTE .COMPLEX Qty: 90 4RF Dose Instruction: TAKE ONE TABLET BY MOUTH EVERY DAY Rx Instructions: TAKE ONE TABLET BY MOUTH EVERY DAY clonazepam 0.5 mg tablet 0.5 mg PO BID PRN (Reason: sleep or anxiety) Qty: 60 0RF acetaminophen [Tylenol] 325 mg tablet 650 mg PO Q6H PRN (Reason: pain) Qty: 30 0RF Discharge Instructions Instructions: Diarrhea, Adult ED Additional Instructions: You were seen in the emergency department today for evaluation of nausea with vomiting and diarrhea. In our department a full physical examination performed, had laboratory studies that were reassuring and had a CT scan that did not show any severe abnormalities to account for your symptoms. You likely have a diarrheal illness which is usually caused by a bacteria or virus. You should continue to use [id number] medications including Tylenol, Pepto-Bismol or Maalox. Please continue all your home medications, and I provided you with a short course of Zofran for symptomatic management of pain and nausea. You need to follow-up with your primary care provider in the next few days to discuss next steps in management, because if you have persistent diarrhea, if your diarrhea turns bloody, or if you have a change or worsening in your abdominal pain you will need further workup and management at that time. Discharge Data Discharge Date/Time-TO BE ENTERED AT DEPARTURE: 08/05/24 16:45 HPI General Date/Time Provider Initiated Documentation: 08/05/24 14:01 . HPI Narrative: MDM Patient arrived tachycardic into the 110s concerning for the possibility of sepsis for which she received piperacillin/tazobactam lactate assessment 500 cc of crystalloid following blood cultures. No recent antibiotic use so my suspicion is low for C. difficile so we will defer PCR testing at this point in time. Given elevated BMI will obtain lipase to assess for pancreatitis. ECG nonischemic my suspicion is low for ACS given her diarrhea however will obtain complete troponin testing. No pain out of proportion to suggest necrotizing soft tissue infection. No rash to abdomen to suggest zoster. No significant l eft lower quadrant tenderness nor fevers to suggest diverticulitis. No significant right lower quadrant tenderness to suggest appendicitis. No dysuria nor frequency so my suspicion is low for UTI. No unilateral flank pain to suggest ureterolithiasis. Patient was initially hypoxic but has no respiratory distress and no chest pain or upper quadrant pain so my suspicion is low for PE so I did not send a D-dimer. Will reassess following labs. 4:20 PM Late charting due to patient care. Patient did have labs notable for no significant leukocytosis. Given her abdominal tenderness I completed a CT scan which was reassuring against any acute pathology showing rather signs of a diarrheal illness. Her tachycardia resolved with treatment of her pain using IV acetaminophen. Her lactate was only slightly elevated but less than 2 mmol/L. Given her improved symptoms and persistently elevated blood pressures but was not suspicious for sepsis. She had no signs of appendicitis or diverticulitis. Her initial troponin was undetectable given the duration of time since her symptoms began I did not feel that she required trending of her troponins. Her PCR was negative for COVID influenza and RSV. We discussed that her symptoms were similar to prior symptoms from last fall. She has CKD but no GUS. No history of inflammatory bowel disease and patient specifically denies Crohn's or ulcerative colitis so my suspicion for new onset inflammatory bowel disease is low given the patient's age. Chronic conditions affecting the care of the patient: Diabetes History obtained from an outside historian: N/A External record review: [facility] [place] Diagnostic interpretations performed by me: Per my independent interpretation chest x-ray shows: Per my independent interpretation EKG shows: Narrow complex sinus tachycardia at a rate of 101. Low voltage. Normal axis. Poor R wave progression. No ST segment abnormalities. No T wave versions. Appears similar to prior. ]Medications: Ondansetron antibiotics 500 cc crystalloid Social determinants of health affecting disposition: N/A Management discussed with: N/A Treatment/interventions considered: N/A Response to therapies provided: Improved symptoms in the ED HPI The patient presents for evaluation of diarrhea, nausea, and lightheadedness. She reports experiencing severe diarrhea, necessitating urgent bathroom visits. These symptoms began on 07/13/2024, the day of her flight to [place]. Although there was a brief period of relief, the symptoms have since recurred intermittently. She also experiences abdominal pain but does not report any dysuria. She has not been exposed to any sick individuals recently. She has not been on any antibiotics recently. She recalls a similar episode in May, which she attributes to dehydration from diarrhea and vomiting. She denies black or bloody stools. She reports that she has had a colonoscopy in the past several years and this was unremarkable. Accompanying these episodes, she experiences lightheadedness and a near-fainting sensation. She has not experienced any syncope but admits to feeling lightheaded today. She is currently unemployed. She also reports nausea and two episodes of vomiting, one during her trip and another today. Her appetite has been poor, with only partial consumption of a biscuit. She has not taken any antiemetics today as she did not experience nausea until arriving at the clinic. She reports no recent fevers, cough, or respiratory distress. She does not smoke, drink alcohol, or use illicit drugs. She is currently unemployed. Exam General: Well-appearing in no acute distress speaking in complete sentences. Head: Normocephalic, atraumatic. Eye: Extraocular eye movements intact. No conjunctival injection. No scleral icterus. Ear, nose, mouth, throat: Grossly normal inspection. Normal voice, handling secretions normally. Neck: Trachea midline. Cardiovascular: Well-perfused distal extremities. Respiratory: Nonlabored respiration. Clear lungs bilaterally Gastrointestinal: Nondistended abdomen. Soft. Minimal bilateral suprapubic tenderness. No rebound. No guarding. Musculoskeletal: No edema. Moving all 4 extremities spontaneously. Skin: Normal for age and race, grossly normal temperature and turgor. No acute rash. Neurologic: Alert and appropriate, no apparent acute deficits. Psychiatric: Mood and manner are appropriate. Grooming and personal hygiene are appropriate. Related Data Home Medications ?Medication ?Instructions ?Recorded ?Confirmed acetaminophen 325 mg tablet 650 mg (2 x 325 mg) PO Q6H PRN 03/22/19 08/05/24 (Tylenol) pain #30 tabs cholecalciferol (vitamin D3) 25 2,000 unit PO DAILY #90 tabs 10/13/19 08/05/24 mcg (1,000 unit) tablet omeprazole 20 mg capsule,delayed 20 mg PO DAILY PRN 05/17/20 08/05/24 release duloxetine 60 mg capsule,delayed 60 mg PO DAILY #90 tab-caps 05/08/22 08/05/24 release (Cymbalta) ondansetron HCl 4 mg tablet 4 mg PO Q8H PRN nausea and 10/09/22 08/05/24 vomiting #60 tabs allopurinol 200 mg tablet 200 mg PO DAILY #90 tabs 06/10/23 08/05/24 albuterol sulfate 90 mcg/actuation 2 inh inhalation Q4H PRN shortness 07/13/23 08/05/24 aerosol inhaler of breath or wheezing #18 grams inhalational spacing device #1 ea 07/13/23 08/05/24 (Aerochamber MV spacer) montelukast 10 mg tablet 10 mg PO QHS #90 tabs 07/13/23 08/05/24 levothyroxine 100 mcg tablet 100 mcg PO DAILY #90 tab-caps 10/04/23 08/05/24 (Synthroid) bupropion HCl 150 mg 24 hr tablet, 150 mg PO QAM #90 tabs 11/11/23 08/05/24 extended release (Wellbutrin XL) lamotrigine 100 mg tablet 200 mg PO DAILY 12/02/23 08/05/24 amlodipine 10 mg tablet 10 mg PO DAILY #90 tabs 02/01/24 08/05/24 lisinopril 30 mg tablet See Rx Instructions .Route 02/01/24 08/05/24 .COMPLEX #90 tabs aripiprazole 5 mg tablet (Abilify) 5 mg PO DAILY #90 tabs 05/29/24 08/05/24 clonazepam 0.5 mg tablet 0.5 mg PO BID PRN sleep or anxiety 07/24/24 08/05/24 #60 tabs ondansetron 4 mg disintegrating 4 mg PO BID 5 days #10 tabs 08/05/24 tablet Previous Rx's ?Medication ?Instructions ?Recorded acetaminophen 325 mg tablet 650 mg (2 x 325 mg) PO Q6H PRN 03/22/19 (Tylenol) pain #30 tabs ondansetron HCl 4 mg tablet 4 mg PO Q8H PRN nausea and 10/09/22 vomiting #60 tabs allopurinol 200 mg tablet 200 mg PO DAILY #90 tabs 06/10/23 albuterol sulfate 90 mcg/actuation 2 inh inhalation Q4H PRN shortness 07/13/23 aerosol inhaler of breath or wheezing #18 grams inhalational spacing device #1 ea 07/13/23 (Aerochamber MV spacer) montelukast 10 mg tablet 10 mg PO QHS #90 tabs 07/13/23 levothyroxine 100 mcg tablet 100 mcg PO DAILY #90 tab-caps 10/04/23 (Synthroid) bupropion HCl 150 mg 24 hr tablet, 150 mg PO QAM #90 tabs 11/11/23 extended release (Wellbutrin XL) amlodipine 10 mg tablet 10 mg PO DAILY #90 tabs 02/01/24 lisinopril 30 mg tablet See Rx Instructions .Route 02/01/24 .COMPLEX #90 tabs aripiprazole 5 mg tablet (Abilify) 5 mg PO DAILY #90 tabs 05/29/24 clonazepam 0.5 mg tablet 0.5 mg PO BID PRN sleep or anxiety 07/24/24 #60 tabs ondansetron 4 mg disintegrating 4 mg PO BID 5 days #10 tabs 08/05/24 tablet Allergies Allergy/AdvReac Type Severity Reaction Status Date / Time lactose AdvReac Intermediate Diarrhea Verified 08/05/24 13:42 ziprasidone HCl (From Geodon) AdvReac Intermediate leg pain, Verified 08/05/24 13:42 couldn't sit still ziprasidone mesylate (From AdvReac Intermediate leg pain, Verified 08/05/24 13:42 Geodon) couldn't sit still amoxicillin (Amoxicillin) AdvReac GI upset Verified 08/05/24 13:42 Metronidazole HCl (From AdvReac GI UPSET Verified 08/05/24 13:42 Flagyl) General Stated Complaint: [facility]Medical MAYRA: 3 Course Vital Signs Vital signs: Vital Signs Temperature 36.9 C 08/05/24 13:39 Pulse 113 H 08/05/24 13:39 Respiratory Rate 18 08/05/24 13:39 Blood Pressure 168/85 H 08/05/24 13:39 Pulse Oximetry 91 L 08/05/24 13:39 Temperature 36.9 C 08/05/24 13:44 Pulse 113 H 08/05/24 13:44 Respiratory Rate 25 H 08/05/24 14:03 Respiratory Effort Non-Labored 08/05/24 14:03 Respiratory Depth Normal 08/05/24 14:03 Respiratory Pattern Normal 08/05/24 14:03 Blood Pressure 168/85 H 08/05/24 13:44 Blood Pressure Position Sitting 08/05/24 13:44 Pulse Oximetry 91 L 08/05/24 13:44 Oxygen Delivery Method Room Air 08/05/24 13:44 Oxygen Flow Rate 0 08/05/24 13:44 Lab/Test Results Lab/Test Results: 08/05/24 14:02 Blood Blood Culture - Pending 08/05/24 14:02 Blood Blood Culture - Pending Laboratory Tests Range/Units 08/05/24 08/05/24 14:05 14:05 WBC (4.4-10.8) 10^3/uL 18.68 H RBC (3.93-5.22) 10^6/uL 4.69 Hgb (11.2-15.7) g/dL 14.3 Hct (36.0-46.0) % 45.2 MCV (80-95) fL 96 H MCH (27.0-33.0) pg 30.5 MCHC (32.0-36.0) % 31.6 L RDW (11.7-14.6) % 13.9 Plt Count (130-400) 10^3/uL 413 H MPV (8.0-11.0) fL 9.3 Immature Gran % % 0.4 Neutrophils % % 79.0 Lymphocytes % % 10.3 Monocytes % % 4.9 Eosinophils % % 5.1 Basophils % % 0.3 Nucleated RBC % (0.0-0.3) % 0.0 Absolute Neutrophils (1.2-6.7) 10^3/uL 14.76 H Absolute Lymphocytes (1.2-3.4) 10^3/uL 1.92 Absolute Monocytes (0.1-0.8) 10^3/uL 0.92 H Absolute Eosinophils (0.0-0.7) 10^3/uL 0.95 H Absolute Basophils (0.0-0.2) 10^3/uL 0.06 VBG pH (7.31-7.41) 7.35 VBG pCO2 (41-51) mmHg 47 VBG pO2 mmHg 38 VBG HCO3 (23-28) mmol/L 26 VBG Total CO2 (24-29) mmol/L 24 VBG O2 Saturation % 71 VBG Base Excess (-2-3) mmol/L 1 VBG Lactate (0.6-1.4) mmol/L 1.6 H Cancelled Medical Decision Making Quality:SDOH Health Related Social Needs: Health related social needs details NA [facility] All Active Problems (Updated 08/05/24 @ 16:01 by Nakul Sandoval MD) Diarrhea (Acute) Adrenal nodule (Acute) Pelvic floor dysfunction in female (Acute) Tinnitus, bilateral (Acute) Hypothyroidism (Chronic 11/28/12) 2 nodules on the left side of the thyroid Allergies (Acute) Conjunctivitis (Acute) Adnexal mass (Acute) MRI on 07/02/23: 4.0 x 2.5 cm left adnexal mass Impacted cerumen, right ear (Acute) Anxiety (Chronic) Depressive disorder (Chronic) suicidal 01/14. [facility] [place] 2015 chronic refractory depression Essential hypertension (Chronic 08/21/13) Gastroesophageal reflux disease (Chronic) Refill her antireflux medications. Diabetes (Chronic) Gout (Chronic) Chronic kidney disease, stage 3 (Acute) Asymmetrical sensorineural hearing loss (Acute) Medical History UTI (urinary tract infection), uncomplicated Prolapse of vaginal wall Onychomycosis right great toe 2021 Insomnia History of basal cell cancer MATT on CPAP PTSD (post-traumatic stress disorder) Vitamin D deficiency (10/18/15) Rosacea Primary fibromyalgia syndrome Nephrolithiasis Ureteroscopy 2003 Migraine Surgical History Status post cystoscopy Status post cholecystectomy Status post breast biopsy History of unilateral oophorectomy H/O excision of mass (~03/22/19) Skin lesion excision on the LLE History of esophagogastroduodenoscopy (EGD) (06/14/18) dr escamilla, mild gastropathy H/O colonoscopy (06/14/18) dr escamilla, no abnormalities, repeat in ten years Oophrectomy, Left (~04/2012) [facility] [place] [facility] Family History Mother Breast cancer >50yrs Hyperlipidemia Hypertension Thyroid disease History of venous thromboembolism Paternal Grandmother Breast cancer >50yrs Social History Smoking/Tobacco Use Status: Never Second Hand Exposure: No Smoking risk assessment performed?: Yes Alcohol Intake: never Drug use: Never Substance use type: does not use Adopted: No Caregiver/Support person: No Household members: spouse and children Housing: house Number of Children: 3 Communication Needs: Hard of Hearing Education Level: college Do you need help understanding health information?: Never current occupation: RETIRED Pets and animals: Yes Pets and animals: cat(s) Sexually active: No Do you think of yourself as: straight/heterosexual Current gender identity: female What is your relationship status?: How often do you talk on the phone with friends or family?: decline to answer How often do you get together with friends or relatives?: decline to answer How often do you attend worship or anabaptism services?: decline to answer Do you belong to any clubs or organized social groups?: no Panel score (0-1 are the most socially isolated patients): 1 What type of physical activity do you participate in: none Mary/Yazidi: Non amish Seatbelt use: always Helmet use: No Drive intox or ride w/intox tour bus driver/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 Domingo,RN 06/07/23 Female Reproductive History Menstrual Age of Menarche: 13 Menopause type: natural History History 3 Para 3 Hx # Term Pregnancies 3 Multiple births Hx # Pregnancies Ectopic pregnancies AB induced Hx Number of Living Children 3 AB spontaneous
[2024-08-05] MEDS: PIPERACILLIN/TAZO 3.375 GM in Normal Saline 50 ML IVPB (14:30)
--- NOTE | 2024-08-05 14:30 | DI.CT_ITS ---
Exam(s) CT ABDOMEN PELVIS W EXAM: CT ABDOMEN PELVIS W CLINICAL HISTORY: Bilateral lower quadrant pain. TECHNIQUE: Imaging Protocol: Axial computed tomography images with coronal and sagittal reformatted images were created and reviewed CONTRAST MATERIAL: Intravenous: Omnipaque-350 75cc Oral: None COMPARISON: CT CT ABDOMEN PELVIS W from 05/21/2024 FINDINGS: VISUALIZED LUNG BASES: Mild benign-appearing increased markings are noted in the right lower lobe pos terior basal segment. There are no pleural effusions.. ABDOMEN: There is no ascites. LIVER: The liver is again noted be hypodense implying steatosis. There no discrete focal hepatic les ions. No dilated intrahepatic ducts. GALLBLADDER/BILIARY: The gallbladder is again noted be surgically absent. CBD is not dilated. PANCREAS: No evidence of pancreatic mass nor dilatation of the pancreatic duct. SPLEEN: Spleen size normal. Still small solitary calcified granuloma again noted in the inferior asp ect of the spleen. Splenic and portal veins are patent. ADRENALS: There are no significant adrenal masses. KIDNEYS:Benign cortical cyst again noted in the anterolateral cortex of the left kidney measuring 1.5 x 1.3 cm, not requiring further workup. There are no renal calculi nor hydronephrosis. No solid re nal masses. Ureters are not dilated. Urinary bladder is collapsed.. ABDOMINAL AORTA: Abdominal aorta is not enlarged. LYMPH NODES:There is no retroperitoneal nor paraaortic adenopathy. ABDOMINAL WALL: Fat only containing bilateral inguinal hernias. GI: There appears to be a small-bowel enteritis pattern. The small bowel loops are mostly fluid-fill ed but not significantly dilated. There is also fluid noted throughout most of the colon loops. The re is no evidence of bowel obstruction, free air, nor abscess. PELVIS: GI: The position of the cecum is low in the pelvis. There is no evidence of appendicitis.There is si gmoid diverticuli without evidence of acute diverticulitis. There is fluid throughout the colon and some bowel loops consistent with probable enteritis/diarrhea. There is a 2.6 cm length segment of th e rectosigmoid which is somewhat narrowed but this is possibly just related to peristalsis.Position o f the cecum is in the low pelvis. The ileocecal valve appears unremarkable. Appendix unremarkable. LYMPH NODES: There is no intrapelvic nor inguinal adenopathy. REPRODUCTIVE: Uterus and adnexal regions unremarkable and unchanged from previous URINARY BLADDER: Collapsed. No radiopaque calculi within the lumen. OSSEOUS: No fractures and no significant osseous lesions. Sacroiliac joints appear unremarkable. IMPRESSION: 1. Gallbladder is again noted be surgically absent. The biliary tree is not dilated. 2. Hepatic steatosis again noted. No discrete focal hepatic lesions. 3. There is an enteritis pattern in the small bowel with the mid and distal small bowel loops being f luid-filled but not dilated and there is no evidence of bowel obstruction. There is also fluid noted in both sides of the colon such as with diarrhea illness. 4. There is left-sided colon diverticulosis but no evidence of obvious acute diverticulitis. There i s also no evidence of acute appendicitis. RADIATION DOSE DELIVERED: 647.77mGy.cm Total DLP DATA REPOSITORY: All CT scans at this facility are submitted to the National Radiology Data Registry (NRDR) Dose Index Registry (DIR) with the [employer] (ACR). RADIATION OPTIMIZATION: All CT scans at this facility use at least one of these dose optimization te chniques: automated exposure control; mA and/or kV adjustment per patient size (includes targeted exa ms where dose is matched to clinical indication); or iterative reconstruction.
[2024-08-05 14:39] LABS: ALT 29 U/L (14-59); AST 17 U/L (15-37); Alkaline Phosphatase 127 U/L (46-116); Anion Gap 7.9 mmol/L (3-11); BUN 13 mg/dL (7-18); Bilirubin, Total 0.36 mg/dL (0.2-1.0); CO2 29.1 mmol/L (21.0-32.0); CREATININE 1.4 mg/dL (0.55-1.02); Chloride 106 mmol/L (98-107); Estimated GFR 42.01 (mL/min/1.73m2); Glucose 172 mg/dL (74-106); Lipase 26 U/L (<78); NT-proBNP 59 pg/mL (<300); Sodium 143 mmol/L (136-145); Total Protein 8.6 g/dL (6.4-8.2)
[2024-08-05] MEDS: Ondansetron 4 MG/2 ML VIAL IVP (14:44)
[2024-08-05 14:49] LABS: Calcium 10.6 mg/dL (8.5-10.1)
[2024-08-05 14:51] LABS: Troponin I < 4 ng/L (<or=51)
[2024-08-05 15:02] LABS: COVID-19 PCR Negative (Negative); Influenza A PCR Negative (Negative); Influenza B PCR Negative (Negative); RSV PCR Negative (Negative)
[2024-08-05 15:04] LABS: Source Nasopharynx
[2024-08-05] MEDS: Normal Saline - Diluent 50 ML VIAL IJ (15:09)
[2024-08-05] MEDS: Omnipaque 350 MG/ML 100 ML BTL IJ (15:10)
[2024-08-05 15:41] VITALS: PULSE 91
[2024-08-05] MEDS: ACETAMINOPHEN 1,000 MG/100 ML BAG 400 MG IVPB (15:49)
[2024-08-05 16:32] VITALS: BP 177/86; PULSE 88; RESP 13; TEMP 36.5; O2SAT 98
== END 2024-08-05 16:45 | disposition home or self-care (01) ==
PROVIDERS: Emergency Provider Emergency Medicine; PCP Nurse Practitioner Family
DX: R19.7 Diarrhea, unspecified (principal); R11.2 Nausea with vomiting, unspecified; R00.0 Tachycardia, unspecified; E03.9 Hypothyroidism, unspecified; I12.9 Hypertensive chronic kidney disease with stage 1 through stage 4 chronic kidney disease, or unspecified chronic kidney disease; N18.30 Chronic kidney disease, stage 3 unspecified
CPT/HCPCS: 80053; 82805; 83690; 87040; 87637; 93005; 96365; 96367; 96375; 99285; 74177; 83605; 83880; 84484; 85025; 93010; J0131; J2405; J2543; J3490

== ENCOUNTER 2024-08-17 14:03 | Outpatient (REF) | payer MEDICARE, MEDICAID, SELFPAY | END 2024-08-17 14:04 | disposition home or self-care (01) | LOC: LBN 14:03 | PROVIDERS: PCP Nurse Practitioner Family; Visit Provider Physician Assistant | DX: N39.0 Urinary tract infection, site not specified (principal) | CPT/HCPCS: 87086 ==

== ENCOUNTER 2024-09-21 01:16 | Outpatient (CLI) | payer MEDICARE, MEDICAID, SELFPAY ==
[2024-09-21 13:12] LABS: HCT 40.8 % (36.0-46.0); HGB 12.8 g/dL (11.2-15.7); MCH 30.3 pg (27.0-33.0); MCHC 31.4 % (32.0-36.0); MCV 97 fL (80-95); MPV 9.2 fL (8.0-11.0); Platelet Count 317 10^3/uL (130-400); RBC 4.23 10^6/uL (3.93-5.22); RDW 13.5 % (11.7-14.6); RDW-SD 47.8 fL; WBC 8.11 10^3/uL (4.4-10.8)
[2024-09-21 14:30] LABS: ALT 29 U/L (14-59); AST 21 U/L (15-37); Albumin 3.4 g/dL (3.4-5.0); Alkaline Phosphatase 105 U/L (46-116); Anion Gap 8.6 mmol/L (3-11); BUN 15 mg/dL (7-18); Bilirubin, Total 0.29 mg/dL (0.2-1.0); CO2 27.4 mmol/L (21.0-32.0); CREATININE 1.6 mg/dL (0.55-1.02); Calcium 9.8 mg/dL (8.5-10.1); Chloride 107 mmol/L (98-107); Estimated GFR 35.79 (mL/min/1.73m2); Glucose 194 mg/dL (74-106); Potassium 4.3 mmol/L (3.5-5.1); Sodium 143 mmol/L (136-145); TSH (W/Ref FT4) 3.09 uIU/mL (0.36-3.74); Total Protein 7.5 g/dL (6.4-8.2)
[2024-09-25 13:21] LABS: Food Panel 0.26 kU/L (<0.70)
== END 2024-09-21 01:17 | disposition home or self-care (01) ==
LOC: LBO 01:16
PROVIDERS: PCP Nurse Practitioner Family; Visit Provider Nurse Practitioner Family
DX: I10 Essential (primary) hypertension; E11.9 Type 2 diabetes mellitus without complications; E03.9 Hypothyroidism, unspecified; N18.30 Chronic kidney disease, stage 3 unspecified; F32.9 Major depressive disorder, single episode, unspecified; F41.9 Anxiety disorder, unspecified; K52.9 Noninfective gastroenteritis and colitis, unspecified
CPT/HCPCS: 36415; 80053; 85027; 84443; 86003

== ENCOUNTER 2024-10-23 02:09 | Outpatient (CLI) | payer MEDICARE, SELFPAY ==
--- NOTE | 2024-10-23 12:54 | DI.MAMMO_ITS ---
Exam(s) MAMMO SCREENING EXAM: MAMMO SCREENING CLINICAL HISTORY: screening,z12.39. TECHNIQUE: Bilateral full field digital CC and MLO mammographic images were obtained with 3D tomosyn thesis and utilizing computer aided detection (CAD). COMPARISON: Prior mammograms dating back to 2016 were reviewed. FINDINGS: In the left breast there is a lobulated nodular density located laterally, below the midline, 10 cm i n from the nipple and measuring approximately 1.5 by 1.2 cm. There are 2 small microcalcifications a ssociated with the lateral aspect of this nodule. In addition, there is an inferiorly located nodule in the left breast measuring 6 x 4 mm and located approximately 9 cm in from the nipple on the CC view. Spot compression views also recommended this l evel. In the opposite-right breast there is a biopsy marker clip adjacent to a small nodule located postero medially. There is also a spiculated nodular density on the right CC view located 6 cm in from the nipple and m easuring 8 x 8 mm, suspicious. This was not previously present on the side 2022 mammogram. This is located 7 cm in from the nipple on the MLO view. It contains a small internal calcification. It is suspicious. There is a superficially located nodule laterally in the right breast 13 cm from the nipple and measu ring 4 by 3 mm. This is probably skin mole or sebaceous cyst. There is no significant thickening-retraction. IMPRESSION: Bilateral nodules as described individually above. The most suspicious nodule is a spiculated 8 x 8 mm nodule in the right breast located 6 cm in from the nipple on the CC view and 7 cm in from the nip ple on the MLO view. This was not present on the outside mammogram of 2022. Multiple bilateral spot compression views and bilateral complete breast ultrasound are recommended. BI-RADS Category 0 - Incomplete: Need additional imaging evaluation Breast Density - Category B - Scattered areas of fibroglandular density Breast density Category C or D implies that the patient has dense breast tissue. Dense breast tissue can make it harder to find cancer on a mammogram. Dense breast tissue is also associated with an incr eased risk of breast cancer. This information about the result of the mammogram report was provided to the patient to raise their awareness. Use this report when you speak with the patient about their risks for breast cancer, which includes their family history. At that time, you may recommend additional screening tests (Ultrasoun d or MRI) as these tests may add significant information. A negative radiographic report should not delay biopsy if a dominant or clinically suspicious mass is present. Up to ten percent of cancers are not identified on mammography. A negative report may reinforce clinical impression. Adenosis and dense breasts may obscure an underlying neoplasm. False positive reports average 6 to 10%. Patient will receive a letter notifying them of these results.
== END 2024-10-23 02:29 ==
LOC: DI 02:09
PROVIDERS: PCP Nurse Practitioner Family; Visit Provider Nurse Practitioner Family
DX: Z12.31 Encounter for screening mammogram for malignant neoplasm of breast (principal); R92.323 Mammographic fibroglandular density, bilateral breasts
CPT/HCPCS: 77063; 77067

== ENCOUNTER 2024-10-24 06:26 | Emergency (ER) | payer MEDICARE, SELFPAY ==
--- NOTE | 2024-10-24 06:15 | RT.EKG_ITS ---
APPROVED REPORT Exam: Resting ECG Reason for Exam: dizzy Patient Location: E HR:87 bpm ECG Measurements Heart Rate 87 AXIS SC 150 P 34 QRSd 87 QRS 26 QT 351 T 30 QTc 422 Conclusion Sinus rhythm, rate 87 No interval abnormalities No STEMI No significant changes from priors
[2024-10-24 06:30] VITALS: BP 187/92; PULSE 89; RESP 20; TEMP 36.9; O2SAT 97
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
[2024-10-24 07:44] VITALS: BP 154/63; PULSE 93; RESP 16; O2SAT 98
== END 2024-10-24 07:44 | disposition home or self-care (01) ==
PROVIDERS: Emergency Provider Emergency Medicine; PCP Nurse Practitioner Family
DX: R00.0 Tachycardia, unspecified (principal); T43.595A Adverse effect of other antipsychotics and neuroleptics, initial encounter; E11.22 Type 2 diabetes mellitus with diabetic chronic kidney disease; I12.9 Hypertensive chronic kidney disease with stage 1 through stage 4 chronic kidney disease, or unspecified chronic kidney disease; N18.30 Chronic kidney disease, stage 3 unspecified; E03.9 Hypothyroidism, unspecified; Z79.899 Other long term (current) drug therapy
CPT/HCPCS: 93005; 99283; 93010

== ENCOUNTER 2024-11-01 02:15 | Outpatient (CLI) | payer MEDICARE, SELFPAY ==
--- NOTE | 2024-11-01 | DI.MAMMO_ITS ---
Exam(s) US BREAST LT COMPLETE US BREAST RT COMPLETE MG MAMMO SCREEN CALL BACK BI EXAM: MG MAMMO SCREEN CALL BACK BI U/S breast bilateral complete CLINICAL HISTORY: F/U ABNL MAMMO, PAULINA NODULES, R92.8. TECHNIQUE: Craniocaudal and mediolateral oblique Full Field Digital Mammography views of the bilater al breast with Computer Aided Diagnosis followed by Tomosynthesis and bilateral complete breast ultra sound. All 4 quadrants of the breast were evaluated sonographically. The retroareolar region and axil la were also interrogated sonographically. COMPARISON: US US BREAST RT COMPLETE from 11/01/2024 US US BREAST LT COMPLETE from 11/01/2024 FINDINGS: Mammography/Tomosynthesis: Masses/Architectural Distortion: In the left breast, there is a well-circumscribed ovoid nodule in th e upper outer quadrant. There is also an ovoid nodule in the posterior central left breast. In the ri ght breast, there is a spiculated mass centrally at about 12 o'clock. The nodule described in the out er right breast is consistent with a mole. Microcalcifictions: No suspicious pleomorphic-type are seen. Skin Thickening/Nipple Retraction: None. Bilateral complete breast US: Echotexture: Normal appearance of the glandular tissue. Shadowing: No suspicious foci. Cyst: In the left breast at the 2 o'clock position 8 cm from the nipple, there is a lobulated cyst pr esent this would correspond to the mammographic finding in the upper outer quadrant. There is also a simple cyst seen at the 3 o'clock position of the left breast 6 cm from the nipple. Solid lesions: In the right breast, there is a subtle hypoechoic solid angular mass at the 12 o'clock position 4 cm from the nipple. It measures 1 cm x 0.4 x 0.9 cm. This would appear to correspond to t he mammographic abnormality. Ductal dilation: None. IMPRESSION: 1. Suspicious mass in the right breast at the 12 o'clock positions 4 cm from the nipple. This corresp onds to the spiculated mass seen on the mammogram. 2. The finding in the right breast is highly suspicious for malignancy. 3. The findings were discussed with the patient on the date of the examination. The findings were di scussed with Dr. Ribera at 2:40 p.m. on 11/01/2024. BI-RADS Category 5 - Highly Suggestive of Malignancy: Biopsy recommended Breast Density - Category B - Scattered areas of fibroglandular density Breast density Category C or D implies that the patient has dense breast tissue. Dense breast tissue can make it harder to find cancer on a mammogram. Dense breast tissue is also associated with an incr eased risk of breast cancer. This information about the result of the mammogram report was provided to the patient to raise their awareness. Use this report when you speak with the patient about their risks for breast cancer, which includes their family history. At that time, you may recommend additional screening tests (Ultrasoun d or MRI) as these tests may add significant information. A negative radiographic report should not delay biopsy if a dominant or clinically suspicious mass is present. Up to ten percent of cancers are not identified on mammography. A negative report may reinforce clinical impression. Adenosis and dense breasts may obscure an underlying neoplasm. False positive reports average 6 to 10%. Patient will receive a letter notifying them of these results.
== END 2024-11-01 02:35 ==
LOC: DI 02:15
PROVIDERS: PCP Nurse Practitioner Family; Visit Provider Nurse Practitioner Family
DX: Z12.31 Encounter for screening mammogram for malignant neoplasm of breast (principal); N63.15 Unspecified lump in the right breast, overlapping quadrants
CPT/HCPCS: 76642; 77063; 77067

== ENCOUNTER 2025-03-07 16:28 | Emergency (ER) | payer MEDICARE, SELFPAY ==
[2025-03-07] VITALS (30 sets, daily range): BP systolic 143–178; BP diastolic 48–145; PULSE 73–120; RESP 9–31; TEMP 36.7; O2SAT 95–99
--- NOTE | 2025-03-07 16:30 | RT.EKG_ITS ---
APPROVED REPORT Exam: Resting ECG Reason for Exam: Tachycardia, GI bleed Patient Location: E HR:103 bpm ECG Measurements Heart Rate 103 AXIS WY 140 P 22 QRSd 83 QRS 15 QT 338 T 13 QTc 442 Conclusion Sinus tachycardia...rate> 99 Low voltage, precordial leads...precordial leads <1.0mV Sinus tachycardia normal axis normal intervals no acute ischemic changes
--- NOTE | 2025-03-07 16:52 | DI.CT_ITS ---
Exam(s) CT ABDOMEN PELVIS CTA EXAM: CT ABDOMEN PELVIS CTA CLINICAL HISTORY: LLQ abd Pain, GI bleed, Hx Diverticulosis. TECHNIQUE: Imaging Protocol: Axial computed tomography images with coronal and sagittal reformatted images were created and reviewed CONTRAST MATERIAL: Intravenous: Omnipaque 350 Contrast volume:75 mL Oral: None COMPARISON: CT CT ABDOMEN PELVIS W from 08/05/2024 FINDINGS: Visualized lung bases are clear. ABDOMEN: There is no significant atherosclerotic involvement of the abdominal aorta and its takeoff vessels.Also no evidence of significant stenosis nor aneurysm in the common and external and internal iliac arteries nor within the common femoral arteries.The celiac and superior mesenteric arteries are patent.Inferior mesenteric artery is patent. Both renal arteries are patent without significant stenosis nor fibromuscular dysplasia. GI: There is no intraluminal extravasation of injected contrast to suggest a culprit GI bleeding site. However, there are multiple diverticuli evident in the descending-left colon as well as in the sigmoid and diverticuli are also seen at the level the splenic flexure of the colon. Appendix is seen and exhibits upper normal diameter. There is some mild periappendiceal streaking noted. No intraluminal appendicolith evident in the appendix. With respect of the colonic diverticuli, there does appear to be some very mild streaking around a few the diverticuli in the mid-upper left iliac fossa possibly mild diverticulitis. There is no free air nor abscess nor free fluid in this region or elsewhere in the pelvis. The colon is collapsed throughout most of its length and difficult to evaluate. There is no ascites. LIVER: Liver is hypodense implying steatosis. Also mildly enlarged. There are no hepatic lesions evident. There are no dilated intrahepatic ducts. GALLBLADDER/BILIARY: The gallbladder is again noted be surgically absent. CBD is not dilated. PANCREAS: No evidence of pancreatic mass nor dilatation of the pancreatic duct. SPLEEN: Spleen size is upper normal. Contains a single calcified granuloma but no concerning spleen lesions. Splenic and portal veins are patent. ADRENALS: Right adrenal gland unremarkable. There is a nodule in the lateral limb of the left adrenal gland which measures 1.6 x 1.5 cm, similar to previous. May represent an incidental adenoma. KIDNEYS: There is a 1.8 cm benign cyst in the lateral cortex of the left kidney. This does not require further workup. There are no solid renal masses. No obvious calculi nor hydronephrosis. No hydroureter. No calculi nor obvious masses in the urinary bladder.. ABDOMINAL AORTA: The abdominal aorta is not enlarged. LYMPH NODES: There is no retroperitoneal nor para-aortic adenopathy. No obvious mesenteric masses. ABDOMINAL WALL: Bilateral fat only containing inguinal hernias. GI: Large bowel is predominately collapsed. Does appear to exhibit a mild colitis pattern but this may be exaggerated by the fact that the colon is uniformly collapsed.z PELVIS: LYMPH NODES: There is no intrapelvic nor inguinal adenopathy. GI: Mild streaking around the otherwise normal appearing appendix. URINARY BLADDER: No calculi nor masses evident REPRODUCTIVE: Uterus is again noted be retroverted. Appears to contain a probable fibroid. No no abnormal adnexal masses nor free fluid. OSSEOUS: No significant osseous lesions. No fractures. No significant disc space narrowing. No osseous lesions. IMPRESSION: 1. There is no intraluminal contrast extravasation to point to a culprit area of active GI bleeding. 2. There is diverticulosis of the left side of the colon and sigmoid with minimal amount of streaking around some diverticuli in the upper left iliac fossa which may represent subtle diverticulitis. There is no free air in this region there is no evidence of abscess nor abnormal fluid collection in the pelvis. 3. There is very mild streaking around in otherwise normal appearing appendix 4. Colon is mostly collapsed. Appearance may reflect mild johnson colitis versus just lack of intraluminal content. Report called by myself to ER provider 03/07/2025 at 7:22 p.m. RADIATION DOSE DELIVERED: 1,787.36mGy.cm Total DLP DATA REPOSITORY: All CT scans at this facility are submitted to the National Radiology Data Registry (NRDR) Dose Index Registry (DIR) with the [employer] (ACR). RADIATION OPTIMIZATION: All CT scans at this facility use at least one of these dose optimization techniques: automated exposure control; mA and/or kV adjustment per patient size (includes targeted exams where dose is matched to clinical indication); or iterative reconstruction.
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
[2025-03-07 17:19] LABS: Abs Immature Grans 0.10 10^3/uL (0.0-0.06); HCT 36.8 % (36.0-46.0); HGB 12.2 g/dL (11.2-15.7); MCH 30.3 pg (27.0-33.0); MCHC 33.2 % (32.0-36.0); MCV 92 fL (80-95); MPV 10.0 fL (8.0-11.0); Platelet Count 267 10^3/uL (130-400); RBC 4.02 10^6/uL (3.93-5.22); RDW 13.2 % (11.7-14.6); RDW-SD 44.4 fL; WBC 7.29 10^3/uL (4.4-10.8)
[2025-03-07 17:30] LABS: INR 1.0 (0.9-1.1); Prothrombin Time 9.9 sec (9.1-11.1)
[2025-03-07] MEDS: Lactated Ringers 1,000 ML 1000 ML IV (17:33)
[2025-03-07 17:34] LABS: RBC Morphology Normal
[2025-03-07] MEDS: Pantoprazole 40 MG VIAL IVP (17:34)
[2025-03-07] MEDS: Ondansetron 4 MG/2 ML VIAL IVP (17:34)
[2025-03-07 17:35] LABS: Lipase 48 U/L (<78)
[2025-03-07 17:43] LABS: ALT 41 U/L (14-59); AST 26 U/L (15-37); Albumin 3.5 g/dL (3.4-5.0); Alkaline Phosphatase 139 U/L (46-116); Anion Gap 10.2 mmol/L (3-11); BUN 14 mg/dL (7-18); Bilirubin, Total 0.6 mg/dL (0.2-1.0); CO2 27.8 mmol/L (21.0-32.0); Calcium 10.0 mg/dL (8.5-10.1); Chloride 102 mmol/L (98-107); Estimated GFR 50.55 (mL/min/1.73m2); Glucose 200 mg/dL (74-106); Magnesium 1.7 mg/dL (1.8-2.4); Potassium 3.3 mmol/L (3.5-5.1); Sodium 140 mmol/L (136-145); Total Protein 7.4 g/dL (6.4-8.2); Troponin I 7 ng/L (<or=51)
[2025-03-07] MEDS: Omnipaque 350 MG/ML 100 ML BTL 75 ML IJ (18:54)
[2025-03-07] MEDS: Normal Saline - Diluent 50 ML VIAL IJ (18:54)
[2025-03-07] MEDS: Acetaminophen 325 MG TAB 650 MG PO (19:49)
[2025-03-07] MEDS: Magnesium Oxide 400 MG TAB PO (19:49)
[2025-03-07] MEDS: Potassium Chloride 20 MEQ TABCR 40 MEQ PO (20:06)
[2025-03-07] MEDS: Amoxicillin 875/Clav. 125 TAB PO (20:06)
[2025-03-07] MEDS: Normal Saline 100 ML (20:06)
== END 2025-03-07 20:28 | disposition home or self-care (01) ==
PROVIDERS: Emergency Provider Registered Nurse Emergency; PCP Nurse Practitioner Family
DX: T45.1X5A Adverse effect of antineoplastic and immunosuppressive drugs, initial encounter (principal); K52.1 Toxic gastroenteritis and colitis; K57.33 Diverticulitis of large intestine without perforation or abscess with bleeding; R10.32 Left lower quadrant pain; R11.0 Nausea
CPT/HCPCS: 80053; 83690; 86850; 86900; 86901; 93005; 96361; 96374; 96375; 99285; 74174; 83735; 84484; 85025; 85610; 93010; 99284; J2405; J2470; J3490

== ENCOUNTER 2025-04-30 16:07 | Outpatient (REF) | payer MEDICARE, SELFPAY | END 2025-04-30 16:08 | disposition home or self-care (01) | LOC: NCHCN 16:07 | PROVIDERS: PCP Nurse Practitioner Family; Visit Provider Nurse Practitioner Family | DX: L98.9 Disorder of the skin and subcutaneous tissue, unspecified (principal) | CPT/HCPCS: 87070; 87205 ==